=== PATIENT | female | born 1955 | race Caucasian/White ===

== ENCOUNTER 2017-02-01 16:02 | Inpatient (IN) | payer MEDICAID, OTHER ==
[2017-02-01 16:11] VITALS: BMI 26.5
[2017-02-01 16:27] LABS: BASO # 0.1 K/uL (0.0-0.2); BASO % 0.8 % (0.0-2.0); EOS # 0.1 K/uL (0.0-0.7); EOS % 1.3 % (0.0-4.0); HEMATOCRIT 45.7 % (34.0-47.0); LYMPH # 3.9 K/uL (1.0-4.3); LYMPH % 55.1 % (20.0-40.0); MEAN CELL VOLUME 89.2 fL (81.0-99.0); MEAN CORPUSCULAR HEMOGLOBIN 30.2 pg (27.0-31.0); MEAN CORPUSCULAR HGB CONC 33.9 g/dL (33.0-37.0); MEAN PLATELET VOLUME 7.9 fL (7.2-11.7); MONO # 0.4 K/uL (0.0-0.8); MONO % 5.4 % (0.0-10.0); NRBC % 0.1 % (0.0-2.0); RED CELL DISTRIBUTION WIDTH 13.1 % (11.5-14.5)
[2017-02-01] MEDS ORDERED: Labetalol 25mg/5ml Syringe ONE (16:30)
[2017-02-01 16:39] LABS: ALB/GLOB RATIO 1.2 (1.0-2.1); ALKALINE PHOSPHATASE 68 U/L (38-126); ALT/SGPT 28 U/L (9-52); AST/SGOT 28 U/L (14-36); BILIRUBIN,TOTAL 0.6 mg/dL (0.2-1.3); BLOOD UREA NITROGEN 12 mg/dL (7-17); CALCIUM 10.1 mg/dl (8.6-10.4); CARBON DIOXIDE 25 mmol/L (22-30); CHLORIDE 101 mmol/L (98-107); CHOLESTEROL 188 mg/dL (0-199); GFR AFRICAN-AMERICAN > 60; GLUCOSE,RANDOM 122 mg/dL (65-105); POTASSIUM 3.2 mmol/L (3.6-5.2); SODIUM 143 mmol/L (132-148)
[2017-02-01] MEDS ORDERED: levETIRAcetam 1,000 MG in Sodium Chloride 0.9% 100 ML IVPB STA (16:54)
--- NOTE | 2017-02-01 16:54 | CT ---
PROCEDURE: CT HEAD WITHOUT CONTRAST. HISTORY: Right sided weakness. Hypertensive. COMPARISON: None available. TECHNIQUE: Axial computed tomography images were obtained through the head/brain without intravenous contrast. Radiation dose: Total exam DLP = 870 mGy-cm. This CT exam was performed using one or more of the following dose reduction techniques: Automated exposure control, adjustment of the mA and/or kV according to patient size, and/or use of iterative reconstruction technique. FINDINGS: HEMORRHAGE: No intracranial hemorrhage. BRAIN: Subcortical and optic radiation edema is appreciated at the left frontal lobe but may spare the cortex. Mass effect causes a few mm but which midline shift towards the right ended a medial right frontal gyrus, possibly the cingulate gyrus appears somewhat hyperdense. This pattern is suspicious for vasogenic rather than cytotoxic edema and although upstroke is not completely excluded, this may represent neoplasm. No additional similar pattern is seen throughout the supra or infra tentorial brain parenchyma including the brainstem. Follow-up contrast CT the brain is advised for better characterization here. No suspicious extra-axial collection is identified in the midline brain and anatomy is otherwise unremarkable exclusive of the medial left frontal gyri. VENTRICLES: Unremarkable. No hydrocephalus. CALVARIUM: Unremarkable. PARANASAL SINUSES: Unremarkable as visualized. No significant inflammatory changes. MASTOID AIR CELLS: Unremarkable as visualized. No inflammatory changes. OTHER FINDINGS: None. IMPRESSION: Consider left frontal mass versus acute to subacute lobar brain infarction left frontal lobe. No intracranial hemorrhage. Minimal rightward midline shift is caused by edema locally. Follow-up CT with contrast is advised for better characterization. Findings were discussed with Dr. Thompson on 02/01/2017 16:35, with written down, read back confirmation. .
[2017-02-01 17:15] LABS: PHOSPHOROUS 3.1 mg/dL (2.5-4.5)
--- NOTE | 2017-02-01 17:22 | RAD ---
HISTORY: Right sided weakness. Hypertensive COMPARISON: No prior. FINDINGS: LUNGS: No active pulmonary disease. PLEURA: No significant pleural effusion identified, no pneumothorax apparent. CARDIOVASCULAR: Normal. OSSEOUS STRUCTURES: No significant abnormalities. VISUALIZED UPPER ABDOMEN: Normal. OTHER FINDINGS: None. IMPRESSION: No acute cardiopulmonary disease appreciated.
[2017-02-01] MEDS ORDERED: Iodixanol 320 MG/ML 100 ML BOTTLE IV ONE (17:37)
--- NOTE | 2017-02-01 18:34 | C.PDOC ---
Time Seen by Provider: 02/01/17 16:05 Chief Complaint (Nursing): Weakness/Neurological Deficit History Per: Patient, EMS, Family Onset/Duration Of Symptoms: Mins (ABOUT 45 minutes), Sudden Onset Current Symptoms Are (Timing): Still Present Fall Associated With With Symptoms: No Severity: Moderate Additional History Per: Prior Records - Symptoms Of CVA Character Of Deficits: Right: Weakness, Sensory Loss, Arm: Weakness, Sensory Loss, Leg: Weakness, Sensory Loss Recent Head Trauma: No Past Medical History Reviewed: Historical Data, Nursing Documentation, Vital Signs Vital Signs: Last Vital Signs Temp 99 F 02/01/17 16:43 Pulse 84 02/01/17 19:02 Resp 20 02/01/17 19:02 BP 163/76 H 02/01/17 19:02 Pulse Ox 99 02/01/17 19:04 - Medical History PMH: HTN Surgical History: No Surg Hx Family History: States: Unknown Family Hx - Social History Hx Alcohol Use: No Hx Substance Use: No Review Of Systems Except As Marked, All Systems Reviewed And Found Negative. Constitutional: Negative for: Fever, Weakness Cardiovascular: Negative for: Chest Pain Respiratory: Negative for: Shortness of Breath Gastrointestinal: Negative for: Vomiting, Abdominal Pain Musculoskeletal: Negative for: Neck Pain Skin: Negative for: Rash Neurological: Negative for: Headache Physical Exam - Physical Exam Appears: Non-toxic Skin: Normal Color, Warm, Dry, No Rash Head: Atraumatic, Normacephalic Eye(s): bilateral: PERRL, EOMI Neck: Normal ROM, Supple Cardiovascular: Rhythm Regular Respiratory: Normal Breath Sounds, No Accessory Muscle Use Gastrointestinal/Abdominal: Soft, No Tenderness Extremity: No Deformity Neurological/Psych: Oriented x3, Normal Speech, No Cerebellar Signs, No Normal Motor (Weakness on right side compared to left), No Normal Sensation (decreased sensation on right side compared to left), Other (Involuntary movements of right upper extremity. ) ED Course And Treatment - Laboratory Results Result Diagrams: 02/01/17 16:23 02/01/17 16:23 Lab Interpretation: No Acute Changes ECG: Interpreted By Me, Viewed By Me ECG Rhythm: Sinus Tachycardia, Nonspecific Changes ECG Interpretation: No Acute Changes Rate From EC O2 Sat by Pulse Oximetry: 99 Pulse Ox Interpretation: Normal - Radiology CXR: Viewed By Me, Read By Radiologist CXR Interpretation: Yes: No Acute Disease - CT Scan/US CT head Other Rad Studies (CT/US): Read By Radiologist, Radiology Report Reviewed CT/US Interpretation: IMPRESSION: Consider left frontal mass versus acute to subacute lobar brain infarction left frontal lobe. No intracranial hemorrhage. Minimal rightward midline shift is caused by edema locally. Follow-up CT with contrast is advised for better characterization. CTA of head Other Rad Studies (CT/US): Read By Radiologist, Radiology Report Reviewed CT/US Interpretation: Previously noted left frontal hypodensity with mild rightward midline shift and associated mass effect. demonstrates mild enhancement and is poorly characterized on the CT. Findings raise possibility for. neoplasm though other etiologies are not excluded. Recommend MR with contrast for further. evaluation. Progress Note: Pt is now sleeping and seizure activity has stopped after 1g of Keppra and a total of 6mg of Ativan. Reevaluation Time: 19:00 - Physician Consult Information Physician Contacted: Neal Iverson (Neuro) Outcome Of Conversation: He evaluated pt in the ED and recommended to give pt a total of 6mg of Ativan and 1 gram of Keppra IV. Progress - Interventions Interventions:: Observation, Oxygen - Medications Administered Oral: Aspirin Intravenous: Other (Ativan. Keppra) - Data Reviewed Data Reviewed: Lab, Diagnostic imaging, EKG, Old records - Critical Care Citical Care: Excluding Proc Time Critical Care Time: 60 minutes - Continuity of Care Discussed patient case with:: Patient, Family-HIPPA compliant, ED Nurse Discussed pt. case with farm consultant/specialty: Neurology Disposition Counseled Patient/Family Regarding: Studies Performed, Diagnosis - Disposition Disposition Time: 19:00 Condition: SERIOUS - Clinical Impression Clinical Impression: Focal seizures, Acute right-sided weakness Physician Patient Turnover Patient Signed Over To: Haley Chaudhry Handoff Comments: to monitor pt for seizure activity and if seizure activity returns to load pt with Dilantin and admit to appropriate level of care.
--- NOTE | 2017-02-01 19:01 | CP.PCM.CON ---
History of Present Illness - History of Present Illness History of Present Illness: Mrs. Albarran is a 62-year-old woman with a past medical history of hypertension who developed right sided weakness followed by continuous jerking of the right upper extremity that was rhythmic and responded to Ativan. Her symptoms started at around 3:15 PM. Her right sided weakness was 3/5 in the upper extremity, and 2/5 in the right lower extremity with an NIHSS of 4-5. CT scan of the head showed hypodensity in the left frontal lobe that was concerning for possible mass. She was not a candidate for IV tPA due to continued focal status epilepticus and seizures of the right upper extremity. Neuroradiologist recommended CT head with contrast to evaluate and differentiate between a mass lesion or a subacute stroke. Review of Systems - Review of Systems All systems: reviewed and no additional remarkable complaints except Past Patient History - Past Social History Smoking Status: Never Smoked - CARDIAC Hx Hypertension: Yes - PSYCHIATRIC Hx Substance Use: No Meds Allergies/Adverse Reactions: Allergies Allergy/AdvReac Type Severity Reaction Status Date / Time No Known Allergies Allergy Verified 02/01/17 16:11 Physical Exam - Constitutional Appears: Well - Head Exam Head Exam: ATRAUMATIC, NORMAL INSPECTION, NORMOCEPHALIC - Eye Exam Eye Exam: EOMI, Normal appearance, PERRL - ENT Exam ENT Exam: Mucous Membranes Dry - Neck Exam Neck exam: Positive for: Normal Inspection - Respiratory Exam Respiratory Exam: Clear to Auscultation Bilateral, NORMAL BREATHING PATTERN - Cardiovascular Exam Cardiovascular Exam: Bradycardia, +S1, +S2 - GI/Abdominal Exam GI & Abdominal Exam: Normal Bowel Sounds, Soft. absent: Tenderness - Rectal Exam Rectal Exam: Deferred - Extremities Exam Extremities exam: Positive for: normal inspection - Back Exam Back exam: NORMAL INSPECTION - Neurological Exam Neurological exam: Alert, CN II-XII Intact, Oriented x3, Reflexes Normal - Expanded Neurological Exam Expanded Patient oriented to: person, place, time Cranial nerves: EOM's Intact: Normal, Facial Palsey w/o Forehead Movement: Normal Ataxia: No Cerebellar Function: Finger to Nose: Abnormal Right, Heel to Romero: Abnormal Right Upper motor neuron: Babinski Sign: Normal Sensory exam: Lower Extremity Light Touch: Normal, Lower Extremity Pin Prick: Normal, Upper Extremity Light Touch: Normal, Upper Extremity Pin Prick: Normal Neuro motor strength exam: Left Upper Extremity: 5, Right Upper Extremity: 3, Left Lower Extremity: 5, Right Lower Extremity: 2/1 DTR: Achilles Tendon Left: 2+, Achilles Tendon Right: 2+, Bicep Left: 2+, Bicep Right: 2+, Brachioradialis Left: 2+, Brachioradialis Right: 2+, Patellar Left: 2 +, Patellar Right: 2+, Tricep Left: 2+, Tricep Right: 2+ - Psychiatric Exam Psychiatric exam: Normal Affect, Normal Mood - Skin Skin Exam: Dry, Intact, Normal Color, Warm Results - Vital Signs Recent Vital Signs: Last Vital Signs Temp 99 F 02/01/17 16:43 Pulse 91 H 02/01/17 18:45 Resp 22 02/01/17 18:45 BP 142/81 02/01/17 18:45 Pulse Ox 100 02/01/17 18:45 - Labs Result Diagrams: 02/01/17 16:23 02/01/17 16:23 Labs: Laboratory Results - last 24 hr 02/01/17 02/01/17 02/01/17 16:08 16:23 16:23 WBC 7.0 RBC 5.12 Hgb 15.5 Hct 45.7 MCV 89.2 MCH 30.2 MCHC 33.9 RDW 13.1 Plt Count 279 MPV 7.9 Neut % (Auto) 37.4 L Lymph % (Auto) 55.1 H Dade % (Auto) 5.4 Eos % (Auto) 1.3 Baso % (Auto) 0.8 Neut # 2.6 Lymph # 3.9 Dade # 0.4 Eos # 0.1 Baso # 0.1 PT 11.5 INR 1.0 APTT 29 Sodium Potassium Chloride Carbon Dioxide Anion Gap BUN Creatinine Est GFR ( Amer) Est GFR (Non-Af Amer) POC Glucose (mg/dL) 92 Random Glucose Calcium Phosphorus Magnesium Total Bilirubin AST ALT Alkaline Phosphatase Troponin I Total Protein Albumin Globulin Albumin/Globulin Ratio Triglycerides Cholesterol LDL Cholesterol Direct HDL Cholesterol Blood Type Antibody Screen 02/01/17 02/01/17 02/01/17 16:23 16:30 17:03 WBC RBC Hgb Hct MCV MCH MCHC RDW Plt Count MPV Neut % (Auto) Lymph % (Auto) Dade % (Auto) Eos % (Auto) Baso % (Auto) Neut # Lymph # Dade # Eos # Baso # PT INR APTT Sodium 143 Potassium 3.2 L Chloride 101 Carbon Dioxide 25 Anion Gap 20 BUN 12 Creatinine 0.9 Est GFR ( Amer) > 60 Est GFR (Non-Af Amer) > 60 POC Glucose (mg/dL) Random Glucose 122 H Calcium 10.1 Phosphorus 3.1 Magnesium 2.0 Total Bilirubin 0.6 AST 28 ALT 28 Alkaline Phosphatase 68 Troponin I < 0.0120 Total Protein 8.0 Albumin 4.4 Globulin 3.6 Albumin/Globulin Ratio 1.2 Triglycerides 89 Cholesterol 188 LDL Cholesterol Direct 108 HDL Cholesterol 77 H Blood Type B POSITIVE Antibody Screen Negative Assessment & Plan (1) Seizure disorder, focal motor Assessment and Plan: This could be due to a potential underlying mass lesion or a subacute stroke ( already changes on CT head). She was given 1000 mg of Keppra IV and given a total of 2 mg of Ativan so far. This has helped in decreasing the amplitude and frequency of the movements, but they have not subsided completely. I recommend giving another 4 mg of Ativan, and if the movements continue, we can load with Dilantin 10mg/Kg as well. Status: Acute Priority: Medium (2) Right sided weakness Assessment and Plan: It is difficult to determine if this is a stroke or a mass. However, Aspirin 81 mg PO, IV fluids, permissive hypertension, and MRI with and without contrast , MRA of the head/neck and PT/OT eval are recommended. Status: Acute
--- NOTE | 2017-02-01 21:21 | CP.PCM.HP ---
<Maggie InmanKelly - Last Filed: 02/02/17 06:30> History of Present Illness - History of Present Illness History of Present Illness: Patient is a 62 year old female with pmhx of hypertension who presents today with right sided weakness. Patient was at home around 3:15pm when she started to feel dizzy and weakness in her right arm and leg and was unable to walk. She then developed continuous rhythmic jerking of the right upper extremity which responded to ativan in the ED. Patient had been feeling fine until today. 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 Patient was seen after having received 1,000mg keppra and 6mg ativan. She had no movements in upper and lower extremity. Patient was asleep and unable to answer ROS due to the medications. History was provided by the family at bedside. As per family patient was having no chest pain or shortness of breath and had no symptoms like this in the past. PMD: Dr. Elliott Pmhx: HTN Psurg: none Famhx: none known Social: lives with and son, fully functioning/ active, denies tobacco, alcohol, drugs Home Medication: takes something for htn (family did not know what) that was stopped 2 days ago because she ran out Present on Admission - Present on Admission Any Indicators Present on Admission: No History of DVT/PE: No History of Uncontrolled Diabetes: No Urinary Catheter: No Decubitus Ulcer Present: No Review of Systems - Review of Systems Review of Systems: asleep due to medications Past Patient History - Past Social History Smoking Status: Never Smoked - CARDIAC Hx Hypertension: Yes - PSYCHIATRIC Hx Substance Use: No Meds Allergies/Adverse Reactions: Allergies Allergy/AdvReac Type Severity Reaction Status Date / Time No Known Allergies Allergy Verified 02/01/17 16:11 Physical Exam - Constitutional Appears: No Acute Distress - Head Exam Head Exam: ATRAUMATIC, NORMAL INSPECTION, NORMOCEPHALIC - Eye Exam Eye Exam: EOMI, Normal appearance - ENT Exam ENT Exam: Mucous Membranes Moist - Respiratory Exam Respiratory Exam: Clear to Auscultation Bilateral, NORMAL BREATHING PATTERN. absent: Rales, Rhonchi, Wheezes, Respiratory Distress, Stridor - Cardiovascular Exam Cardiovascular Exam: REGULAR RHYTHM, RRR. absent: Gallop, Rubs, Systolic Murmur Results - Vital Signs Recent Vital Signs: Last Vital Signs Temp 97.8 F 02/01/17 19:54 Pulse 81 02/01/17 19:54 Resp 20 02/01/17 19:54 BP 153/81 H 02/01/17 19:54 Pulse Ox 100 02/01/17 19:54 - Labs Result Diagrams: 02/01/17 16:23 02/01/17 16:23 Assessment & Plan - Assessment and Plan (Free Text) Assessment: 1. New Onset Seizure/ Right Sided Weakness mass vs CVA 6mg ativan given in ED 1000mg kepra given in ED if movements continue, give Dilantin 10mg/ Kg as per Dr. Iverson As per Dr. Iverson patient's NIHSS score 4-5 start Aspirin 81mg po daily once swallow eval done Keppra 500mg q12h iv swallow eval, keep NPO then follow recs PT/OT eval f/u TSH, lipid panel f/u MRI with and without contrast f/u CTA head cxray: no acute cardiopulmonary disease Head CT: consider left frontal mass versus acute to subacute lobar brain infarction left frontal lobe. no intracranial hemorrhage. minimal rightward midline shift is caused by edema locally. Follow-up CT with contrast is advised. 2. Prophylactic Measures Lovenox 40mg SC daily Pepcid 80cc/hr D5+1/2NS seizure precautions <Samuel Trevino - Last Filed: 02/02/17 06:53> Results - Vital Signs Recent Vital Signs: Last Vital Signs Temp 97.6 F 02/01/17 23:25 Pulse 73 02/01/17 23:25 Resp 20 02/01/17 23:25 BP 138/88 02/02/17 04:10 Pulse Ox 100 02/01/17 23:25 - Labs Result Diagrams: 02/01/17 16:23 02/01/17 16:23 Assessment & Plan - Date & Time Date: 02/02/17 (I have seen and exmamined the patient. I agree with the findings and plan of care as documented by Dr. Inman. Patient with new onset seizure and brain mass as seen on CT. Check MRI brain. Consult to Neuro appreciated. Keppra started. Ativan given with good response. Seizure precautions. Fall precautions. Monitor for acute changes.) Time: 06:52 Attending/Attestation - Attestation I have personally seen and examined this patient.: Yes I have fully participated in the care of the patient.: Yes I have reviewed all pertinent clinical information: Yes
[2017-02-01] MEDS: Dextrose 5%/0.45% NS 1,000 ML IV SCH (22:27)
[2017-02-02] MEDS: levETIRAcetam 500 MG in Sodium Chloride 0.9% 100 ML IVPB SCH ×2 (04:42→17:02)
[2017-02-02 07:37] LABS: BASO % 0.2 % (0.0-2.0); EOS % 0.5 % (0.0-4.0); HEMATOCRIT 44.4 % (34.0-47.0); LYMPH # 1.7 K/uL (1.0-4.3); MEAN CELL VOLUME 89.7 fL (81.0-99.0); MEAN CORPUSCULAR HEMOGLOBIN 29.6 pg (27.0-31.0); MEAN PLATELET VOLUME 7.5 fL (7.2-11.7); MONO # 0.4 K/uL (0.0-0.8); MONO % 5.6 % (0.0-10.0); RED CELL DISTRIBUTION WIDTH 13.5 % (11.5-14.5); WHITE BLOOD COUNT 7.2 K/uL (4.8-10.8)
[2017-02-02 07:45] LABS: CHLORIDE 107 mmol/L (98-107); POTASSIUM 3.8 mmol/L (3.6-5.2); SODIUM 143 mmol/L (132-148)
[2017-02-02 07:47] LABS: ALB/GLOB RATIO 1.4 (1.0-2.1); ALKALINE PHOSPHATASE 49 U/L (38-126); AST/SGOT 26 U/L (14-36); BILIRUBIN,TOTAL 0.8 mg/dL (0.2-1.3); CARBON DIOXIDE 28 mmol/L (22-30); GFR AFRICAN-AMERICAN > 60; TOTAL PROTEIN 6.9 g/dL (6.3-8.3)
[2017-02-02 07:48] LABS: ALT/SGPT 27 U/L (9-52); BLOOD UREA NITROGEN 9 mg/dL (7-17); CALCIUM 8.8 mg/dl (8.6-10.4); CHOLESTEROL 176 mg/dL (0-199); GLUCOSE,RANDOM 108 mg/dL (65-105); MAGNESIUM 2.1 mg/dL (1.6-2.3); PHOSPHOROUS 3.3 mg/dL (2.5-4.5)
[2017-02-02 08:18] LABS: THYROID STIMULATING HORMONE 1.83 mIU/L (0.46-4.68)
--- NOTE | 2017-02-02 09:40 | CT ---
PROCEDURE: CT Angiography of the Brain. HISTORY: RUE focal seizure. Right side weakness. COMPARISON: None available. TECHNIQUE: CT angiography of the intracranial arteries was performed. Coronal and sagittal maximum intensity projection reformated images were generated. Contrast: Visipaque 320, 100 cc administered intravenously. Total Radiation dose: [address] exam was performed using one or more of the following dose reduction techniques: Automated exposure control, adjustment of the mA and/or kV according to patient size, and/or use of iterative reconstruction technique. FINDINGS: INTERNAL CEREBRAL ARTERIES: Unremarkable. The skull base, petrous, cavernous and supraclinoid segments are bilaterally widely patient. ANTERIOR CEREBRAL ARTERIES: Unremarkable. A1 and A2 segments are widely patent. Smaller distal branches unremarkable, as visualized. MIDDLE CEREBRAL ARTERIES: Unremarkable. M1 and M2 segments are widely patent. Perisylvian branches grossly symmetric. POSTERIOR CIRCULATION: Basilar Artery: Unremarkable. Distal Vertebral Arteries: Unremarkable. Posterior Cerebral Arteries: Unremarkable. Posterior Inferior Cerebellar Arteries: Unremarkable. ANEURYSM/ VASCULAR MALFORMATIONS: None. OTHER FINDINGS: Subtle enhancement seen at the medial left frontal lobe however arteriovenous in venous enhanced and phases are also required a follow-up MRI with and without contrast is advised for better characterization of potential neoplasm or infarct here. IMPRESSION: Unremarkable CT Angiography of the Brain. Follow-up brain MRI is advised for better characterization of the abnormal soft tissue at the medial left frontal lobe currently being evaluated for possible evolving brain infarction or brain tumor.
[2017-02-02] MEDS: Enoxaparin 40 mg Syringe SC SCH ×2 (10:40→10:42)
[2017-02-02] MEDS: Dextrose 5%/0.45% NS 1,000 ML IV SCH (10:41)
[2017-02-02] MEDS: Sodium Chloride 0.9% 1,000 ML IV SCH (13:38)
--- NOTE | 2017-02-02 13:41 | CP.PCM.PN ---
Addendum entered and electronically signed by Caitlin Raymond DO, DO 17:11: Level of Consciousness: 1=Drowsy LOC to Questions: 0=Both comments correct LOC to commands: 0=Obeys both correctly Best Gaze: 0=Normal Visual: 0=No visual loss Facial: 0=Normal Motor Arm - Left: 0=No drift Motor Arm - Right: 1=No drift Motor Leg - Left: 0=No drift Motor Leg - Right: 2=No drift Limb Ataxia: 0=Absent Sensory: 0=Normal Best Language: 0=No aphasia Dysarthia: 0=Normal articulation Extinction & Inattention (Neglect): 0=Normal, no object Score: 4 CN exam intact negative Babinski. Original Note: <Caitlin Raymond DO - Last Filed: 02/02/17 13:56> Subjective - Date & Time of Evaluation Date of Evaluation: 02/02/17 Time of Evaluation: 07:40 - Subjective Subjective: Medicine progress note for Dr. Colbert Patient seen and examined with family at bedside. Permission to speak about patient's medical condition in front of family obtained. Per patient's son, patient is speaking in her normal voice but slower and softer. Patient has never had colonoscopy or mammogram. Patient reports weight loss but is unsure how much, but states clothes have been loser the past 7-8 months. Patient denies chest pain, admits to pain in left shoulder and reports history of rotator cuff injury. Patient reports bowel movements daily and denies blood. Patient reports decreased appetite but not sure how long. Patient also admits to headaches that occur nightly. Patient has history of HTN but states she ran out of medication 3-4 days prior to admission. Patient and family state they make medical decisions together as a family. Patient's sister Noemy Albarran left her phone number [phone] to be contacted for medical updates. Objective - Vital Signs/Intake and Output Vital Signs (last 24 hours): Temp Pulse Resp BP Pulse Ox 98.3 F 93 H 20 162/82 H 95 02/02/17 08:54 02/02/17 10:20 02/02/17 08:54 02/02/17 10:20 02/02/17 08:54 - Medications Medications: Current Medications Acetaminophen (Tylenol 325mg Tab) 650 mg PO Q6 PRN PRN Reason: Pain, moderate (4-7) Enoxaparin Sodium (Lovenox) 40 mg SC DAILY ON [facility] OF [facility] Famotidine (Pepcid) 20 mg IVP DAILY ON [facility] OF [facility] Last Admin: 02/02/17 10:40 Dose: 20 mg Levetiracetam 500 mg/ Sodium (Chloride) 105 mls @ 420 mls/hr IVPB Q12H ON LICENSE OF [facility] Last Admin: 02/02/17 04:42 Dose: 420 mls/hr Sodium Chloride (Sodium Chloride 0.9%) 1,000 mls @ 100 mls/hr IV .Q10H ON LICENSE OF [facility] Lorazepam (Ativan) 1 mg IVP Q4H PRN PRN Reason: Seizure activity Ondansetron HCl (Zofran Inj) 4 mg IVP Q4 PRN PRN Reason: Nausea/Vomiting Last Admin: 02/02/17 11:31 Dose: 4 mg Pneumococcal Polyvalent Vaccine (Pneumovax 23 Vaccine) 0.5 ml IM .ONCE ONE Stop: 02/03/17 10:01 - Labs Labs: 02/02/17 07:30 02/02/17 07:30 PT 11.5 SECONDS (9.7-12.2) 02/01/17 16:23 INR 1.0 02/01/17 16:23 APTT 29 SECONDS (21-34) 02/01/17 16:23 - Constitutional Appears: Non-toxic, No Acute Distress - Head Exam Head Exam: ATRAUMATIC, NORMOCEPHALIC - Eye Exam Eye Exam: EOMI - ENT Exam ENT Exam: Mucous Membranes Moist - Respiratory Exam Respiratory Exam: Clear to Ausculation Bilateral, NORMAL BREATHING PATTERN - Cardiovascular Exam Cardiovascular Exam: +S1, +S2 - GI/Abdominal Exam GI & Abdominal Exam: Soft, Normal Bowel Sounds. absent: Tenderness - Extremities Exam Extremities Exam: Pedal Edema (bilateral mild 1+ pitting, no erythema) - Neurological Exam Neurological Exam: Alert, Awake Neuro motor strength exam: Left Upper Extremity: 5, Right Upper Extremity: 4, Left Lower Extremity: 5, Right Lower Extremity: 4 - Skin Skin Exam: Dry, Warm - Additional Findings Additional findings: right breast 4 o'clock palpable abnormality left breast 8 o'clock palpable abnormality no nipple retraction, no peau d'orange no breast discharge Assessment and Plan - Assessment and Plan (Free Text) Assessment: New Onset Seizure/ Right Sided Weakness Head CT: consider left frontal mass versus acute to subacute lobar brain infarction left frontal lobe. no intracranial hemorrhage. minimal rightward midline shift is caused by edema locally. Follow-up CT with contrast is advised. CTA Head: mild right midline shift, mass effect, possibility neoplasm. MRI with contrast recommended MRI ordered continue keppra IV 500mg Q12h Passed bedside swallow, but patient very lethargic. CLD for now, pureed when more alert Dr. Iverson, neurology, consulted- help appreciated Bilateral palpable breast abnormalities will check diagnostic mammogram and ultrasound Heme-onc, Dr. Min- help appreciated Bilateral lower extremity swelling will check venous dopplers Prophylactic Measures Lovenox 40mg SC daily Pepcid seizure precautions aspiration precautions PT/OT <Rossy Colbert V - Last Filed: 02/02/17 16:21> Objective - Vital Signs/Intake and Output Vital Signs (last 24 hours): Temp Pulse Resp BP Pulse Ox 98.3 F 93 H 20 162/82 H 95 02/02/17 08:54 02/02/17 10:20 02/02/17 08:54 02/02/17 10:20 02/02/17 08:54 - Medications Medications: Current Medications Acetaminophen (Tylenol 325mg Tab) 650 mg PO Q6 PRN PRN Reason: Pain, moderate (4-7) Last Admin: 02/02/17 13:36 Dose: 650 mg Enoxaparin Sodium (Lovenox) 40 mg SC DAILY [facility] Famotidine (Pepcid) 20 mg IVP DAILY ON [facility] OF [facility] Last Admin: 02/02/17 10:40 Dose: 20 mg Levetiracetam 500 mg/ Sodium (Chloride) 105 mls @ 420 mls/hr IVPB Q12H [facility] Last Admin: 02/02/17 04:42 Dose: 420 mls/hr Sodium Chloride (Sodium Chloride 0.9%) 1,000 mls @ 100 mls/hr IV .Q10H [facility] Last Admin: 02/02/17 13:38 Dose: 100 mls/hr Lorazepam (Ativan) 1 mg IVP Q4H PRN PRN Reason: Seizure activity Ondansetron HCl (Zofran Inj) 4 mg IVP Q4 PRN PRN Reason: Nausea/Vomiting Last Admin: 02/02/17 11:31 Dose: 4 mg Pneumococcal Polyvalent Vaccine (Pneumovax 23 Vaccine) 0.5 ml IM .ONCE ONE Stop: 02/03/17 10:01 - Labs Labs: 02/02/17 07:30 02/02/17 07:30 PT 11.5 SECONDS (9.7-12.2) 02/01/17 16:23 INR 1.0 02/01/17 16:23 APTT 29 SECONDS (21-34) 02/01/17 16:23 Attending/Attestation - Attestation I have personally seen and examined this patient.: Yes I have fully participated in the care of the patient.: Yes I have reviewed all pertinent clinical information, including history, physical exam and plan: Yes Notes (Text): Patient seen, examined, and case discussed with day-time resident this morning. At bedside is patient's son Maldonado and sister, Noemy Albarran. Patient permits us speak regarding her medical information in front of her family. Patient's son Maldonado providing translation. Patient is primarily Malay speaking. Per son , patient's seizure witnessed by her , and he came shortly after. This is first time seizure. Patient also reporting lack of appetite, and unintentional weight loss about 15lbs over "long time". Patient has not completed screening exams including mammography, nor does she routinely check her breast, and nor screening colonoscopy. Patient is weak, lethargic, soft spoken, per son, voice is almost normal, +gag reflex, cranial nerves appear intact (cannot assess CN I and C8 without proper equipment which is not present in the hospital), negative babinski, Weak RUE/RLE 3-4 out of 5 and Left UE/LE: 5 /5. No observed spascitiy. Prior to my arrival, nurse had noted twitching over the right lower extremity which was not present during my exam. Breast exam allowed and witnessed with Alessia, patient's primary nurse, and resident, Dr Estuardo Raymond (both female). * Right breast: 4 o'clock palpable abnormality, mobile, nontender, about 3 finger breadths * left breast: 8 o'clock palpable abnormality, appears fixed, irregular on palpation, about 2 finger breadths * no nipple retraction, no peau d'orange noted b/l * no breast discharge elicited b/l Skin exam: no observed moles noted on the skin Swallow eval: passed patient but had following vomitting after her test. PRN Zofran start; recommended pureed diet following no further episodes of nausea/ vomitting Assessment/Plan 1) New Onset Seizure Right Sided Weakness * Neurology (Dr. Iverson) on board-->help appreciated-->will endorse to colleague for the upcoming week * CT head (02/01/17): consider left frontal mass versus acute to subacute lobar brain infarction left frontal lobe. No intracranial hemorrhage. Minimal rightward midline shift is caused by edema local * On admission: patient received total Ativan 6mg IV, Keppra 1000mg IVX1, Aspirin 325mg PO X1 * CT Angiography (02/02/17): unremarkable CT Angiography of the Brain. Follow-up brain MRI is advised for better characterization of abnormal soft tissue at the medial left frontal lobe currently evaluated for possible evolving brain infarction or brain tumor * Brain MRI w and w/o pending. Head and MRA Neck pending. note: this is a holiday weekend, MRI trailer is currently closed * Keppra 500mg IV Q 12hours * Ativan 1mg IVP Q 4 H PRN seizure activity * NS 100cc/hr * Swallow eval: patient passed but she threw up shortly afterwards. Per swallow , recommend for liquids, if no nausea, may proceed with pureed diet * Lipid Panel: T, Chol: 176, LDL: 95, HDl: 70 * TSH:1.83 * [id number]: pending * PT/OT eval * 02/02/17: discussed with Dr. Iverson who will come see the patient later today, D/ c dextrose containing fluids, NS 100cc/hr, DVT ppx, concern for possible malignancy; Breast exam was performed and witnessed; abnormal exam in both breast; Patient has not completed outpatient screening exams for breast nor colon cancer. On my exam, unable to discern for any moles to consider melanoma. Ordered for CT Chest/Abdomen/Pelvis r/o malignancy; Order for stool occult blood; Heme-onc consult. Patient is awaiting Brain/Head/Neck MRI prior to consulting Neurosurgery. 2) Breast Mass * on exam * Resident discussed with radiology, breast US and mammography for Friday 3) History of Hypertension * will need to f/u patient's pharmacy regarding patient's outpatient medications * Per neurology, permit for permissive hypertension 4) Prophylactic Measures * Lovenox 40mg SC daily * Ativan 1mg IVQ 4h PRN seizure activity * NS 100cc/hr * Aspiration precautions * Seizure precautions * Medical decision maker: there is no official healthy proxy; per son Maldonado, they will make decision-making for mother together. Her sister Noemy Albarran left her phone number [phone].
[2017-02-02] MEDS ORDERED: Iodixanol 320 MG/ML 100 ML BOTTLE IV ONE (14:50)
--- NOTE | 2017-02-02 16:46 | CT ---
PROCEDURE: CT Chest, Abdomen and Pelvis with intravenous contrast HISTORY: brain mass, concern for malignancy COMPARISON: None. TECHNIQUE: IV dose administered: Visipaque 320, 100 cc Radiation dose: Total exam DLP = 560 mGy-cm. This CT exam was performed using one or more of the following dose reduction techniques: Automated exposure control, adjustment of the mA and/or kV according to patient size, and/or use of iterative reconstruction technique. FINDINGS: CT CHEST WITH CONTRAST: LUNGS: Clear. No nodule, mass or consolidation. Limited low limited bilateral basilar dependent atelectasis identified. Central airways appear clear. MEDIASTINUM: Unremarkable. Normal caliber aorta and pulmonary arterial trunk. No aortic dissection. Normal size heart. LYMPH NODES: Unremarkable. PLEURA: Unremarkable. No pneumothorax. No pleural fluid. BONES: Unremarkable. OTHER FINDINGS: None. CT ABDOMEN AND PELVIS: LIVER: Diffuse fatty infiltration liver is appreciated without prominent intrahepatic biliary duct dilatation or discrete mass evident. GALLBLADDER AND BILE DUCTS: Gallbladder is distended. The lumen is opacified with vicarious excretion finding the contrast material. PANCREAS: Unremarkable. No gross lesion or ductal dilatation. SPLEEN: Unremarkable. ADRENALS: Unremarkable. No mass. KIDNEYS AND URETERS: 1.9 x 1.8 cm left renal cysts identified with the kidneys bilaterally otherwise unremarkable. VASCULATURE: Unremarkable. No aortic aneurysm. BOWEL: Evaluation of the bowel is compromised by lack of oral contrast ingestion. . No obstruction. No gross mural thickening. APPENDIX: Appendix not identified. PERITONEUM: Unremarkable. No free fluid. No free air. LYMPH NODES: Unremarkable. No enlarged lymph nodes. BLADDER: Unremarkable. REPRODUCTIVE: Unremarkable. BONES: No acute fracture. OTHER FINDINGS: None. IMPRESSION: No definitive pattern of malignancy is appreciated in the chest, abdomen or pelvis. Limited bilateral basilar dependent atelectasis identified at the bilateral lower lobes. No central lymphadenopathy throughout. Evaluation of bowel, particularly the large bowel, is compromised by the lack of oral contrast administration with the stomach also poorly evaluated due to the same. The simple left renal cyst identified in the abdomen.
--- NOTE | 2017-02-02 19:19 | CP.PCM.PN ---
Subjective - Date & Time of Evaluation Date of Evaluation: 02/02/17 Time of Evaluation: 19:15 - Subjective Subjective: Mrs. Albarran was seen and examined today at bedside. She has improved with regard to the right side weakness and is also no longer having any focal seizures of the right side. There were no acute events overnight. Objective - Vital Signs/Intake and Output Vital Signs (last 24 hours): Temp Pulse Resp BP Pulse Ox 98.4 F 85 18 154/91 H 100 02/02/17 16:06 02/02/17 16:38 02/02/17 16:06 02/02/17 16:38 02/02/17 16:06 Intake and Output: 02/02/17 02/03/17 18:59 06:59 Intake Total 850 Balance 850 - Medications Medications: Current Medications Acetaminophen (Tylenol 325mg Tab) 650 mg PO Q6 PRN PRN Reason: Pain, moderate (4-7) Last Admin: 02/02/17 13:36 Dose: 650 mg Enoxaparin Sodium (Lovenox) 40 mg SC DAILY [facility] Famotidine (Pepcid) 20 mg IVP DAILY [facility] Last Admin: 02/02/17 10:40 Dose: 20 mg Levetiracetam 500 mg/ Sodium (Chloride) 105 mls @ 420 mls/hr IVPB Q12H [facility] Last Admin: 02/02/17 17:02 Dose: 420 mls/hr Sodium Chloride (Sodium Chloride 0.9%) 1,000 mls @ 100 mls/hr IV .Q10H [facility] Last Admin: 02/02/17 13:38 Dose: 100 mls/hr Lorazepam (Ativan) 1 mg IVP Q4H PRN PRN Reason: Seizure activity Ondansetron HCl (Zofran Inj) 4 mg IVP Q4 PRN PRN Reason: Nausea/Vomiting Last Admin: 02/02/17 11:31 Dose: 4 mg Pneumococcal Polyvalent Vaccine (Pneumovax 23 Vaccine) 0.5 ml IM .ONCE ONE Stop: 02/03/17 10:01 - Labs Labs: 02/02/17 07:30 02/02/17 07:30 PT 11.5 SECONDS (9.7-12.2) 02/01/17 16:23 INR 1.0 02/01/17 16:23 APTT 29 SECONDS (21-34) 02/01/17 16:23 - Neurological Exam Neurological Exam: Alert, Awake, CN II-XII Intact, Oriented x3 Neuro motor strength exam: Left Upper Extremity: 5, Right Upper Extremity: 4, Left Lower Extremity: 5, Right Lower Extremity: 4 Additional comments: NIHSS= 2 Assessment and Plan (1) Seizure disorder, focal motor Assessment & Plan: Continue Keppra 500 mg BID. Will obtain MRI of the brain with and without contrast to determine if there is an underlying mass. Status: Acute (2) Right sided weakness Status: Resolved
--- NOTE | 2017-02-02 19:23 | CP.PCM.CON ---
History of Present Illness - History of Present Illness History of Present Illness: 62 year old female with a history of HTN, presenting with right sided weakness and jerking of her RUE, found to have a left sided brain mass. The patient reports to sudden weakness occuring earlier today with associated RUE jerking which prompted her family to bring her to the hospital. In the hospital, imaging revealed a possible left sided frontal mass vs CVA. She does admit to diminished appetite and weightloss. She is unable to quantify how much weight but notes her clothes are more loose. Past medical history: HTN Past surgical history: None Family history: Denies hematologic and oncologic problems Social history: Denies tobacco, alcohol, and illicit drug use. Allergies: NKA Review of systems: All remaining review of systems including HEENT, cardiovascular, respiratory, gastrointestinal, genitourinary, musculoskeletal, dermatologic, neurologic, and psychiatric are negative unless mentioned in the HPI. Past Patient History - Past Medical History & Family History Past Medical History?: Yes - Past Social History Smoking Status: Never Smoked - CARDIAC Hx Hypertension: Yes - PULMONARY Hx Respiratory Disorders: No - NEUROLOGICAL Hx Neurological Disorder: No - HEENT Hx HEENT Problems: No - RENAL Hx Chronic Kidney Disease: No - ENDOCRINE/METABOLIC Hx Endocrine Disorders: No - HEMATOLOGICAL/ONCOLOGICAL Hx Blood Disorders: No - INTEGUMENTARY Hx Dermatological Problems: No - MUSCULOSKELETAL/RHEUMATOLOGICAL Hx Musculoskeletal Disorders: No Hx Falls: No - GASTROINTESTINAL Hx Gastrointestinal Disorders: No - GENITOURINARY/GYNECOLOGICAL Hx Genitourinary Disorders: No - PSYCHIATRIC Hx Substance Use: No - SURGICAL HISTORY Hx Surgeries: No - ANESTHESIA Hx Anesthesia: No Meds Allergies/Adverse Reactions: Allergies Allergy/AdvReac Type Severity Reaction Status Date / Time No Known Allergies Allergy Verified 02/01/17 16:11 - Medications Medications: Current Medications Acetaminophen (Tylenol 325mg Tab) 650 mg PO Q6 PRN PRN Reason: Pain, moderate (4-7) Last Admin: 02/02/17 13:36 Dose: 650 mg Enoxaparin Sodium (Lovenox) 40 mg SC DAILY [facility] Famotidine (Pepcid) 20 mg IVP DAILY [facility] Last Admin: 02/02/17 10:40 Dose: 20 mg Levetiracetam 500 mg/ Sodium (Chloride) 105 mls @ 420 mls/hr IVPB Q12H [facility] Last Admin: 02/02/17 17:02 Dose: 420 mls/hr Sodium Chloride (Sodium Chloride 0.9%) 1,000 mls @ 100 mls/hr IV .Q10H [facility] Last Admin: 02/02/17 13:38 Dose: 100 mls/hr Lorazepam (Ativan) 1 mg IVP Q4H PRN PRN Reason: Seizure activity Ondansetron HCl (Zofran Inj) 4 mg IVP Q4 PRN PRN Reason: Nausea/Vomiting Last Admin: 02/02/17 11:31 Dose: 4 mg Pneumococcal Polyvalent Vaccine (Pneumovax 23 Vaccine) 0.5 ml IM .ONCE ONE Stop: 02/03/17 10:01 Physical Exam - Head Exam Head Exam: ATRAUMATIC - Eye Exam Eye Exam: Normal appearance - ENT Exam ENT Exam: Mucous Membranes Dry - Respiratory Exam Respiratory Exam: NORMAL BREATHING PATTERN - Cardiovascular Exam Cardiovascular Exam: +S1, +S2 - GI/Abdominal Exam GI & Abdominal Exam: Normal Bowel Sounds - Extremities Exam Extremities exam: Positive for: normal inspection Results - Vital Signs Recent Vital Signs: Last Vital Signs Temp 98.4 F 02/02/17 16:06 Pulse 85 02/02/17 16:38 Resp 18 02/02/17 16:06 BP 154/91 H 02/02/17 16:38 Pulse Ox 100 02/02/17 16:06 - Labs Result Diagrams: 02/02/17 07:30 02/02/17 07:30 Labs: Laboratory Results - last 24 hr 02/02/17 02/02/17 02/02/17 07:30 07:30 07:30 WBC 7.2 RBC 4.95 Hgb 14.7 Hct 44.4 MCV 89.7 MCH 29.6 MCHC 33.0 RDW 13.5 Plt Count 251 MPV 7.5 Neut % (Auto) 70.7 Lymph % (Auto) 23.0 [place] % (Auto) 5.6 Eos % (Auto) 0.5 Baso % (Auto) 0.2 Neut # 5.1 Lymph # 1.7 [place] # 0.4 Eos # 0.0 Baso # 0.0 Sodium 143 Potassium 3.8 Chloride 107 Carbon Dioxide 28 Anion Gap 12 BUN 9 Creatinine 0.7 Est GFR ( Amer) > 60 Est GFR (Non-Af Amer) > 60 Random Glucose 108 H Calcium 8.8 Phosphorus 3.3 Magnesium 2.1 Total Bilirubin 0.8 AST 26 ALT 27 Alkaline Phosphatase 49 Total Protein 6.9 Albumin 4.0 Globulin 2.9 Albumin/Globulin Ratio 1.4 Triglycerides 43 D Cholesterol 176 LDL Cholesterol Direct 95 HDL Cholesterol 70 TSH 3rd Generation 1.83 Assessment & Plan (1) Brain mass Assessment and Plan: for MRI brain for further evaluation ?CVA vs malignancy will f/u CT C/A/P with IV contrast to evaluate for possible malignancy further treatment recommendations based on the above. Status: Acute
[2017-02-03] MEDS: levETIRAcetam 500 MG in Sodium Chloride 0.9% 100 ML IVPB SCH ×2 (04:11→16:59)
[2017-02-03] MEDS: Sodium Chloride 0.9% 1,000 ML IV SCH ×4 (04:12→23:42)
[2017-02-03 06:45] LABS: ALB/GLOB RATIO 1.3 (1.0-2.1); ALKALINE PHOSPHATASE 39 U/L (38-126); ALT/SGPT 25 U/L (9-52); AST/SGOT 28 U/L (14-36); BILIRUBIN,TOTAL 0.7 mg/dL (0.2-1.3); BLOOD UREA NITROGEN 7 mg/dL (7-17); CALCIUM 8.8 mg/dl (8.6-10.4); CARBON DIOXIDE 25 mmol/L (22-30); CHLORIDE 105 mmol/L (98-107); GFR AFRICAN-AMERICAN > 60; GLUCOSE,RANDOM 87 mg/dL (65-105); MAGNESIUM 2.1 mg/dL (1.6-2.3); PHOSPHOROUS 3.2 mg/dL (2.5-4.5); POTASSIUM 3.7 mmol/L (3.6-5.2); SODIUM 139 mmol/L (132-148); TOTAL PROTEIN 6.1 g/dL (6.3-8.3)
[2017-02-03 06:47] LABS: BASO % 0.5 % (0.0-2.0); EOS # 0.1 K/uL (0.0-0.7); EOS % 2.5 % (0.0-4.0); HEMATOCRIT 41.9 % (34.0-47.0); LYMPH # 1.9 K/uL (1.0-4.3); LYMPH % 34.5 % (20.0-40.0); MEAN CELL VOLUME 89.3 fL (81.0-99.0); MEAN CORPUSCULAR HEMOGLOBIN 30.3 pg (27.0-31.0); MEAN CORPUSCULAR HGB CONC 33.9 g/dL (33.0-37.0); MEAN PLATELET VOLUME 7.7 fL (7.2-11.7); MONO # 0.3 K/uL (0.0-0.8); MONO % 5.9 % (0.0-10.0); NRBC % 0.1 % (0.0-2.0); RED CELL DISTRIBUTION WIDTH 13.4 % (11.5-14.5); WHITE BLOOD COUNT 5.4 K/uL (4.8-10.8)
--- NOTE | 2017-02-03 08:57 | CP.PCM.PN ---
Subjective - Date & Time of Evaluation Date of Evaluation: 02/03/17 Time of Evaluation: 08:50 - Subjective Subjective: Patient was seen and examined This is my first time meeting the patient and so I had to review previous notes and discuss with family present in the room who also helped with translation. Patient was admitted on 02/01 with severe right upper and lower extremity weakness and tremors. A CT scan in the showed hypodensity in the left frontal lobe that was concerning for possible mass vs a CVA. She does have history of HTN. When she intially came to the ER she had muscle strength that was 3/5. When I saw her today she was able to raise her right arm above her head without assistance as well as flex and extend the elbows and wrist against resistance as well as grasp my hand 4/5 strength. She did not appear to have a face drooping when I saw her. EOMI intact. On the lower extremity she was able to raise her right leg 45 degrees for more than 5 seconds. Also was able to fle and extend her knee. She could also plantar and dorsiflex right foot. When asked to try to walk they explain she is still having too much weakness to try. Currently on a liquid diet and per family she did ok with this. Denied chest pain, denied shortness of breath, denied palpitations, denied abdominal pain, denied actue changes in vision, denied headaches. Pending MRI at this time to give further information if this is a mass affect from a tumor or CVA. I ordered an echo as well as carotid doppler. Added a statin too. Objective - Vital Signs/Intake and Output Vital Signs (last 24 hours): Temp Pulse Resp BP Pulse Ox 98.3 F 87 18 155/84 H 100 02/03/17 07:45 02/03/17 07:45 02/03/17 07:45 02/03/17 07:45 02/03/17 07:45 Intake and Output: 02/03/17 02/03/17 06:59 18:59 Intake Total 1040 Balance 1040 - Medications Medications: Current Medications Acetaminophen (Tylenol 325mg Tab) 650 mg PO Q6 PRN PRN Reason: Pain, moderate (4-7) Last Admin: 02/03/17 08:32 Dose: 650 mg Enoxaparin Sodium (Lovenox) 40 mg SC DAILY [facility] Famotidine (Pepcid) 20 mg IVP DAILY [facility] Last Admin: 02/02/17 10:40 Dose: 20 mg Levetiracetam 500 mg/ Sodium (Chloride) 105 mls @ 420 mls/hr IVPB Q12H [facility] Last Admin: 02/03/17 04:11 Dose: 420 mls/hr Sodium Chloride (Sodium Chloride 0.9%) 1,000 mls @ 100 mls/hr IV .Q10H [facility] Last Admin: 02/03/17 04:12 Dose: 100 mls/hr Lorazepam (Ativan) 1 mg IVP Q4H PRN PRN Reason: Seizure activity Ondansetron HCl (Zofran Inj) 4 mg IVP Q4 PRN PRN Reason: Nausea/Vomiting Last Admin: 02/02/17 11:31 Dose: 4 mg Pneumococcal Polyvalent Vaccine (Pneumovax 23 Vaccine) 0.5 ml IM .ONCE ONE Stop: 02/03/17 10:01 - Labs Labs: 02/03/17 06:16 02/03/17 06:16 PT 11.5 SECONDS (9.7-12.2) 02/01/17 16:23 INR 1.0 02/01/17 16:23 APTT 29 SECONDS (21-34) 02/01/17 16:23 - Constitutional Appears: No Acute Distress, Unkempt, Chronically Ill - Head Exam Head Exam: ATRAUMATIC, NORMAL INSPECTION, NORMOCEPHALIC - Eye Exam Eye Exam: EOMI - ENT Exam ENT Exam: Mucous Membranes Moist - Respiratory Exam Respiratory Exam: Clear to Ausculation Bilateral, NORMAL BREATHING PATTERN - Cardiovascular Exam Cardiovascular Exam: REGULAR RHYTHM. absent: Irregular Rhythm, Murmur - GI/Abdominal Exam GI & Abdominal Exam: Soft, Normal Bowel Sounds. absent: Guarding, Rigid, Tenderness - Neurological Exam Neurological Exam: Abnormal Gait, Alert, Awake, Oriented x3 Neuro motor strength exam: Left Upper Extremity: 5, Right Upper Extremity: 4, Left Lower Extremity: 5, Right Lower Extremity: 4 - Psychiatric Exam Psychiatric exam: Depressed, Flat Affect - Skin Skin Exam: Normal Color, Warm Assessment and Plan - Assessment and Plan (Free Text) Assessment: Assessment/Plan 1) New Onset Seizure Right Sided Weakness * 02/03: Still pending MRI studies at the moment. Ordered also echo as well as carotid, and statin in case this turns out to be a CVA. Continue on Keppra in case the potential mass seen on CT could be causing seizures. On exam she seems to have more strength now on the right upper and right lower extremity. * Neurology (Dr. Iverson) on board-->help appreciated-->will endorse to colleague for the upcoming week * CT head (02/01/17): consider left frontal mass versus acute to subacute lobar brain infarction left frontal lobe. No intracranial hemorrhage. Minimal rightward midline shift is caused by edema local * On admission: patient received total Ativan 6mg IV, Keppra 1000mg IVX1, Aspirin 325mg PO X1 * CT Angiography (02/02/17): unremarkable CT Angiography of the Brain. Follow-up brain MRI is advised for better characterization of abnormal soft tissue at the medial left frontal lobe currently evaluated for possible evolving brain infarction or brain tumor * Brain MRI w and w/o pending. Head and MRA Neck pending. note: this is a holiday weekend, MRI trailer is currently closed * Keppra 500mg IV Q 12hours * Ativan 1mg IVP Q 4 H PRN seizure activity * Lipid Panel: T, Chol: 176, LDL: 95, HDl: 70 * TSH:1.83 * [id number]: pending * 02/02/17: discussed with Dr. Iverson who will come see the patient later today, D/ c dextrose containing fluids, NS 100cc/hr, DVT ppx, concern for possible malignancy; Breast exam was performed and witnessed; abnormal exam in both breast; Patient has not completed outpatient screening exams for breast nor colon cancer. On my exam, unable to discern for any moles to consider melanoma. Ordered for CT Chest/Abdomen/Pelvis r/o malignancy; Order for stool occult blood; Heme-onc consult. Patient is awaiting Brain/Head/Neck MRI prior to consulting Neurosurgery. 2) Breast Mass * on exam * Resident discussed with radiology, breast US and mammography for Friday 3) History of Hypertension 02/03: Systolic BPs in the 150s, patient now taking liquids. Will decrease IVF rate to 75 * will need to f/u patient's pharmacy regarding patient's outpatient medications * Per neurology, permit for permissive hypertension 4) Prophylactic Measures * Lovenox 40mg SC daily * Ativan 1mg IVQ 4h PRN seizure activity * Aspiration precautions * Seizure precautions * Medical decision maker: there is no official healthy proxy; per son Maldonado, they will make decision-making for mother together. Her sister Noemy Albarran left her phone number [phone].
[2017-02-03] MEDS ORDERED: Pneumococcal 23-Valent Vaccine IM ONE (10:00)
[2017-02-03] MEDS: Enoxaparin 40 mg Syringe SC SCH (10:14)
[2017-02-04] MEDS: levETIRAcetam 500 MG in Sodium Chloride 0.9% 100 ML IVPB SCH ×2 (04:26→16:47)
[2017-02-04] MEDS: Sodium Chloride 0.9% 1,000 ML IV SCH (06:26)
[2017-02-04 07:42] LABS: BASO % 0.6 % (0.0-2.0); EOS # 0.2 K/uL (0.0-0.7); EOS % 3.7 % (0.0-4.0); HEMATOCRIT 44.9 % (34.0-47.0); LYMPH # 1.8 K/uL (1.0-4.3); LYMPH % 33.8 % (20.0-40.0); MEAN CELL VOLUME 89.7 fL (81.0-99.0); MEAN CORPUSCULAR HEMOGLOBIN 30.2 pg (27.0-31.0); MEAN CORPUSCULAR HGB CONC 33.7 g/dL (33.0-37.0); MEAN PLATELET VOLUME 7.5 fL (7.2-11.7); MONO # 0.4 K/uL (0.0-0.8); MONO % 7.1 % (0.0-10.0); NRBC % 0.1 % (0.0-2.0); RED CELL DISTRIBUTION WIDTH 13.5 % (11.5-14.5); WHITE BLOOD COUNT 5.4 K/uL (4.8-10.8)
[2017-02-04 07:57] LABS: CHLORIDE 107 mmol/L (98-107); POTASSIUM 3.5 mmol/L (3.6-5.2); SODIUM 147 mmol/L (132-148)
[2017-02-04 07:59] LABS: GFR AFRICAN-AMERICAN > 60
[2017-02-04 08:00] LABS: ALB/GLOB RATIO 1.3 (1.0-2.1); ALKALINE PHOSPHATASE 51 U/L (38-126); ALT/SGPT 23 U/L (9-52); AST/SGOT 33 U/L (14-36); BILIRUBIN,TOTAL 0.9 mg/dL (0.2-1.3); BLOOD UREA NITROGEN 5 mg/dL (7-17); CARBON DIOXIDE 26 mmol/L (22-30); GLUCOSE,RANDOM 89 mg/dL (65-105); PHOSPHOROUS 2.5 mg/dL (2.5-4.5); TOTAL PROTEIN 7.2 g/dL (6.3-8.3)
[2017-02-04 08:01] LABS: CALCIUM 8.9 mg/dl (8.6-10.4)
--- NOTE | 2017-02-04 09:30 | CP.PCM.PN ---
<Maldonado Arguello - Last Filed: 02/04/17 12:43> Subjective - Date & Time of Evaluation Date of Evaluation: 02/04/17 Time of Evaluation: 09:26 - Subjective Subjective: PGY1 Note for Dr. Schilling HPI: Patient seen and examined at bedside. Medical student Hillary Steele translated. Patient complaining of head pain but no other complaints. She looks comfortable. Explained that we are waitng for the MRI to be done to further classify her lesion as well as echo and carotid doppler. Objective - Vital Signs/Intake and Output Vital Signs (last 24 hours): Temp Pulse Resp BP Pulse Ox 98.1 F 84 20 167/98 H 98 02/04/17 08:00 02/04/17 08:00 02/04/17 08:00 02/04/17 08:00 02/04/17 08:00 Intake and Output: 02/04/17 02/04/17 06:59 18:59 Intake Total 600 Balance 600 - Medications Medications: Current Medications Acetaminophen (Tylenol 325mg Tab) 650 mg PO Q6 PRN PRN Reason: Pain, moderate (4-7) Last Admin: 02/03/17 19:28 Dose: 650 mg Enoxaparin Sodium (Lovenox) 40 mg SC DAILY [facility] Last Admin: 02/03/17 10:14 Dose: 40 mg Famotidine (Pepcid) 20 mg IVP DAILY [facility] Last Admin: 02/03/17 10:14 Dose: 20 mg Levetiracetam 500 mg/ Sodium (Chloride) 105 mls @ 420 mls/hr IVPB Q12H [facility] Last Admin: 02/04/17 04:26 Dose: 420 mls/hr Sodium Chloride (Sodium Chloride 0.9%) 1,000 mls @ 75 mls/hr IV .[id number] [facility] Last Admin: 02/04/17 06:26 Dose: 75 mls/hr Lorazepam (Ativan) 1 mg IVP Q4H PRN PRN Reason: Seizure activity Ondansetron HCl (Zofran Inj) 4 mg IVP Q4 PRN PRN Reason: Nausea/Vomiting Last Admin: 02/02/17 11:31 Dose: 4 mg Rosuvastatin Calcium (Crestor) 5 mg PO HS [facility] Last Admin: 02/03/17 21:59 Dose: 5 mg - Labs Labs: 02/04/17 07:24 02/04/17 07:24 PT 11.5 SECONDS (9.7-12.2) 02/01/17 16:23 INR 1.0 02/01/17 16:23 APTT 29 SECONDS (21-34) 02/01/17 16:23 - Constitutional Appears: Well, Non-toxic, No Acute Distress - Head Exam Head Exam: ATRAUMATIC, NORMAL INSPECTION, NORMOCEPHALIC - ENT Exam ENT Exam: Mucous Membranes Moist - Respiratory Exam Respiratory Exam: Clear to Ausculation Bilateral, NORMAL BREATHING PATTERN. absent: Rales, Rhonchi, Wheezes, Stridor - Cardiovascular Exam Cardiovascular Exam: REGULAR RHYTHM, RRR. absent: Bradycardia, Tachycardia, JVD , Murmur - GI/Abdominal Exam GI & Abdominal Exam: Distended, Soft, Tenderness, Normal Bowel Sounds - Extremities Exam Extremities Exam: Joint Swelling. absent: Tenderness - Neurological Exam Neurological Exam: Alert, Awake, Oriented x3 - Psychiatric Exam Psychiatric exam: Normal Affect, Normal Mood - Skin Skin Exam: Dry, Intact, Normal Color, Warm Assessment and Plan - Assessment and Plan (Free Text) Assessment: New Onset Seizure, Right Sided Weakness * F/U MRI * F/U Carotid * F/U Echo * F/U Neck MRI * Neurology (Dr. Iverson) * CT head (02/01/17): consider left frontal mass versus acute to subacute lobar brain infarction left frontal lobe. No intracranial hemorrhage. Minimal rightward midline shift is caused by edema local * CT Angiography (02/02/17): unremarkable CT Angiography of the Brain. Follow-up brain MRI is advised for better characterization of abnormal soft tissue at the medial left frontal lobe currently evaluated for possible evolving brain infarction or brain tumor * CT C/A/P: No mailg * Keppra 500mg IV Q 12hours * Ativan 1mg IVP Q 4 H PRN seizure activity Breast Mass * F/U Breast US/Mammo History of Hypertension * Permissive hypertension (>[id number]) Prophylactic Measures * Lovenox 40mg SC daily * Ativan 1mg IVQ 4h PRN seizure activity * Aspiration precautions * Seizure precautions * Medical decision maker: there is no official healthy proxy; per son Maldonado, they will make decision-making for mother together. Her sister Noemy Albarran left her phone number [phone]. * Spoke with case management regarding wether the patient can get TCU placement. They are trying but may be difficult because of her lack of insurance. <Abel Schilling H - Last Filed: 02/04/17 14:46> Objective - Vital Signs/Intake and Output Vital Signs (last 24 hours): Temp Pulse Resp BP Pulse Ox 98.1 F 84 20 167/98 H 98 02/04/17 08:00 02/04/17 08:00 02/04/17 08:00 02/04/17 08:00 02/04/17 08:00 Intake and Output: 02/04/17 02/04/17 06:59 18:59 Intake Total 600 Balance 600 - Medications Medications: Current Medications Acetaminophen (Tylenol 325mg Tab) 650 mg PO Q6 PRN PRN Reason: Pain, moderate (4-7) Last Admin: 02/03/17 19:28 Dose: 650 mg Enoxaparin Sodium (Lovenox) 40 mg SC DAILY [facility] Last Admin: 02/04/17 12:15 Dose: 40 mg Famotidine (Pepcid) 20 mg IVP DAILY [facility] Last Admin: 02/04/17 12:15 Dose: 20 mg Levetiracetam 500 mg/ Sodium (Chloride) 105 mls @ 420 mls/hr IVPB Q12H [facility] Last Admin: 02/04/17 04:26 Dose: 420 mls/hr Sodium Chloride (Sodium Chloride 0.9%) 1,000 mls @ 75 mls/hr IV .[id number] [facility] Last Admin: 02/04/17 06:26 Dose: 75 mls/hr Lorazepam (Ativan) 1 mg IVP Q4H PRN PRN Reason: Seizure activity Ondansetron HCl (Zofran Inj) 4 mg IVP Q4 PRN PRN Reason: Nausea/Vomiting Last Admin: 02/02/17 11:31 Dose: 4 mg Rosuvastatin Calcium (Crestor) 5 mg PO HS [facility] Last Admin: 02/03/17 21:59 Dose: 5 mg - Labs Labs: 02/04/17 07:24 02/04/17 07:24 PT 11.5 SECONDS (9.7-12.2) 02/01/17 16:23 INR 1.0 02/01/17 16:23 APTT 29 SECONDS (21-34) 02/01/17 16:23 Attending/Attestation - Attestation I have personally seen and examined this patient.: Yes I have fully participated in the care of the patient.: Yes I have reviewed all pertinent clinical information, including history, physical exam and plan: Yes Notes (Text): Medical attending: Patient was seen and examined by me. Agree with the above note by the resident. Today we observed her walking with PT - she still needed a lot of assistance as well as a rolling walker. When seen in the AM she had not yet had MRI done for further inspection of the area that could be a potential mass or CVA. Per discussion with the patient's son the patient's voice is not as slow as before. There is still weakness in the right extremity. 4/5 strength thank you Abel Schilling
[2017-02-04] MEDS: Enoxaparin 40 mg Syringe SC SCH (12:15)
--- NOTE | 2017-02-04 14:52 | MRI ---
PROCEDURE: MR Angiography of the neck without contrast dated 02/04/2017 HISTORY: Right-sided weakness COMPARISON: Correlation made with concurrent MRA brain and carotid Doppler both obtained same day. Comparison also made with CTA of the brain 02/01/2017. TECHNIQUE: 3D [id number] angiography of the neck was performed. Rotating maximum intensity projection images of the cervical carotid and vertebral arteries were generated. The origins of the common carotid arteries were not visualized, which is a limitation inherent to the non-contrast time of flight technique. . . Note dictated study is somewhat suboptimal due the stacking artifact on the 2D [id number] MIP images. FINDINGS: Common carotid arteries, carotid bifurcations and visualized portions of the internal carotid arteries appear widely patent without evidence of occlusion or significant stenosis. . The vertebral arteries are also widely patent so far as can be seen, right-sided which is larger in caliber/more dominant than the left. Impression: The slightly limited study as described above. No evidence of occlusion nor significant stenosis of the visualized portions of the common carotid arteries, carotid bifurcations or internal carotid arteries. There is asymmetry of the vertebral arteries right-sided which is more larger in caliber/more dominant than the left felt to represent anatomic variant.
--- NOTE | 2017-02-04 15:53 | MRI ---
Procedure Magnetic Resonance Angiography Brain History Right-sided weakness Comparison Comparison made with CTA of the brain dated 02/01/17. Technique 3D time of flight MR angiography of the intracranial arteries was performed. Rotating maximum intensity projection images were generated. . Findings Internal Cerebral Arteries Unremarkable. The skull base, petrous, cavernous and supraclinoid segments are bilaterally widely patient. Anterior Cerebral Arteries There is marked asymmetry of the A1 segments, left-side of which is much smaller in caliber compared to the right side felt to represent an anatomic variation. The A2 segments are patent however mild localized deviation (of the distal A2 segments) to the right due to a left medial frontal lobe mass less well seen as compared to CTA. Middle Cerebral Arteries Slight asymmetry of the M1 segments,, left-side of which is slightly smaller in caliber than the right felt to represent an anatomic variation . M1 and M2 segments are widely patent. Perisylvian branches grossly symmetric. Posterior Circulation Basilar Artery: Unremarkable. Distal Vertebral Arteries: There is asymmetry of the distal margins of the vertebral arteries right-sided which is larger in caliber more dominant than the left also felt to represent an anatomic variation. Posterior Cerebral Arteries: Unremarkable. Posterior Inferior Cerebellar Arteries: Unremarkable. Aneurysm/ Vascular Malformations None. Other Findings None. Impression Aside from what felt to represent anatomic variations (smaller left A1, M1 segments and distal left vertebral artery) cranial circulation is otherwise appears unremarkable.
--- NOTE | 2017-02-04 23:28 | MRI ---
PROCEDURE: MRI brain dated 02/04/2017. HISTORY: Brain mass versus CVA. COMPARISON: Comparison made with noncontrast CT scan of the brain and CTA brain both dated 02/01/2017. TECHNIQUE: Multiplanar, multisequence MR images of the brain were obtained with and without intravenous contrast enhancement. Approximately 12 cc Omniscan contrast injected for this procedure. FINDINGS: Findings: Re- demonstrated to better advantage is a heterogeneously enhancing elliptical shaped mass lesion, the epicenter of which appears to be located in the medial aspect of the left frontal lobe which the appears cortically based lower lobe abuts the interhemispheric fissure. . . This lesion measures approximately 4.3 ap x 3.4cc x 2.3t cm. Lesion appears to involve the cingulate gyrus with compression of the cingulate sulcus bilaterally and inferior compression/ displacement of the lateral ventricles which are splayed. There is also significant compression of the mid body of the corpus callosum. . There appears to be slight midline shift as well. . The lesion is surrounded by a rim of vasogenic edema which extends superiorly into the centrum semiovale and laterally into the left frontal subcortical white matter. This lesion is of uncertain etiology though differential diagnosis would include a primary tumor such is a ganglioglioma, oligodendroglioma, dembryoplastic neuroepithelial tumor (DNET), glioma lymphoma . Possibility of a malignant meningioma given its proximity to the dura along the interhemispheric fissure not excluded. Note also made of a nonenhancing prolonged T2 signal changes in the white matter left posteromedial temporal lobe extending into the temporoparietal watershed zone along the optic radiations. No evidence of abnormal enhancement in this location. IMPRESSION: There is a relatively large elliptical shaped heterogeneously enhancing mass lesion which appears to arise from the medial aspect left frontal lobe abutting the interhemispheric fissure and extending inferiorly. . Findings consistent with tumor; differential diagnostic considerations include a primary tumor such is a ganglioglioma, oligodendroglioma, dembryoplastic neuroepithelial tumor (DNET), glioma lymphoma . Possibility of a malignant meningioma given its proximity to the dura along the interhemispheric fissure not excluded. . There is surrounding edema within the adjacent white matter extending laterally into the subcortical white matter. The lesion exerts mass effect with inferior compression and splaying of the superior margins of the lateral ventricles as well as compression of the corpus callosum. See above discussion for additional details. Findings discussed with the resident induction heating equipment setter Dr. Barlow.
[2017-02-05] MEDS: Sodium Chloride 0.9% 1,000 ML IV SCH ×2 (01:37→04:02)
[2017-02-05] MEDS: levETIRAcetam 500 MG in Sodium Chloride 0.9% 100 ML IVPB SCH ×2 (04:04→17:34)
[2017-02-05] MEDS: Enoxaparin 40 mg Syringe SC SCH (09:27)
--- NOTE | 2017-02-05 10:38 | VASCLAB ---
PROCEDURE: HISTORY: CVA work up COMPARISON: None available. TECHNIQUE: Grayscale and duplex Doppler evaluation of the cervical carotid and vertebral arteries were performed. The common carotid, carotid bifurcations and cervical Internal Carotid Artery (ICA) and proximal External Carotid Artery (ECA) were evaluated. The vertebral arteries were evaluated for gross patency and flow direction. Report prepared by Phoenix Wong, BS, RVT FINDINGS: RIGHT CAROTID ARTERIES: 1. Common Carotid Artery: No significant focal plaque formation of the right common carotid artery. Maximum Peak Systolic velocity: 67 cm/sec: End-diastolic velocity 19 cm/sec. 2. Carotid Bifurcation: plaque formation. Maximum Peak Systolic velocity: 76 cm/sec: End-diastolic velocity 16 cm/sec. 3. Internal Carotid Artery: Plaque description: 3.1. Proximal Segment: Peak systolic velocity 79 cm/sec: End-diastolic velocity 27 cm/sec - % stenosis 0-15% 3.2. Middle Segment: Peak systolic velocity 86 cm/sec: End-diastolic velocity 32 cm/sec - % stenosis 0-15% 3.3. Distal Segment: Peak systolic velocity 102 cm/sec: End-diastolic velocity 32 cm/sec - % stenosis 0-15% 4. External Carotid Artery: No significant focal plaque formation. Peak systolic velocity 108 cm/sec 5. ICA/CCA Ratio: 1.5 LEFT CAROTID ARTERIES: 1. Common Carotid Artery: No significant focal plaque formation of the left common carotid artery. Maximum Peak Systolic velocity: 76 cm/sec: End-diastolic velocity 15 cm/sec. 2. Carotid Bifurcation: plaque formation. Maximum Peak Systolic velocity: 70 cm/sec: End-diastolic velocity 11 cm/sec. 3. Internal Carotid Artery: Plaque description: 3.1. Proximal Segment: Peak systolic velocity 79 cm/sec: End-diastolic velocity 22 cm/sec - % stenosis 0-15% 3.2. Middle Segment: Peak systolic velocity 99 cm/sec: End-diastolic velocity 27 cm/sec - % stenosis 0-15% 3.3. Distal Segment: Peak systolic velocity 86 cm/sec: End-diastolic velocity 18 cm/sec - % stenosis 0-15% 4. External Carotid Artery: No significant focal plaque formation. Peak systolic velocity 90 cm/sec 5. ICA/CCA Ratio: 1.3 VERTEBRAL ARTERIES: 1. Right Vertebral Artery: The right vertebral artery flow direction is antegrade. 2. Left Vertebral Artery: The left vertebral artery flow direction is antegrade. OTHER FINDINGS: 1. Right Brachial Blood pressure: 144 mmHg. 2. Left Brachial Blood pressure: 140 mmHg. IMPRESSION: RIGHT: Duplex scan does not suggest hemodynamically significant stenosis of the right extracranial carotid arteries. LEFT: Duplex scan does not suggest hemodynamically significant stenosis of the left extracranial carotid arteries.
--- NOTE | 2017-02-05 10:39 | VASCLAB ---
PROCEDURE: Lower Extremity Venous Duplex Exam. HISTORY: b/l swelling PRIORS: None. TECHNIQUE: Bilateral common femoral, femoral, popliteal and posterior tibial, peroneal and great saphenous veins were evaluated. Flow was assessed with color Doppler, compressibility, assessment of phasic flow and augmentation response. Report prepared by Phoenix Wong, ALEC, RVT FINDINGS: RIGHT: 1. Common Femoral Vein: 1.1. Compressibility - Fully compressible: Thrombus - None : Flow - Phasic: Augmentation -Normal: Reflux - None. 2. Femoral Vein: 2.1. Compressibility - Fully compressible: Thrombus - None : Flow - Phasic: Augmentation -Normal: Reflux - None. 3. Popliteal Vein: 3.1. Compressibility - Fully compressible: Thrombus - None : Flow - Phasic: Augmentation -Normal: Reflux - None. 4. Posterior Tibial Vein: 4.1. Compressibility - Fully compressible: Thrombus - None: Flow - Phasic: Augmentation -Normal: Reflux - None. 5. Peroneal Vein: 5.1. Compressibility - Fully compressible: Thrombus - None: Flow - Phasic: Augmentation -Normal: Reflux - None. 6. Great Saphenous Vein: 6.1. Compressibility - Fully compressible: Thrombus - None: Flow - Phasic: Augmentation - Normal: Reflux - None. LEFT: 1. Common Femoral Vein: 1.1. Compressibility - Fully compressible: Thrombus - None: Flow - Phasic: Augmentation -Normal: Reflux - None. 2. Femoral Vein: 2.1. Compressibility - Fully compressible: Thrombus - None: Flow - Phasic: Augmentation -Normal: Reflux - None. 3. Popliteal Vein: 3.1. Compressibility - Fully compressible: Thrombus - None : Flow - Phasic: Augmentation -Normal: Reflux - None. 4. Posterior Tibial Vein: 4.1. Compressibility - Fully compressible: Thrombus - None: Flow - Phasic: Augmentation -Normal: Reflux - None. 5. Peroneal Vein: 5.1. Compressibility - Fully compressible: Thrombus - None: Flow - Phasic: Augmentation -Normal: Reflux - None. 6. Great Saphenous Vein: 6.1. Compressibility - Fully compressible: Thrombus - None: Flow - Phasic: Augmentation - Normal: Reflux - None. OTHER FINDINGS: Right: None significant. Left: None significant. IMPRESSION: Right: No evidence of deep or superficial vein thrombosis of the right lower extremity. Normal valve function noted of the right side. Left: No evidence of deep or superficial vein thrombosis of the left lower extremity. Normal valve function noted of the left side.
--- NOTE | 2017-02-05 11:48 | CP.PCM.PN ---
<Maldonado Arguello - Last Filed: 02/05/17 13:27> Subjective - Date & Time of Evaluation Date of Evaluation: 02/05/17 Time of Evaluation: 11:45 - Subjective Subjective: PGY1 Note for Dr. Schilling HPI: Patient seen and examined at bedside. Working with PT. Still unsteady on her feet. Still has weakness on the R side. No changes in her vision her confusion. No other complaints at this time. Son and patient were informed of the tumor found on MRI. Told them we would consult neurosurgery and see what they had to say. Objective - Vital Signs/Intake and Output Vital Signs (last 24 hours): Temp Pulse Resp BP Pulse Ox 98.6 F 67 20 159/81 H 99 02/05/17 07:00 02/05/17 07:00 02/05/17 07:00 02/05/17 07:00 02/05/17 07:00 - Medications Medications: Current Medications Acetaminophen (Tylenol 325mg Tab) 650 mg PO Q6 PRN PRN Reason: Pain, moderate (4-7) Last Admin: 02/05/17 07:43 Dose: 650 mg Enoxaparin Sodium (Lovenox) 40 mg SC DAILY [facility] Last Admin: 02/05/17 09:27 Dose: 40 mg Famotidine (Pepcid) 20 mg IVP DAILY [facility] Last Admin: 02/05/17 09:27 Dose: 20 mg Levetiracetam 500 mg/ Sodium (Chloride) 105 mls @ 420 mls/hr IVPB Q12H [facility] Last Admin: 02/05/17 04:04 Dose: 420 mls/hr Sodium Chloride (Sodium Chloride 0.9%) 1,000 mls @ 75 mls/hr IV .[id number] [facility] Last Admin: 02/05/17 04:02 Dose: 75 mls/hr Lorazepam (Ativan) 1 mg IVP Q4H PRN PRN Reason: Seizure activity Ondansetron HCl (Zofran Inj) 4 mg IVP Q4 PRN PRN Reason: Nausea/Vomiting Last Admin: 02/02/17 11:31 Dose: 4 mg Rosuvastatin Calcium (Crestor) 5 mg PO HS [facility] Last Admin: 02/04/17 21:36 Dose: 5 mg - Labs Labs: 02/04/17 07:24 02/04/17 07:24 PT 11.5 SECONDS (9.7-12.2) 02/01/17 16:23 INR 1.0 02/01/17 16:23 APTT 29 SECONDS (21-34) 02/01/17 16:23 - Constitutional Appears: Well, Non-toxic, No Acute Distress - Head Exam Head Exam: ATRAUMATIC, NORMAL INSPECTION, NORMOCEPHALIC - Eye Exam Eye Exam: EOMI Pupil Exam: NORMAL ACCOMODATION - ENT Exam ENT Exam: Mucous Membranes Moist - Respiratory Exam Respiratory Exam: Clear to Ausculation Bilateral - Cardiovascular Exam Cardiovascular Exam: REGULAR RHYTHM - GI/Abdominal Exam GI & Abdominal Exam: Soft, Normal Bowel Sounds. 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 Iverson) * CT C/A/P: No mailg * Keppra 500mg IV Q 12hours * Ativan 1mg IVP Q 4 H PRN seizure activity * F/U Breast US/Mammo Prophylactic Measures * Lovenox 40mg SC daily * Ativan 1mg IVQ 4h PRN seizure activity * Aspiration precautions * Seizure precautions * Medical decision maker: there is no official healthy proxy; per son Maldonado, they will make decision-making for mother together. Her sister Noemy Albarran left her phone number [phone]. * Spoke with case management regarding wether the patient can get TCU placement. They are trying but may be difficult because of her lack of insurance. <Abel Schilling H - Last Filed: 02/05/17 16:41> Objective - Vital Signs/Intake and Output Vital Signs (last 24 hours): Temp Pulse Resp BP Pulse Ox 98.6 F 76 20 166/90 H 97 02/05/17 15:54 02/05/17 15:54 02/05/17 15:54 02/05/17 15:54 02/05/17 15:54 Intake and Output: 02/05/17 02/05/17 06:59 18:59 Intake Total 730 Balance 730 - Medications Medications: Current Medications Acetaminophen (Tylenol 325mg Tab) 650 mg PO Q6 PRN PRN Reason: Pain, moderate (4-7) Last Admin: 02/05/17 07:43 Dose: 650 mg Enoxaparin Sodium (Lovenox) 40 mg SC DAILY [facility] Last Admin: 02/05/17 09:27 Dose: 40 mg Famotidine (Pepcid) 20 mg IVP DAILY [facility] Last Admin: 02/05/17 09:27 Dose: 20 mg Levetiracetam 500 mg/ Sodium (Chloride) 105 mls @ 420 mls/hr IVPB Q12H [facility] Last Admin: 02/05/17 04:04 Dose: 420 mls/hr Sodium Chloride (Sodium Chloride 0.9%) 1,000 mls @ 75 mls/hr IV .[id number] [facility] Last Admin: 02/05/17 04:02 Dose: 75 mls/hr Lorazepam (Ativan) 1 mg IVP Q4H PRN PRN Reason: Seizure activity Ondansetron HCl (Zofran Inj) 4 mg IVP Q4 PRN PRN Reason: Nausea/Vomiting Last Admin: 02/02/17 11:31 Dose: 4 mg Rosuvastatin Calcium (Crestor) 5 mg PO HS [facility] Last Admin: 02/04/17 21:36 Dose: 5 mg - Labs Labs: 02/04/17 07:24 02/04/17 07:24 PT 11.5 SECONDS (9.7-12.2) 02/01/17 16:23 INR 1.0 02/01/17 16:23 APTT 29 SECONDS (21-34) 02/01/17 16:23 Attending/Attestation - Attestation I have personally seen and examined this patient.: Yes I have fully participated in the care of the patient.: Yes I have reviewed all pertinent clinical information, including history, physical exam and plan: Yes Notes (Text): Medical Attending: Patient was seen and examined by me. Agree with the above note by the resident. 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 I spoke with the patient's son at bedside and explained this to him Also per my discussion with PT, today she was not able to stand up and walk like previous yesterday. Because of the location of this mass will need to reach out to hemematology oncology as well as neurosurgery to see what option are thank you Abel Schilling
--- NOTE | 2017-02-05 13:18 | CP.PCM.PN ---
Subjective - Date & Time of Evaluation Date of Evaluation: 02/05/17 Time of Evaluation: 13:00 - Subjective Subjective: No complaints Objective - Vital Signs/Intake and Output Vital Signs (last 24 hours): Temp Pulse Resp BP Pulse Ox 98.6 F 67 20 159/81 H 99 02/05/17 07:00 02/05/17 07:00 02/05/17 07:00 02/05/17 07:00 02/05/17 07:00 - Medications Medications: Current Medications Acetaminophen (Tylenol 325mg Tab) 650 mg PO Q6 PRN PRN Reason: Pain, moderate (4-7) Last Admin: 02/05/17 07:43 Dose: 650 mg Enoxaparin Sodium (Lovenox) 40 mg SC DAILY [facility] Last Admin: 02/05/17 09:27 Dose: 40 mg Famotidine (Pepcid) 20 mg IVP DAILY [facility] Last Admin: 02/05/17 09:27 Dose: 20 mg Levetiracetam 500 mg/ Sodium (Chloride) 105 mls @ 420 mls/hr IVPB Q12H [facility] Last Admin: 02/05/17 04:04 Dose: 420 mls/hr Sodium Chloride (Sodium Chloride 0.9%) 1,000 mls @ 75 mls/hr IV .[id number] [facility] Last Admin: 02/05/17 04:02 Dose: 75 mls/hr Lorazepam (Ativan) 1 mg IVP Q4H PRN PRN Reason: Seizure activity Ondansetron HCl (Zofran Inj) 4 mg IVP Q4 PRN PRN Reason: Nausea/Vomiting Last Admin: 02/02/17 11:31 Dose: 4 mg Rosuvastatin Calcium (Crestor) 5 mg PO HS [facility] Last Admin: 02/04/17 21:36 Dose: 5 mg - Labs Labs: 02/04/17 07:24 02/04/17 07:24 PT 11.5 SECONDS (9.7-12.2) 02/01/17 16:23 INR 1.0 02/01/17 16:23 APTT 29 SECONDS (21-34) 02/01/17 16:23 - Head Exam Head Exam: ATRAUMATIC - Eye Exam Eye Exam: Normal appearance - ENT Exam ENT Exam: Mucous Membranes Dry - Respiratory Exam Respiratory Exam: NORMAL BREATHING PATTERN - Cardiovascular Exam Cardiovascular Exam: +S1, +S2 - GI/Abdominal Exam GI & Abdominal Exam: Normal Bowel Sounds - Extremities Exam Extremities Exam: Normal Inspection Assessment and Plan (1) Brain mass Assessment & Plan: MRI findings concerning for tumor CT C/A/P does not suggest overt evidence of malignancy recommend neurosurgical evaluation for resectability determination Status: Acute
[2017-02-06] MEDS: levETIRAcetam 500 MG in Sodium Chloride 0.9% 100 ML IVPB SCH ×2 (04:51→16:41)
--- NOTE | 2017-02-06 06:25 | CP.PCM.PN ---
<Maldonado Arguello - Last Filed: 02/06/17 13:30> Subjective - Date & Time of Evaluation Date of Evaluation: 02/06/17 Time of Evaluation: 06:20 - Subjective Subjective: PGY1 Note for Dr. Schilling HPI: Patient seen and examined at bedside. Doing well with no complaints at this time. Son translating at bedside for us. Patient is hungry. Neurosurgery talked to the son and said would need to have a family meeting to discuss possible intervention. Denies vision changes, HAHN, SOB, N/V/D/F. Objective - Vital Signs/Intake and Output Vital Signs (last 24 hours): Temp Pulse Resp BP Pulse Ox 98.7 F 76 20 144/83 96 02/06/17 04:05 02/06/17 04:05 02/06/17 04:05 02/06/17 04:05 02/06/17 04:05 Intake and Output: 02/05/17 02/06/17 18:59 06:59 Intake Total 730 540 Balance 730 540 - Medications Medications: Current Medications Acetaminophen (Tylenol 325mg Tab) 650 mg PO Q6 PRN PRN Reason: Pain, moderate (4-7) Last Admin: 02/05/17 07:43 Dose: 650 mg Enoxaparin Sodium (Lovenox) 40 mg SC DAILY [facility] Last Admin: 02/05/17 09:27 Dose: 40 mg Famotidine (Pepcid) 20 mg IVP DAILY [facility] Last Admin: 02/05/17 09:27 Dose: 20 mg Levetiracetam 500 mg/ Sodium (Chloride) 105 mls @ 420 mls/hr IVPB Q12H [facility] Last Admin: 02/06/17 04:51 Dose: 420 mls/hr Lorazepam (Ativan) 1 mg IVP Q4H PRN PRN Reason: Seizure activity Ondansetron HCl (Zofran Inj) 4 mg IVP Q4 PRN PRN Reason: Nausea/Vomiting Last Admin: 02/02/17 11:31 Dose: 4 mg Rosuvastatin Calcium (Crestor) 5 mg PO HS [facility] Last Admin: 02/05/17 22:23 Dose: 5 mg - Labs Labs: 02/04/17 07:24 02/04/17 07:24 PT 11.5 SECONDS (9.7-12.2) 02/01/17 16:23 INR 1.0 02/01/17 16:23 APTT 29 SECONDS (21-34) 02/01/17 16:23 - Constitutional Appears: Well, Non-toxic, No Acute Distress - Head Exam Head Exam: ATRAUMATIC, NORMAL INSPECTION, NORMOCEPHALIC - Eye Exam Eye Exam: EOMI - ENT Exam ENT Exam: Mucous Membranes Moist - Respiratory Exam Respiratory Exam: Clear to Ausculation Bilateral, NORMAL BREATHING PATTERN - Cardiovascular Exam Cardiovascular Exam: REGULAR RHYTHM, RRR. absent: Bradycardia, Tachycardia - GI/Abdominal Exam GI & Abdominal Exam: Soft, Normal Bowel Sounds. 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 Iverson) * CT C/A/P: No mailg * Keppra 500mg IV Q 12hours * Ativan 1mg IVP Q 4 H PRN seizure activity * F/U Breast US/Mammo Prophylactic Measures * Lovenox 40mg SC daily * Ativan 1mg IVQ 4h PRN seizure activity * Aspiration precautions * Seizure precautions * Medical decision maker: there is no official healthy proxy; per son Maldonado, they will make decision-making for mother together. Her sister Noemy Albarran left her phone number [phone]. * Spoke with case management regarding wether the patient can get TCU placement. They are trying but may be difficult because of her lack of insurance. <Abel Schilling - Last Filed: 02/06/17 17:36> Objective - Vital Signs/Intake and Output Vital Signs (last 24 hours): Temp Pulse Resp BP Pulse Ox 98.5 F 77 20 164/85 H 97 02/06/17 16:25 02/06/17 16:25 02/06/17 16:25 02/06/17 16:25 02/06/17 16:25 Intake and Output: 02/06/17 02/06/17 06:59 18:59 Intake Total 540 700 Balance 540 700 - Medications Medications: Current Medications Acetaminophen (Tylenol 325mg Tab) 650 mg PO Q6 PRN PRN Reason: Pain, moderate (4-7) Last Admin: 02/06/17 16:39 Dose: 650 mg Enoxaparin Sodium (Lovenox) 40 mg SC DAILY [facility] Last Admin: 02/06/17 09:18 Dose: 40 mg Famotidine (Pepcid) 20 mg IVP DAILY [facility] Last Admin: 02/06/17 09:18 Dose: 20 mg Levetiracetam 500 mg/ Sodium (Chloride) 105 mls @ 420 mls/hr IVPB Q12H [facility] Last Admin: 02/06/17 16:41 Dose: 420 mls/hr Lorazepam (Ativan) 1 mg IVP Q4H PRN PRN Reason: Seizure activity Ondansetron HCl (Zofran Inj) 4 mg IVP Q4 PRN PRN Reason: Nausea/Vomiting Last Admin: 02/02/17 11:31 Dose: 4 mg Rosuvastatin Calcium (Crestor) 5 mg PO HS [facility] Last Admin: 02/05/17 22:23 Dose: 5 mg - Labs Labs: 02/04/17 07:24 02/04/17 07:24 PT 11.5 SECONDS (9.7-12.2) 02/01/17 16:23 INR 1.0 02/01/17 16:23 APTT 29 SECONDS (21-34) 02/01/17 16:23 Attending/Attestation - Attestation I have personally seen and examined this patient.: Yes I have fully participated in the care of the patient.: Yes I have reviewed all pertinent clinical information, including history, physical exam and plan: Yes Notes (Text): Medical attending: Patient was seen and examined by me, agrees the above note by durable medical equipment repairer. The patient's family member was present as well to help with translation. As mentioned before we did talk to him about the results of the MRI. The patient's son explained that earlier in the day neurosurgery did calm and talked with them that she may potentially have surgery next week however it would be rather high risk surgery and that the neurosurgeon asked for them to think about this before proceeding with the surgery. On physical exam she still has weakness particularly on the right-hand side. She is able to elevate her arms as well as squeeze my hand on exam however the muscle strength is 4-5 also she remains difficulty walking as well. She needs a lot of assistance as well as that of a rolling walker. Thank you very much, Abel Schilling
[2017-02-06] MEDS: Enoxaparin 40 mg Syringe SC SCH (09:18)
--- NOTE | 2017-02-06 14:41 | CP.PCM.PN ---
Subjective - Date & Time of Evaluation Date of Evaluation: 02/06/17 Time of Evaluation: 14:38 - Subjective Subjective: spoke to son and huband via son acting as steno typist They are agreeable to surgery They understand high risk involved, particularly of hemiplegia aphasia, coma Will schedule for 7:30 Friday morning All family's questions answered appropriatly and acceptably to them Objective - Vital Signs/Intake and Output Vital Signs (last 24 hours): Temp Pulse Resp BP Pulse Ox 98.7 F 76 20 144/83 96 02/06/17 04:05 02/06/17 04:05 02/06/17 04:05 02/06/17 04:05 02/06/17 04:05 Intake and Output: 02/06/17 02/06/17 06:59 18:59 Intake Total 540 Balance 540 - Medications Medications: Current Medications Acetaminophen (Tylenol 325mg Tab) 650 mg PO Q6 PRN PRN Reason: Pain, moderate (4-7) Last Admin: 02/05/17 07:43 Dose: 650 mg Enoxaparin Sodium (Lovenox) 40 mg SC DAILY [facility] Last Admin: 02/06/17 09:18 Dose: 40 mg Famotidine (Pepcid) 20 mg IVP DAILY [facility] Last Admin: 02/06/17 09:18 Dose: 20 mg Levetiracetam 500 mg/ Sodium (Chloride) 105 mls @ 420 mls/hr IVPB Q12H [facility] Last Admin: 02/06/17 04:51 Dose: 420 mls/hr Lorazepam (Ativan) 1 mg IVP Q4H PRN PRN Reason: Seizure activity Ondansetron HCl (Zofran Inj) 4 mg IVP Q4 PRN PRN Reason: Nausea/Vomiting Last Admin: 02/02/17 11:31 Dose: 4 mg Rosuvastatin Calcium (Crestor) 5 mg PO HS [facility] Last Admin: 02/05/17 22:23 Dose: 5 mg - Labs Labs: 02/04/17 07:24 02/04/17 07:24 PT 11.5 SECONDS (9.7-12.2) 02/01/17 16:23 INR 1.0 02/01/17 16:23 APTT 29 SECONDS (21-34) 02/01/17 16:23
--- NOTE | 2017-02-06 19:40 | CON ---
HISTORY OF PRESENT ILLNESS: A 62-year-old woman admitted on 02/02/2017 with history of hypertension, who presented with right-sided weakness, appeared to have a seizure, focal right arm and leg, was able to recover some strength. The arm has essentially returned to normal. Leg is still mildly weak. She cannot walk. 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 I cannot determine from the MRI whether this is a meningioma or an intrinsic gliotic tumor. She does not speak [place] and I obtained a history from her son and I discussed her case with her son who is going to discuss this with her and her and get back to me. PHYSICAL EXAMINATION: GENERAL: She currently is awake, alert. HEENT: Her pupils are equal. Her EOM's are full. Face is symmetric. EXTREMITIES: She has good strength in the lower extremities except the right leg, which approximately is of 1- to 3+/5, distally is 4+/5. Reflexes are 2/4, no decreased sensation. I explained to the son that depending on the type of tumor, this is either grossly excisable or we will only be able to do a biopsy. There is a fairly high risk of either a temporary, long-term or permanent paralysis of the right arm or leg as a result of the surgery. I explained to him also that there is a possibility that she may not survive or she may develop a hemorrhage or stroke among other things. I explained that this is a fairly risky operation and no further treatment can be offered unless we obtain tissue. He is going to discuss this with both parents and he is going to call me back later to decide with their decision. It should be noted that at this point it would be impossible to consider doing surgery this week and any intervention would be necessary to wait till next week. Further followup in the medical record will be done after I speak to the son again. Isra Weiss MD
[2017-02-07] MEDS: levETIRAcetam 500 MG in Sodium Chloride 0.9% 100 ML IVPB SCH ×2 (05:17→17:03)
--- NOTE | 2017-02-07 09:51 | CP.PCM.PN ---
Addendum entered and electronically signed by Sandy Baig 02/07/17 14:52 : Rash was seen on bilateral flanks and abdomen - per son this started yesterday after being cleaned with wipes - 40 IVP Nicole-Medrol once Original Note: <Sandy Baig - Last Filed: 02/07/17 13:01> Subjective - Date & Time of Evaluation Date of Evaluation: 02/07/17 Time of Evaluation: 07:40 - Subjective Subjective: Medicine Progress Note: Patient was seen and examined at bedside in the AM. Patient denies shortness of breath, chest pain, palpitations, nausea or vomiting. Patient is tolerating diet. Patient is ambulating. Objective - Vital Signs/Intake and Output Vital Signs (last 24 hours): Temp Pulse Resp BP Pulse Ox 97.9 F 83 20 127/80 98 02/07/17 09:03 02/07/17 09:03 02/07/17 09:03 02/07/17 09:03 02/07/17 09:03 Intake and Output: 02/07/17 02/07/17 06:59 18:59 Intake Total 340 Balance 340 - Medications Medications: Current Medications Acetaminophen (Tylenol 325mg Tab) 650 mg PO Q6 PRN PRN Reason: Pain, moderate (4-7) Last Admin: 02/06/17 16:39 Dose: 650 mg Enoxaparin Sodium (Lovenox) 40 mg SC DAILY [facility] Last Admin: 02/06/17 09:18 Dose: 40 mg Famotidine (Pepcid) 20 mg IVP DAILY [facility] Last Admin: 02/06/17 09:18 Dose: 20 mg Levetiracetam 500 mg/ Sodium (Chloride) 105 mls @ 420 mls/hr IVPB Q12H [facility] Last Admin: 02/07/17 05:17 Dose: 420 mls/hr Lorazepam (Ativan) 1 mg IVP Q4H PRN PRN Reason: Seizure activity Ondansetron HCl (Zofran Inj) 4 mg IVP Q4 PRN PRN Reason: Nausea/Vomiting Last Admin: 02/02/17 11:31 Dose: 4 mg Rosuvastatin Calcium (Crestor) 5 mg PO HS [facility] Last Admin: 02/06/17 21:22 Dose: 5 mg - Labs Labs: 02/04/17 07:24 02/04/17 07:24 PT 11.5 SECONDS (9.7-12.2) 02/01/17 16:23 INR 1.0 02/01/17 16:23 APTT 29 SECONDS (21-34) 02/01/17 16:23 - Constitutional Appears: No Acute Distress - Head Exam Head Exam: ATRAUMATIC, NORMAL INSPECTION, NORMOCEPHALIC - Eye Exam Eye Exam: EOMI, Normal appearance, PERRL Pupil Exam: NORMAL ACCOMODATION - ENT Exam ENT Exam: Mucous Membranes Moist - Respiratory Exam Respiratory Exam: Clear to Ausculation Bilateral, NORMAL BREATHING PATTERN - Cardiovascular Exam Cardiovascular Exam: REGULAR RHYTHM, RRR, +S1, +S2 - GI/Abdominal Exam GI & Abdominal Exam: Soft, Normal Bowel Sounds. absent: Tenderness - Extremities Exam Extremities Exam: Full ROM. 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 Iverson) * CT C/A/P: No mailg * Keppra 500mg IV Q 12hours * Ativan 1mg IVP Q 4 H PRN seizure activity * F/U Breast US/Mammo Prophylactic Measures * Lovenox 40mg SC daily * Ativan 1mg IVQ 4h PRN seizure activity * Aspiration precautions * Seizure precautions * Medical decision maker: there is no official healthy proxy; per son Maldonado, they will make decision-making for mother together. Her sister Noemy Albarran left her phone number [phone]. Disposition: Spoke with case management regarding wether the patient can get TCU placement. They are trying but may be difficult because of her lack of insurance. Case Discussed with Dr. Tonie Baig PGY-1 <Abel Schilling - Last Filed: 02/07/17 16:36> Objective - Vital Signs/Intake and Output Vital Signs (last 24 hours): Temp Pulse Resp BP Pulse Ox 99 F 78 20 141/78 95 02/07/17 16:29 02/07/17 16:29 02/07/17 16:29 02/07/17 16:29 02/07/17 16:29 Intake and Output: 02/07/17 02/07/17 06:59 18:59 Intake Total 340 160 Balance 340 160 - Medications Medications: Current Medications Acetaminophen (Tylenol 325mg Tab) 650 mg PO Q6 PRN PRN Reason: Pain, moderate (4-7) Last Admin: 02/07/17 16:14 Dose: 650 mg Enoxaparin Sodium (Lovenox) 40 mg SC DAILY [facility] Last Admin: 02/07/17 10:09 Dose: 40 mg Famotidine (Pepcid) 20 mg IVP DAILY [facility] Last Admin: 02/07/17 10:09 Dose: 20 mg Levetiracetam 500 mg/ Sodium (Chloride) 105 mls @ 420 mls/hr IVPB Q12H [facility] Last Admin: 02/07/17 05:17 Dose: 420 mls/hr Lorazepam (Ativan) 1 mg IVP Q4H PRN PRN Reason: Seizure activity Ondansetron HCl (Zofran Inj) 4 mg IVP Q4 PRN PRN Reason: Nausea/Vomiting Last Admin: 02/02/17 11:31 Dose: 4 mg Rosuvastatin Calcium (Crestor) 5 mg PO HS [facility] Last Admin: 02/06/17 21:22 Dose: 5 mg - Labs Labs: 02/04/17 07:24 02/04/17 07:24 PT 11.5 SECONDS (9.7-12.2) 02/01/17 16:23 INR 1.0 02/01/17 16:23 APTT 29 SECONDS (21-34) 02/01/17 16:23 Attending/Attestation - Attestation I have personally seen and examined this patient.: Yes I have fully participated in the care of the patient.: Yes I have reviewed all pertinent clinical information, including history, physical exam and plan: Yes Notes (Text): Medical attending: Patient was seen and examined by me, agree with the above note by certified ophthalmic medical technician. Patient's family members were present as well, we'll discuss together as before. The patient is currently pending surgery this Friday at 7:30. Today the patient reported that she did have some slight headache, on physical exam she is able to move both her arms as hands. Nevertheless she still has this persistent right hand weakness when I saw her she had not yet had physical therapy during the day they report that she's eating okay Thank you very much, Abel Schilling
[2017-02-07] MEDS: Enoxaparin 40 mg Syringe SC SCH (10:09)
[2017-02-07] MEDS ORDERED: MethylPREDNISolone 40 mg Vial IVP ONE ×2 (15:00→16:08)
[2017-02-08] MEDS: levETIRAcetam 500 MG in Sodium Chloride 0.9% 100 ML IVPB SCH ×2 (04:54→17:13)
[2017-02-08 06:35] LABS: BASO % 0.4 % (0.0-2.0); LYMPH # 1.5 K/uL (1.0-4.3); LYMPH % 32.1 % (20.0-40.0); MEAN CELL VOLUME 88.7 fL (81.0-99.0); MEAN CORPUSCULAR HEMOGLOBIN 30.6 pg (27.0-31.0); MEAN CORPUSCULAR HGB CONC 34.5 g/dL (33.0-37.0); MEAN PLATELET VOLUME 7.9 fL (7.2-11.7); MONO # 0.3 K/uL (0.0-0.8); MONO % 6.3 % (0.0-10.0); RED CELL DISTRIBUTION WIDTH 13.4 % (11.5-14.5); WHITE BLOOD COUNT 4.5 K/uL (4.8-10.8)
[2017-02-08 07:26] LABS: ALB/GLOB RATIO 1.1 (1.0-2.1); ALKALINE PHOSPHATASE 47 U/L (38-126); ALT/SGPT 48 U/L (9-52); AST/SGOT 38 U/L (14-36); BILIRUBIN,TOTAL 0.5 mg/dL (0.2-1.3); BLOOD UREA NITROGEN 12 mg/dL (7-17); CALCIUM 9.9 mg/dl (8.6-10.4); CARBON DIOXIDE 26 mmol/L (22-30); CHLORIDE 102 mmol/L (98-107); GFR AFRICAN-AMERICAN > 60; GLUCOSE,RANDOM 111 mg/dL (65-105); PHOSPHOROUS 5.8 mg/dL (2.5-4.5); POTASSIUM 4.4 mmol/L (3.6-5.2); SODIUM 143 mmol/L (132-148); TOTAL PROTEIN 7.3 g/dL (6.3-8.3)
--- NOTE | 2017-02-08 08:21 | CP.PCM.PN ---
<Caitlin Mcgill - Last Filed: 02/08/17 08:17> Subjective - Date & Time of Evaluation Date of Evaluation: 02/08/17 Time of Evaluation: 08:17 - Subjective Subjective: Patient was seen and examined at bedside. Patient doing well with no new complaints at this time. Patient denies shortness of breath, chest pain, palpitations, nausea or vomiting. Patient is tolerating diet. Patient is ambulating. Objective - Vital Signs/Intake and Output Vital Signs (last 24 hours): Temp Pulse Resp BP Pulse Ox 97.9 F 60 20 128/77 97 02/08/17 04:05 02/08/17 04:05 02/08/17 04:05 02/08/17 04:05 02/08/17 04:05 Intake and Output: 02/08/17 02/08/17 06:59 18:59 Intake Total 340 Balance 340 - Medications Medications: Current Medications Acetaminophen (Tylenol 325mg Tab) 650 mg PO Q6 PRN PRN Reason: Pain, moderate (4-7) Last Admin: 02/07/17 16:14 Dose: 650 mg Enoxaparin Sodium (Lovenox) 40 mg SC DAILY [facility] Stop: 02/09/17 10:00 Last Admin: 02/07/17 10:09 Dose: 40 mg Famotidine (Pepcid) 20 mg IVP DAILY [facility] Last Admin: 02/07/17 10:09 Dose: 20 mg Levetiracetam 500 mg/ Sodium (Chloride) 105 mls @ 420 mls/hr IVPB Q12H [facility] Last Admin: 02/08/17 04:54 Dose: 420 mls/hr Lorazepam (Ativan) 1 mg IVP Q4H PRN PRN Reason: Seizure activity Ondansetron HCl (Zofran Inj) 4 mg IVP Q4 PRN PRN Reason: Nausea/Vomiting Last Admin: 02/02/17 11:31 Dose: 4 mg Rosuvastatin Calcium (Crestor) 5 mg PO HS [facility] Last Admin: 02/07/17 21:56 Dose: 5 mg - Labs Labs: 02/08/17 06:18 02/08/17 06:18 PT 11.5 SECONDS (9.7-12.2) 02/01/17 16:23 INR 1.0 02/01/17 16:23 APTT 29 SECONDS (21-34) 02/01/17 16:23 - Constitutional Appears: Non-toxic, No Acute Distress - Head Exam Head Exam: NORMAL INSPECTION - Eye Exam Eye Exam: EOMI - ENT Exam ENT Exam: Mucous Membranes Moist - Respiratory Exam Respiratory Exam: Clear to Ausculation Bilateral, NORMAL BREATHING PATTERN - Cardiovascular Exam Cardiovascular Exam: RRR, +S1, +S2 - GI/Abdominal Exam GI & Abdominal Exam: Soft, Normal Bowel Sounds. absent: Distended, Tenderness - Extremities Exam Extremities Exam: Normal Inspection. 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 Iverson) * CT C/A/P: No mailg * Keppra 500mg IV Q 12hours * Ativan 1mg IVP Q 4 H PRN seizure activity * F/U Breast US/Mammo Prophylactic Measures * Lovenox 40mg SC daily * Ativan 1mg IVQ 4h PRN seizure activity * Aspiration precautions * Seizure precautions * Medical decision maker: there is no official healthy proxy; per son Maldonado, they will make decision-making for mother together. Her sister Noemy Albarran left her phone number [phone]. Disposition: May be difficult to get TCU placement per case management because of her lack of insurance. <Abel Schilling H - Last Filed: 02/08/17 08:30> Objective - Vital Signs/Intake and Output Vital Signs (last 24 hours): Temp Pulse Resp BP Pulse Ox 98 F 68 20 145/86 98 02/08/17 07:00 02/08/17 07:00 02/08/17 07:00 02/08/17 07:00 02/08/17 07:00 Intake and Output: 02/08/17 02/08/17 06:59 18:59 Intake Total 340 Balance 340 - Medications Medications: Current Medications Acetaminophen (Tylenol 325mg Tab) 650 mg PO Q6 PRN PRN Reason: Pain, moderate (4-7) Last Admin: 02/07/17 16:14 Dose: 650 mg Enoxaparin Sodium (Lovenox) 40 mg SC DAILY [facility] Stop: 02/09/17 10:00 Last Admin: 02/07/17 10:09 Dose: 40 mg Famotidine (Pepcid) 20 mg IVP DAILY [facility] Last Admin: 02/07/17 10:09 Dose: 20 mg Levetiracetam 500 mg/ Sodium (Chloride) 105 mls @ 420 mls/hr IVPB Q12H [facility] Last Admin: 02/08/17 04:54 Dose: 420 mls/hr Lorazepam (Ativan) 1 mg IVP Q4H PRN PRN Reason: Seizure activity Ondansetron HCl (Zofran Inj) 4 mg IVP Q4 PRN PRN Reason: Nausea/Vomiting Last Admin: 02/02/17 11:31 Dose: 4 mg Rosuvastatin Calcium (Crestor) 5 mg PO HS [facility] Last Admin: 02/07/17 21:56 Dose: 5 mg - Labs Labs: 02/08/17 06:18 02/08/17 06:18 PT 11.5 SECONDS (9.7-12.2) 02/01/17 16:23 INR 1.0 02/01/17 16:23 APTT 29 SECONDS (21-34) 02/01/17 16:23 Attending/Attestation - Attestation I have personally seen and examined this patient.: Yes I have fully participated in the care of the patient.: Yes I have reviewed all pertinent clinical information, including history, physical exam and plan: Yes Notes (Text): Medical Attending: Patient was seen and examined by me at 8:20 AM. Agree with the above note by the biomedical engineering internship. The patient was eating breakfast on her own when I came and saw and examined. As documented previously she continues to have right hand and arm weakness. Also weakness with her left lower extremity on inspection. She was not in any acute distress Pending surgery this Friday. thank you Abel Schilling
[2017-02-08] MEDS: Enoxaparin 40 mg Syringe SC SCH (10:25)
[2017-02-08] MEDS ORDERED: Hydrocortisone 0.5% Cream(30 gm) TOP PRN (21:00)
--- NOTE | 2017-02-09 05:21 | CP.PCM.PN ---
<Caitlin Mcgill - Last Filed: 02/09/17 05:19> Subjective - Date & Time of Evaluation Date of Evaluation: 02/09/17 Time of Evaluation: 05:19 - Subjective Subjective: Patient was seen and examined at bedside. Patient doing well with no new complaints at this time. Patient still having pruritic rash of left arm. Patient denies shortness of breath, chest pain, palpitations, nausea or vomiting. Patient is tolerating diet. Patient is ambulating. Objective - Vital Signs/Intake and Output Vital Signs (last 24 hours): Temp Pulse Resp BP Pulse Ox 98.3 F 70 20 132/78 99 02/08/17 23:30 02/08/17 23:30 02/08/17 23:30 02/08/17 23:30 02/08/17 23:30 Intake and Output: 02/08/17 02/09/17 18:59 06:59 Intake Total 210 340 Balance 210 340 - Medications Medications: Current Medications Acetaminophen (Tylenol 325mg Tab) 650 mg PO Q6 PRN PRN Reason: Pain, moderate (4-7) Last Admin: 02/07/17 16:14 Dose: 650 mg Famotidine (Pepcid) 20 mg IVP DAILY [facility] Last Admin: 02/08/17 10:25 Dose: 20 mg Hydrocortisone (Cortizone 0.5%) 0 ea TOP BID PRN PRN Reason: Rash Last Admin: 02/08/17 21:26 Dose: 1 applic Levetiracetam 500 mg/ Sodium (Chloride) 105 mls @ 420 mls/hr IVPB Q12H [facility] Last Admin: 02/08/17 17:13 Dose: 420 mls/hr Lorazepam (Ativan) 1 mg IVP Q4H PRN PRN Reason: Seizure activity Ondansetron HCl (Zofran Inj) 4 mg IVP Q4 PRN PRN Reason: Nausea/Vomiting Last Admin: 02/02/17 11:31 Dose: 4 mg Rosuvastatin Calcium (Crestor) 5 mg PO HS [facility] Last Admin: 02/08/17 21:26 Dose: 5 mg - Labs Labs: 02/08/17 06:18 02/08/17 06:18 PT 11.5 SECONDS (9.7-12.2) 02/01/17 16:23 INR 1.0 02/01/17 16:23 APTT 29 SECONDS (21-34) 02/01/17 16:23 - Constitutional Appears: Non-toxic, No Acute Distress - Head Exam Head Exam: ATRAUMATIC, NORMAL INSPECTION, NORMOCEPHALIC - Eye Exam Eye Exam: EOMI - ENT Exam ENT Exam: Mucous Membranes Moist - Respiratory Exam Respiratory Exam: Clear to Ausculation Bilateral, NORMAL BREATHING PATTERN - Cardiovascular Exam Cardiovascular Exam: REGULAR RHYTHM, +S1, +S2 - GI/Abdominal Exam GI & Abdominal Exam: Soft, Normal Bowel Sounds. 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 Iverson) * CT C/A/P: No mailg * Keppra 500mg IV Q 12hours * Ativan 1mg IVP Q 4 H PRN seizure activity * F/U Breast US/Mammo Rash of left arm * Hydrocortisone cream 0.5% PRN * Gave one time dose of Benadryl 25 mg 02/09 Prophylactic Measures * Lovenox 40mg SC daily * Ativan 1mg IVQ 4h PRN seizure activity * Aspiration precautions * Seizure precautions * Medical decision maker: there is no official healthy proxy; per son Maldonado, they will make decision-making for mother together. Her sister Noemy Albarran left her phone number [phone]. <Abel Schilling H - Last Filed: 02/09/17 08:34> Objective - Vital Signs/Intake and Output Vital Signs (last 24 hours): Temp Pulse Resp BP Pulse Ox 98.3 F 70 20 132/78 99 02/08/17 23:30 02/08/17 23:30 02/08/17 23:30 02/08/17 23:30 02/08/17 23:30 Intake and Output: 02/09/17 02/09/17 06:59 18:59 Intake Total 340 Balance 340 - Medications Medications: Current Medications Acetaminophen (Tylenol 325mg Tab) 650 mg PO Q6 PRN PRN Reason: Pain, moderate (4-7) Last Admin: 02/07/17 16:14 Dose: 650 mg Famotidine (Pepcid) 20 mg IVP DAILY [facility] Last Admin: 02/08/17 10:25 Dose: 20 mg Hydrocortisone (Cortizone 0.5%) 0 ea TOP BID PRN PRN Reason: Rash Last Admin: 02/08/17 21:26 Dose: 1 applic Levetiracetam 500 mg/ Sodium (Chloride) 105 mls @ 420 mls/hr IVPB Q12H [facility] Last Admin: 02/09/17 05:35 Dose: 420 mls/hr Lorazepam (Ativan) 1 mg IVP Q4H PRN PRN Reason: Seizure activity Ondansetron HCl (Zofran Inj) 4 mg IVP Q4 PRN PRN Reason: Nausea/Vomiting Last Admin: 02/02/17 11:31 Dose: 4 mg Rosuvastatin Calcium (Crestor) 5 mg PO HS [facility] Last Admin: 02/08/17 21:26 Dose: 5 mg - Labs Labs: 02/09/17 07:16 02/09/17 07:16 PT 11.5 SECONDS (9.7-12.2) 02/01/17 16:23 INR 1.0 02/01/17 16:23 APTT 29 SECONDS (21-34) 02/01/17 16:23 Attending/Attestation - Attestation I have personally seen and examined this patient.: Yes I have fully participated in the care of the patient.: Yes I have reviewed all pertinent clinical information, including history, physical exam and plan: Yes Notes (Text): 02/09/17 08:28 Medical Attending: Patient was seen and examined by me. Agree with the above note by the resident. The patient when I saw her still had the rash on the fore arm surface as well as on the top of her chest. She indicated it was very itchy to her. Overnight was given benadryl. Will do a one time order of solumedrol 40 IVP. Also in preparation of surgery tomorrow will make NPO after midnight and also chek EKG, Portable films, type and screen thank you Abel Schilling
[2017-02-09] MEDS: levETIRAcetam 500 MG in Sodium Chloride 0.9% 100 ML IVPB SCH ×2 (05:35→18:00)
[2017-02-09 07:23] LABS: BASO % 0.6 % (0.0-2.0); EOS # 0.2 K/uL (0.0-0.7); EOS % 4.1 % (0.0-4.0); HEMATOCRIT 43.1 % (34.0-47.0); LYMPH # 2.4 K/uL (1.0-4.3); LYMPH % 40.2 % (20.0-40.0); MEAN CELL VOLUME 89.7 fL (81.0-99.0); MEAN CORPUSCULAR HEMOGLOBIN 30.4 pg (27.0-31.0); MEAN CORPUSCULAR HGB CONC 33.9 g/dL (33.0-37.0); MEAN PLATELET VOLUME 8.1 fL (7.2-11.7); MONO # 0.8 K/uL (0.0-0.8); MONO % 14.1 % (0.0-10.0); NRBC % 0.1 % (0.0-2.0); RED CELL DISTRIBUTION WIDTH 13.1 % (11.5-14.5); WHITE BLOOD COUNT 5.9 K/uL (4.8-10.8)
[2017-02-09 08:00] LABS: ALB/GLOB RATIO 1.2 (1.0-2.1); ALKALINE PHOSPHATASE 40 U/L (38-126); ALT/SGPT 59 U/L (9-52); AST/SGOT 58 U/L (14-36); BILIRUBIN,TOTAL 0.6 mg/dL (0.2-1.3); BLOOD UREA NITROGEN 17 mg/dL (7-17); CALCIUM 9.4 mg/dl (8.6-10.4); CARBON DIOXIDE 27 mmol/L (22-30); CHLORIDE 103 mmol/L (98-107); GFR AFRICAN-AMERICAN > 60; GLUCOSE,RANDOM 84 mg/dL (65-105); PHOSPHOROUS 4.1 mg/dL (2.5-4.5); SODIUM 143 mmol/L (132-148); TOTAL PROTEIN 6.7 g/dL (6.3-8.3)
[2017-02-09] MEDS ORDERED: MethylPREDNISolone 40 mg Vial IVP STA (08:34)
--- NOTE | 2017-02-09 11:13 | CARD ---
APPROVED REPORT EXAM: Two-dimensional and M-mode echocardiogram with Doppler and color Doppler. Other Information Quality : GoodRhythm : NSR INDICATION CVA/TIA Dizziness and Vertigo RISK FACTORS Hypertension 2D DIMENSIONS IVSd0.9 (0.7-1.1cm)LVDd3.3 (3.9-5.9cm) PWd0.6 (0.7-1.1cm)LVDs2.1 (2.5-4.0cm) FS (%) 36.6 %LVEF (%)67.6 (>50%) M-Mode DIMENSIONS Left Atrium (MM)2.65 (2.5-4.0cm)IVSd0.96 (0.7-1.1cm) Aortic Root2.68 (2.2-3.7cm)LVDd3.81 (4.0-5.6cm) Aortic Cusp Exc.1.89 (1.5-2.0cm)PWd0.85 (0.7-1.1cm) FS (%) 44 %LVDs2.12 (2.0-3.8cm) LVEF (%)76 (>50%) Mitral Valve MV E Rihzqbpt93.8cm/sMV A Ravbszlf98.9cm/sE/A ratio1.1 TDI E/Lateral E'0.0E/Medial E'0.0 Tricuspid Valve TR Peak [id number]/sTR Peak [id number] <Conclusion> Left ventricle: thickness: normal; size: normal; overall ejection fraction: 65%: diastolic filling pressures: normal Mitral valve: annulus: normal: leaflets: normal: excursion: normal; no significant trans-mitral gradient: no significant incompetence: left atrium: normal Aortic valve: leaflets: normal: excursion: normal; no significant trans-aortic gradient: No significant incompetence: aortic root: normal Right sided Structures: Pulmonary valve: normal; no significant incompetence; Tricuspid valve: normal; no significant incompetence: Intra-cardiac hemodynamics: pulmonary systolic pressures: normal; central venous pressures: normal No pericardial effusion
--- NOTE | 2017-02-09 11:58 | RAD ---
HISTORY: Surgery tommorow, pre opt COMPARISON: 02/01/2017 FINDINGS: LUNGS: No active pulmonary disease. PLEURA: No significant pleural effusion identified, no pneumothorax apparent. CARDIOVASCULAR: Normal. OSSEOUS STRUCTURES: No significant abnormalities. VISUALIZED UPPER ABDOMEN: Normal. OTHER FINDINGS: None. IMPRESSION: No active disease.
[2017-02-09] MEDS ORDERED: DiphenhydrAMINE 50 mg/ml Inj IVP PRN (16:57)
[2017-02-10] MEDS: levETIRAcetam 500 MG in Sodium Chloride 0.9% 100 ML IVPB SCH ×2 (05:10→16:00)
[2017-02-10 05:39] LABS: BASO # 0.1 K/uL (0.0-0.2); BASO % 0.6 % (0.0-2.0); EOS % 0.5 % (0.0-4.0); HEMATOCRIT 43.4 % (34.0-47.0); LYMPH % 31.2 % (20.0-40.0); MEAN CELL VOLUME 89.8 fL (81.0-99.0); MEAN CORPUSCULAR HEMOGLOBIN 30.3 pg (27.0-31.0); MEAN CORPUSCULAR HGB CONC 33.7 g/dL (33.0-37.0); MEAN PLATELET VOLUME 8.2 fL (7.2-11.7); RED CELL DISTRIBUTION WIDTH 13.3 % (11.5-14.5); WHITE BLOOD COUNT 9.6 K/uL (4.8-10.8)
[2017-02-10 05:53] LABS: ALB/GLOB RATIO 1.3 (1.0-2.1); ALKALINE PHOSPHATASE 40 U/L (38-126); ALT/SGPT 62 U/L (9-52); AST/SGOT 38 U/L (14-36); BILIRUBIN,TOTAL 0.5 mg/dL (0.2-1.3); BLOOD UREA NITROGEN 16 mg/dL (7-17); CALCIUM 9.7 mg/dl (8.6-10.4); CARBON DIOXIDE 27 mmol/L (22-30); CHLORIDE 101 mmol/L (98-107); GFR AFRICAN-AMERICAN > 60; GLUCOSE,RANDOM 87 mg/dL (65-105); MAGNESIUM 2.1 mg/dL (1.6-2.3); PHOSPHOROUS 4.2 mg/dL (2.5-4.5); POTASSIUM 3.9 mmol/L (3.6-5.2); SODIUM 145 mmol/L (132-148); TOTAL PROTEIN 7.1 g/dL (6.3-8.3)
[2017-02-10] MEDS ORDERED: Propofol 10 mg/ml 1,000 MG/100 ML VIAL ONE (07:26)
[2017-02-10] MEDS ORDERED: Rocuronium 10 mg/ml (5 ml) ONE ×2 (07:27→07:39)
[2017-02-10] MEDS ORDERED: Bacitracin 50,000 UNIT in Sodium Chloride 0.9% Irrig 1,000 ML IR SCH (07:27)
[2017-02-10] MEDS ORDERED: Propofol 10 mg/ml Inj (20 ML) ONE ×2 (07:28→08:43)
[2017-02-10] MEDS ORDERED: Midazolam 2 MG/2 ML VIAL ONE (07:28)
[2017-02-10] MEDS ORDERED: ceFAZolin IV 1 gm in Dextrose 1 GM/50 ML BAG IVPB ONE (07:41)
[2017-02-10] MEDS ORDERED: Thrombin Topical 5,000 IU Spray Kit ONE (07:41)
[2017-02-10] MEDS ORDERED: Absorbable Gelatin Sponge Size 12-7 ONE (07:41)
[2017-02-10] MEDS ORDERED: Absorbable Gelatin Sponge Size 100 ONE (07:42)
[2017-02-10] MEDS ORDERED: Sodium Chloride 0.9% 1,000 ML IV ONE (08:00)
[2017-02-10] MEDS ORDERED: Sodium Chloride 0.9% 500 ML IV ONE ×2 (08:00→09:00)
[2017-02-10] MEDS ORDERED: Bacitracin Ointment 30 GM TUBE ONE (08:41)
[2017-02-10] MEDS ORDERED: MANNITOL IV ONE ×2 (08:43→09:15)
[2017-02-10] MEDS ORDERED: Lidocaine 2% w Epi 1:100,000 Inj IJ ONE (09:01)
[2017-02-10] MEDS ORDERED: Lidocaine 2% Inj (20ml) ONE (09:01)
[2017-02-10] MEDS ORDERED: Bupivacaine HCl 0.5% PF (10 ml) Inj ONE (09:01)
--- NOTE | 2017-02-10 09:37 | CP.PCM.PN ---
<Sandy Baig - Last Filed: 02/10/17 18:12> Subjective - Date & Time of Evaluation Date of Evaluation: 02/10/17 Time of Evaluation: 07:00 - Subjective Subjective: Medicine Progress Note: Patient was seen and examined at bedside in the AM. Patient denies chest pain, shortness of breath or difficulty breathing. Patient states she has not had any food since midnight the night before as she is going for her surgery today. Patient states she does feel a bit nervous but it feeling well for her surgery. Objective - Vital Signs/Intake and Output Vital Signs (last 24 hours): Temp Pulse Resp BP Pulse Ox 97.7 F 61 20 129/74 98 02/10/17 05:46 02/10/17 05:46 02/10/17 05:46 02/10/17 05:46 02/10/17 05:46 Intake and Output: 02/10/17 02/10/17 06:59 18:59 Intake Total 340 Balance 340 - Medications Medications: Current Medications Acetaminophen (Tylenol 325mg Tab) 650 mg PO Q6 PRN PRN Reason: Pain, moderate (4-7) Last Admin: 02/07/17 16:14 Dose: 650 mg Diphenhydramine HCl (Benadryl) 12.5 mg IVP Q12 PRN PRN Reason: Allergy symptoms Last Admin: 02/09/17 17:42 Dose: 12.5 mg Famotidine (Pepcid) 20 mg IVP DAILY [facility] Last Admin: 02/09/17 09:05 Dose: 20 mg Levetiracetam 500 mg/ Sodium (Chloride) 105 mls @ 420 mls/hr IVPB Q12H [facility] Last Admin: 02/10/17 05:10 Dose: 420 mls/hr Ondansetron HCl (Zofran Inj) 4 mg IVP Q4 PRN PRN Reason: Nausea/Vomiting Last Admin: 02/02/17 11:31 Dose: 4 mg Rosuvastatin Calcium (Crestor) 5 mg PO HS [facility] Last Admin: 02/09/17 21:58 Dose: 5 mg - Labs Labs: 02/10/17 05:37 02/10/17 05:37 PT 11.5 SECONDS (9.7-12.2) 02/01/17 16:23 INR 1.0 02/01/17 16:23 APTT 28 SECONDS (21-34) 02/09/17 11:29 - Constitutional Appears: No Acute Distress - Head Exam Head Exam: ATRAUMATIC, NORMAL INSPECTION, NORMOCEPHALIC - Eye Exam Eye Exam: EOMI, Normal appearance, PERRL Pupil Exam: NORMAL ACCOMODATION - ENT Exam ENT Exam: Mucous Membranes Moist - Respiratory Exam Respiratory Exam: Clear to Ausculation Bilateral, NORMAL BREATHING PATTERN - Cardiovascular Exam Cardiovascular Exam: REGULAR RHYTHM, RRR, +S1, +S2 - GI/Abdominal Exam GI & Abdominal Exam: Soft, Normal Bowel Sounds. 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 Iverson) * CT C/A/P: No mailg * Keppra 500mg IV Q 12hours * Ativan 1mg IVP Q 4 H PRN seizure activity 2.) Palpable breast mass F/U Breast US/Mammo 3.) Rash of left arm Hydrocortisone cream 0.5% PRN Gave one time dose of Benadryl 25 mg 02/09 4.) Prophylactic Measures Lovenox 40mg SC daily - on hold per neuro surgery Ativan 1mg IVQ 4h PRN seizure activity Aspiration precautions Seizure precautions * Medical decision maker: there is no official healthy proxy; per son Maldonado, they will make decision-making for mother together. Her sister Noemy Albarran left her phone number [phone]. <Bladimir Ring - Last Filed: 02/11/17 08:39> Objective - Vital Signs/Intake and Output Vital Signs (last 24 hours): Temp Pulse Resp BP Pulse Ox 98.5 F 93 H 18 157/93 H 96 02/11/17 04:00 02/11/17 06:10 02/11/17 06:10 02/11/17 06:01 02/11/17 06:10 Intake and Output: 02/11/17 02/11/17 06:59 18:59 Intake Total 1040 Output Total 1160 Balance -120 - Medications Medications: Current Medications Acetaminophen (Tylenol 325mg Tab) 650 mg PO Q6 PRN PRN Reason: Pain, moderate (4-7) Last Admin: 02/07/17 16:14 Dose: 650 mg Dexamethasone (Decadron Inj) 6 mg IVP Q6H [facility] Last Admin: 02/11/17 05:08 Dose: 6 mg Diphenhydramine HCl (Benadryl) 12.5 mg IVP Q12 PRN PRN Reason: Allergy symptoms Last Admin: 02/09/17 17:42 Dose: 12.5 mg Famotidine (Pepcid) 20 mg IVP DAILY [facility] Last Admin: 02/09/17 09:05 Dose: 20 mg Levetiracetam 500 mg/ Sodium (Chloride) 105 mls @ 420 mls/hr IVPB Q12H [facility] Last Admin: 02/11/17 05:08 Dose: 420 mls/hr Nicardipine HCl 25 mg/ Sodium (Chloride) 250 mls @ 50 mls/hr IV .Q5H [facility]; 5 MG/ HR PRN Reason: Protocol Last Admin: 02/11/17 05:45 Dose: Not Given Potassium Chloride/Dextrose/Sod Cl (Potassium Chl 20 Meq In D5-1/2ns) 1,000 mls @ 80 mls/hr IV .[id number] [facility] Last Admin: 02/11/17 02:38 Dose: 80 mls/hr Ondansetron HCl (Zofran Inj) 4 mg IVP Q4 PRN PRN Reason: Nausea/Vomiting Last Admin: 02/02/17 11:31 Dose: 4 mg - Labs Labs: 02/11/17 06:14 02/11/17 06:14 PT 11.5 SECONDS (9.7-12.2) 02/01/17 16:23 INR 1.0 02/01/17 16:23 APTT 28 SECONDS (21-34) 02/09/17 11:29 Attending/Attestation - Attestation I have personally seen and examined this patient.: Yes I have fully participated in the care of the patient.: Yes I have reviewed all pertinent clinical information, including history, physical exam and plan: Yes Notes (Text): 02/11/17 08:38 Patient was seen and examined at bedside currently in ICU. Patient is status postoperative resection of the brain mass Continue management as per ICU team. Postop management as per ICU and neurosurgery. I discussed the plan of care with the resident and agree with the assessment and plan documented.
[2017-02-10] MEDS ORDERED: Neostigmine Methylsulfate 3mg/3ml Syringe IV ONE (10:02)
[2017-02-10] MEDS ORDERED: Lactated Ringer's 1,000 ML IV ONE (10:15)
[2017-02-10] MEDS ORDERED: Dexamethasone 6 MG in Sodium Chloride 0.9% 50 ML IV SCH (10:45)
[2017-02-10] MEDS ORDERED: Dexamethasone 4 mg/1 ml IVP ONE (10:45)
[2017-02-10] MEDS ORDERED: Sodium Chloride 0.9% 1,000 ML IV SCH (11:00)
[2017-02-10] MEDS ORDERED: levETIRAcetam 500 MG in Sodium Chloride 0.9% 100 ML IVPB STA (11:01)
[2017-02-10] MEDS: Potassium Ch 20mEq in D5-1/2NS 1,000 ML IV SCH (13:30)
[2017-02-10] MEDS: niCARdipine IV 25 MG in Sodium Chloride 0.9% 240 ML IV SCH ×3 (16:03→22:17)
[2017-02-10] MEDS: Dexamethasone 4 mg/1 ml IVP SCH ×2 (16:08→22:54)
--- NOTE | 2017-02-10 18:57 | CP.CCUPN ---
<Wilman Ybarra - Last Filed: 02/10/17 18:52> CCU Subjective - Physician Review Subjective (Free Text): Patient seen and examined at bedside with son present. Per son, patient awake, responds to commands but non-verbal since her neurosurgery this AM. ROS unobtainable at this time. 02/10/17 18:52 CCU Objective - Vital Signs / Intake & Output Vital Signs (Last 4 hours): Vital Signs Temp Pulse Resp BP Pulse Ox 02/10/17 18:20 92 H 18 99 02/10/17 18:10 77 16 99 02/10/17 18:01 75 15 153/81 H 99 02/10/17 17:01 75 15 156/86 H 100 02/10/17 16:01 91 H 15 150/84 100 02/10/17 16:00 98.2 F 100 02/10/17 15:01 84 17 147/85 100 02/10/17 14:54 85 18 153/87 H Intake and Output (Last 8hrs): Intake & Output 02/10/17 02/10/17 02/10/17 06:59 14:59 22:59 Intake Total 285 420 Output Total 2950 600 Balance -2665 -180 Intake: IV 105 Intake, IV Amount 180 420 Right Forearm 100 Right Hand 180 320 Output: Urine 2950 600 Urethral (Nugent) 300 600 - Physical Exam Head: Positive for: Other (s/p neurosurgery in occiptal lobe, dressing c/d/i) Pupils: Positive for: PERRL Extroacular Muscles: Positive for: EOMI Respiratory/Chest: Positive for: Clear to Auscultation Cardiovascular: Positive for: Regular Rate and Rhythm, Normal S1, S2 Abdomen: Positive for: Normal Bowel Sounds. Negative for: Distention Upper Extremity: Negative for: Edema Lower Extremity: Positive for: Other (Left Upper Extremity: 5, Right Upper Extremity: 3, Left Lower Extremity: 5, Right Lower Extremity: 3). Negative for : Edema - Medications Active Medications: Active Medications Generic Name Dose Route Start Last Admin Trade Name Freq PRN Reason Stop Dose Admin Acetaminophen 650 mg 02/02/17 13:24 02/07/17 16:14 Tylenol 325mg Tab PO 650 mg Q6 PRN Administration Pain, moderate (4-7) Dexamethasone 6 mg 02/10/17 10:45 02/10/17 16:08 Decadron Inj IVP 6 mg Q6H VIKASH Administration Diphenhydramine HCl 12.5 mg 02/09/17 16:57 02/09/17 17:42 Benadryl IVP 12.5 mg Q12 PRN Administration Allergy symptoms Famotidine 20 mg 02/02/17 10:00 02/09/17 09:05 Pepcid IVP 20 mg DAILY VIKASH Administration Levetiracetam 500 mg/ Sodium 105 mls @ 420 mls/hr 02/02/17 05:00 02/10/17 16: 00 Chloride IVPB 420 mls/hr Q12H VIKASH Administration Nicardipine HCl 25 mg/ Sodium 250 mls @ 50 mls/hr 02/10/17 09:45 02/10/17 16: 04 Chloride IV Not Given .Q5H VIKASH Protocol 5 MG/HR Potassium Chloride/Dextrose/Sod Cl 1,000 mls @ 80 mls/hr 02/10/17 10:45 02/10 13:30 Potassium Chl 20 Meq In D5-1/2ns IV 80 mls/hr .[id number] VIKASH Administration Ondansetron HCl 4 mg 02/02/17 11:18 02/02/17 11:31 Zofran Inj IVP 4 mg Q4 PRN Administration Nausea/Vomiting - Patient Studies Lab Studies: Lab Studies 02/10/17 02/10/17 02/10/17 Range/Units 17:49 06:36 05:37 WBC (4.8-10.8) K/uL RBC (3.80-5.20) Mil/uL Hgb (11.0-16.0) g/dL Hct (34.0-47.0) % MCV (81.0-99.0) fL MCH (27.0-31.0) pg MCHC (33.0-37.0) g/dL RDW (11.5-14.5) % Plt Count (130-400) K/uL MPV (7.2-11.7) fL Neut % (Auto) (50.0-75.0) % Lymph % (Auto) (20.0-40.0) % Young % (Auto) (0.0-10.0) % Eos % (Auto) (0.0-4.0) % Baso % (Auto) (0.0-2.0) % Neut # (1.8-7.0) K/uL Lymph # (1.0-4.3) K/uL Young # (0.0-0.8) K/uL Eos # (0.0-0.7) K/uL Baso # (0.0-0.2) K/uL Sodium 145 (132-148) mmol/L Potassium 3.9 (3.6-5.2) mmol/L Chloride 101 (98-107) mmol/L Carbon Dioxide 27 (22-30) mmol/L Anion Gap 20 (10-20) BUN 16 (7-17) mg/dL Creatinine 0.8 (0.7-1.2) MG/DL Est GFR ( Amer) > 60 Est GFR (Non-Af Amer) > 60 POC Glucose (mg/dL) 178 H 79 (65-110) mg/dL Random Glucose 87 (65-105) mg/dL Calcium 9.7 (8.6-10.4) mg/dl Phosphorus 4.2 (2.5-4.5) mg/dL Magnesium 2.1 (1.6-2.3) mg/dL Total Bilirubin 0.5 (0.2-1.3) mg/dL AST 38 H D (14-36) U/L ALT 62 H (9-52) U/L Alkaline Phosphatase 40 (38-126) U/L Total Protein 7.1 (6.3-8.3) g/dL Albumin 4.0 (3.5-5.0) g/dL Globulin 3.1 (2.2-3.9) gm/dL Albumin/Globulin Ratio 1.3 (1.0-2.1) Blood Type Antibody Screen 02/10/17 02/09/17 02/09/17 Range/Units 05:37 22:05 11:27 WBC 9.6 D (4.8-10.8) K/uL RBC 4.83 (3.80-5.20) Mil/uL Hgb 14.6 (11.0-16.0) g/dL Hct 43.4 (34.0-47.0) % MCV 89.8 (81.0-99.0) fL MCH 30.3 (27.0-31.0) pg MCHC 33.7 (33.0-37.0) g/dL RDW 13.3 (11.5-14.5) % Plt Count 265 (130-400) K/uL MPV 8.2 (7.2-11.7) fL Neut % (Auto) 57.7 (50.0-75.0) % Lymph % (Auto) 31.2 (20.0-40.0) % Young % (Auto) 10.0 (0.0-10.0) % Eos % (Auto) 0.5 (0.0-4.0) % Baso % (Auto) 0.6 (0.0-2.0) % Neut # 5.5 (1.8-7.0) K/uL Lymph # 3.0 (1.0-4.3) K/uL Young # 1.0 H (0.0-0.8) K/uL Eos # 0.0 (0.0-0.7) K/uL Baso # 0.1 (0.0-0.2) K/uL Sodium (132-148) mmol/L Potassium (3.6-5.2) mmol/L Chloride (98-107) mmol/L Carbon Dioxide (22-30) mmol/L Anion Gap (10-20) BUN (7-17) mg/dL Creatinine (0.7-1.2) MG/DL Est GFR ( Amer) Est GFR (Non-Af Amer) POC Glucose (mg/dL) 110 (65-110) mg/dL Random Glucose (65-105) mg/dL Calcium (8.6-10.4) mg/dl Phosphorus (2.5-4.5) mg/dL Magnesium (1.6-2.3) mg/dL Total Bilirubin (0.2-1.3) mg/dL AST (14-36) U/L ALT (9-52) U/L Alkaline Phosphatase (38-126) U/L Total Protein (6.3-8.3) g/dL Albumin (3.5-5.0) g/dL Globulin (2.2-3.9) gm/dL Albumin/Globulin Ratio (1.0-2.1) Blood Type B POSITIVE Antibody Screen Negative Laboratory Results - last 24 hr 02/09/17 02/09/17 02/10/17 11:27 22:05 05:37 WBC 9.6 D RBC 4.83 Hgb 14.6 Hct 43.4 MCV 89.8 MCH 30.3 MCHC 33.7 RDW 13.3 Plt Count 265 MPV 8.2 Neut % (Auto) 57.7 Lymph % (Auto) 31.2 Young % (Auto) 10.0 Eos % (Auto) 0.5 Baso % (Auto) 0.6 Neut # 5.5 Lymph # 3.0 Young # 1.0 H Eos # 0.0 Baso # 0.1 Sodium Potassium Chloride Carbon Dioxide Anion Gap BUN Creatinine Est GFR ( Amer) Est GFR (Non-Af Amer) POC Glucose (mg/dL) 110 Random Glucose Calcium Phosphorus Magnesium Total Bilirubin AST ALT Alkaline Phosphatase Total Protein Albumin Globulin Albumin/Globulin Ratio Blood Type B POSITIVE Antibody Screen Negative 02/10/17 02/10/17 02/10/17 05:37 06:36 17:49 WBC RBC Hgb Hct MCV MCH MCHC RDW Plt Count MPV Neut % (Auto) Lymph % (Auto) Young % (Auto) Eos % (Auto) Baso % (Auto) Neut # Lymph # Young # Eos # Baso # Sodium 145 Potassium 3.9 Chloride 101 Carbon Dioxide 27 Anion Gap 20 BUN 16 Creatinine 0.8 Est GFR ( Amer) > 60 Est GFR (Non-Af Amer) > 60 POC Glucose (mg/dL) 79 178 H Random Glucose 87 Calcium 9.7 Phosphorus 4.2 Magnesium 2.1 Total Bilirubin 0.5 AST 38 H D ALT 62 H Alkaline Phosphatase 40 Total Protein 7.1 Albumin 4.0 Globulin 3.1 Albumin/Globulin Ratio 1.3 Blood Type Antibody Screen Fingerstick Blood Sugar Results: 110 Review of Systems - Review of Systems Systems not reviewed;Unavailable: Altered Mental Status Critical Care Progress Note - Nutrition Nutrition: Nutrition Category Date Time Status NPO Diet [DIET] Diets 02/10/17 Breakfast Active Assessment/Plan - Assessment and Plan (Free Text) Assessment: Patient is a 62 yo F s/p neurosurgical intervention to remove a glioblastoma in medial aspect of frontal lobe Neuro: Brain mass - s/p neurosurgical intervention to remove glioblastoma from medial aspect of frontal lobe - Neurology, Dr Iverson, on board - Neurosurgery, Dr Weiss, on board - CT C/A/P: No mailg - Keppra 500mg IV Q 12hours - Ativan 1mg IVP Q 4 H PRN seizure activity MSK: palpable breast mass; rash of left arm - F/U Breast US/Mammo - Hydrocortisone cream 0.5% PRN Prophylaxis: Lovenox 40mg SC daily - on hold per neuro surgery Ativan 1mg IVQ 4h PRN seizure activity Aspiration precautions Seizure precautions Medical decision maker: there is no official healthy proxy; per son Maldonado, they will make decision-making for mother together. Her sister Noemy Albarran left her phone number [phone]. <Lu Baptiste - Last Filed: 02/10/17 19:15> CCU Subjective - Physician Review Events Since Last Encounter (Free Text): 02/10/17 19:14 61-year-old female admitted following the brain biopsy. Patient suspected having glioblastoma multiforme he. Intraoperative and postoperatively patient developed a weakness in the right side. Currently admitted to the intensive care unit. Neurological monitor. Continue the IV fluid. Spoke to the family. Very poor prognosis CCU Objective - Vital Signs / Intake & Output Vital Signs (Last 4 hours): Vital Signs Temp Pulse Resp BP Pulse Ox 02/10/17 18:20 92 H 18 99 02/10/17 18:10 77 16 99 02/10/17 18:01 75 15 153/81 H 99 02/10/17 17:01 75 15 156/86 H 100 02/10/17 16:01 91 H 15 150/84 100 02/10/17 16:00 98.2 F 100 Intake and Output (Last 8hrs): Intake & Output 02/10/17 02/10/17 02/10/17 06:59 14:59 22:59 Intake Total 285 420 Output Total 2950 600 Balance -2665 -180 Intake: IV 105 Intake, IV Amount 180 420 Right Forearm 100 Right Hand 180 320 Output: Urine 2950 600 Urethral (Nugent) 300 600 - Medications Active Medications: Active Medications Generic Name Dose Route Start Last Admin Trade Name Freq PRN Reason Stop Dose Admin Acetaminophen 650 mg 02/02/17 13:24 02/07/17 16:14 Tylenol 325mg Tab PO 650 mg Q6 PRN Administration Pain, moderate (4-7) Dexamethasone 6 mg 02/10/17 10:45 02/10/17 16:08 Decadron Inj IVP 6 mg Q6H VIKASH Administration Diphenhydramine HCl 12.5 mg 02/09/17 16:57 02/09/17 17:42 Benadryl IVP 12.5 mg Q12 PRN Administration Allergy symptoms Famotidine 20 mg 02/02/17 10:00 02/09/17 09:05 Pepcid IVP 20 mg DAILY VIKASH Administration Levetiracetam 500 mg/ Sodium 105 mls @ 420 mls/hr 02/02/17 05:00 02/10/17 16: 00 Chloride IVPB 420 mls/hr Q12H VIKASH Administration Nicardipine HCl 25 mg/ Sodium 250 mls @ 50 mls/hr 02/10/17 09:45 02/10/17 16: 04 Chloride IV Not Given .Q5H VIKASH Protocol 5 MG/HR Potassium Chloride/Dextrose/Sod Cl 1,000 mls @ 80 mls/hr 02/10/17 10:45 02/10 13:30 Potassium Chl 20 Meq In D5-1/2ns IV 80 mls/hr .[id number] VIKASH Administration Ondansetron HCl 4 mg 02/02/17 11:18 02/02/17 11:31 Zofran Inj IVP 4 mg Q4 PRN Administration Nausea/Vomiting - Patient Studies Lab Studies: Lab Studies 02/10/17 02/10/17 02/10/17 Range/Units 17:49 06:36 05:37 WBC (4.8-10.8) K/uL RBC (3.80-5.20) Mil/uL Hgb (11.0-16.0) g/dL Hct (34.0-47.0) % MCV (81.0-99.0) fL MCH (27.0-31.0) pg MCHC (33.0-37.0) g/dL RDW (11.5-14.5) % Plt Count (130-400) K/uL MPV (7.2-11.7) fL Neut % (Auto) (50.0-75.0) % Lymph % (Auto) (20.0-40.0) % Young % (Auto) (0.0-10.0) % Eos % (Auto) (0.0-4.0) % Baso % (Auto) (0.0-2.0) % Neut # (1.8-7.0) K/uL Lymph # (1.0-4.3) K/uL Young # (0.0-0.8) K/uL Eos # (0.0-0.7) K/uL Baso # (0.0-0.2) K/uL Sodium 145 (132-148) mmol/L Potassium 3.9 (3.6-5.2) mmol/L Chloride 101 (98-107) mmol/L Carbon Dioxide 27 (22-30) mmol/L Anion Gap 20 (10-20) BUN 16 (7-17) mg/dL Creatinine 0.8 (0.7-1.2) MG/DL Est GFR ( Amer) > 60 Est GFR (Non-Af Amer) > 60 POC Glucose (mg/dL) 178 H 79 (65-110) mg/dL Random Glucose 87 (65-105) mg/dL Calcium 9.7 (8.6-10.4) mg/dl Phosphorus 4.2 (2.5-4.5) mg/dL Magnesium 2.1 (1.6-2.3) mg/dL Total Bilirubin 0.5 (0.2-1.3) mg/dL AST 38 H D (14-36) U/L ALT 62 H (9-52) U/L Alkaline Phosphatase 40 (38-126) U/L Total Protein 7.1 (6.3-8.3) g/dL Albumin 4.0 (3.5-5.0) g/dL Globulin 3.1 (2.2-3.9) gm/dL Albumin/Globulin Ratio 1.3 (1.0-2.1) Blood Type Antibody Screen 02/10/17 02/09/17 02/09/17 Range/Units 05:37 22:05 11:27 WBC 9.6 D (4.8-10.8) K/uL RBC 4.83 (3.80-5.20) Mil/uL Hgb 14.6 (11.0-16.0) g/dL Hct 43.4 (34.0-47.0) % MCV 89.8 (81.0-99.0) fL MCH 30.3 (27.0-31.0) pg MCHC 33.7 (33.0-37.0) g/dL RDW 13.3 (11.5-14.5) % Plt Count 265 (130-400) K/uL MPV 8.2 (7.2-11.7) fL Neut % (Auto) 57.7 (50.0-75.0) % Lymph % (Auto) 31.2 (20.0-40.0) % Young % (Auto) 10.0 (0.0-10.0) % Eos % (Auto) 0.5 (0.0-4.0) % Baso % (Auto) 0.6 (0.0-2.0) % Neut # 5.5 (1.8-7.0) K/uL Lymph # 3.0 (1.0-4.3) K/uL Young # 1.0 H (0.0-0.8) K/uL Eos # 0.0 (0.0-0.7) K/uL Baso # 0.1 (0.0-0.2) K/uL Sodium (132-148) mmol/L Potassium (3.6-5.2) mmol/L Chloride (98-107) mmol/L Carbon Dioxide (22-30) mmol/L Anion Gap (10-20) BUN (7-17) mg/dL Creatinine (0.7-1.2) MG/DL Est GFR ( Amer) Est GFR (Non-Af Amer) POC Glucose (mg/dL) 110 (65-110) mg/dL Random Glucose (65-105) mg/dL Calcium (8.6-10.4) mg/dl Phosphorus (2.5-4.5) mg/dL Magnesium (1.6-2.3) mg/dL Total Bilirubin (0.2-1.3) mg/dL AST (14-36) U/L ALT (9-52) U/L Alkaline Phosphatase (38-126) U/L Total Protein (6.3-8.3) g/dL Albumin (3.5-5.0) g/dL Globulin (2.2-3.9) gm/dL Albumin/Globulin Ratio (1.0-2.1) Blood Type B POSITIVE Antibody Screen Negative Laboratory Results - last 24 hr 02/09/17 02/09/17 02/10/17 11:27 22:05 05:37 WBC 9.6 D RBC 4.83 Hgb 14.6 Hct 43.4 MCV 89.8 MCH 30.3 MCHC 33.7 RDW 13.3 Plt Count 265 MPV 8.2 Neut % (Auto) 57.7 Lymph % (Auto) 31.2 Young % (Auto) 10.0 Eos % (Auto) 0.5 Baso % (Auto) 0.6 Neut # 5.5 Lymph # 3.0 Young # 1.0 H Eos # 0.0 Baso # 0.1 Sodium Potassium Chloride Carbon Dioxide Anion Gap BUN Creatinine Est GFR ( Amer) Est GFR (Non-Af Amer) POC Glucose (mg/dL) 110 Random Glucose Calcium Phosphorus Magnesium Total Bilirubin AST ALT Alkaline Phosphatase Total Protein Albumin Globulin Albumin/Globulin Ratio Blood Type B POSITIVE Antibody Screen Negative 02/10/17 02/10/17 02/10/17 05:37 06:36 17:49 WBC RBC Hgb Hct MCV MCH MCHC RDW Plt Count MPV Neut % (Auto) Lymph % (Auto) Young % (Auto) Eos % (Auto) Baso % (Auto) Neut # Lymph # Young # Eos # Baso # Sodium 145 Potassium 3.9 Chloride 101 Carbon Dioxide 27 Anion Gap 20 BUN 16 Creatinine 0.8 Est GFR ( Amer) > 60 Est GFR (Non-Af Amer) > 60 POC Glucose (mg/dL) 79 178 H Random Glucose 87 Calcium 9.7 Phosphorus 4.2 Magnesium 2.1 Total Bilirubin 0.5 AST 38 H D ALT 62 H Alkaline Phosphatase 40 Total Protein 7.1 Albumin 4.0 Globulin 3.1 Albumin/Globulin Ratio 1.3 Blood Type Antibody Screen Critical Care Progress Note - Nutrition Nutrition: Nutrition Category Date Time Status NPO Diet [DIET] Diets 02/10/17 Breakfast Active
[2017-02-11] MEDS: Potassium Ch 20mEq in D5-1/2NS 1,000 ML IV SCH ×3 (00:08→16:20)
[2017-02-11] MEDS: niCARdipine IV 25 MG in Sodium Chloride 0.9% 240 ML IV SCH ×2 (00:45→05:45)
--- NOTE | 2017-02-11 02:22 | OP ---
PROCEDURE DATE: 02/10/2017 SURGEON: Isra Weiss MD CUSTOMER EXPERIENCE PROFESSIONAL: PREOPERATIVE DIAGNOSIS: Left frontoparietal parenchyma. POSTOPERATIVE DIAGNOSIS: Left frontoparietal parenchyma. OPERATIVE PROCEDURE: Craniotomy, excisional biopsy of brain tumor. DESCRIPTION OF PROCEDURE: The patient was brought to the operating room, intubated appropriately, placed in [facility] head end desizing machine operator in a parallel position. Her hair was clipped and her head was prepped and draped in the usual manner. The patient was given Mannitol, Lasix and antibiotics. A lazy S type incision type incision was marked out from just around the cranial suture down approximately 4 inches of caudad and instilled with lidocaine with epinephrine. This was done over the midline. After prepping and draping, the incision was made sharply, Gelpi retractors were used to retract the scalp and then 5 dayana holes were made, 2 on the left side, approximately a centimeter and half from midline and 3 on the right side just across the midline. The dura was then stripped off the overlying skull with Linden elevator and a craniotome was used to connect the dayana holes. The flap was removed, and the dura was then opened in a C-shaped manner based at the midline. The arachnoid adhesions were stripped off the brain connecting it to the dura and the brain was decently retracted laterally. The brain was protected with a combination of cotton balls and cottonoid patties and microscope was then brought in. The rest of the procedure was done under the operating microscope. We examined along the falx both cephalad and caudad to see if there was any mass within the falx itself, and we identified that the falx itself appeared normal. We then explored the medial bank of the left hemisphere and identified an area near the cephalad area of the incision, which appeared discolored. Several specimens were taken and hemostasis was obtained. This was sent for pathology and a frozen section demonstrated that this was a glioma. We then obtained hemostasis thinking that any further removal of tumor would cause permanent neurologic deficit. After hemostasis was obtained and was meticulous, the wound was thoroughly irrigated, the dura was then reapproximated with 4-0 Nurolon. Gelfoam was placed over the exposed dura and skull was reapproximated with 3 large rapid fix clamps and 1 small one. The scalp was then reapproximated with 3-0 Vicryl skin robin. Sterile dressing was applied. At this point, the patient is still awakening from anesthesia, cannot assess neurologically. All counts were correct. SPECIMEN: Mass frozen section glioma. BLOOD LOSS: Approximately 150 mL. No transfusion was given. The patient was hemodynamically stable throughout. Isra Weiss MD
[2017-02-11] MEDS: levETIRAcetam 500 MG in Sodium Chloride 0.9% 100 ML IVPB SCH ×2 (05:08→17:33)
[2017-02-11] MEDS: Dexamethasone 4 mg/1 ml IVP SCH ×4 (05:08→21:46)
[2017-02-11 06:33] LABS: CHLORIDE 105 mmol/L (98-107)
[2017-02-11 06:34] LABS: POTASSIUM 3.8 mmol/L (3.6-5.2); SODIUM 141 mmol/L (132-148)
[2017-02-11 06:35] LABS: BASO % 0.2 % (0.0-2.0); HEMATOCRIT 40.7 % (34.0-47.0); LYMPH # 1.4 K/uL (1.0-4.3); LYMPH % 9.3 % (20.0-40.0); MEAN CELL VOLUME 89.7 fL (81.0-99.0); MEAN CORPUSCULAR HEMOGLOBIN 30.5 pg (27.0-31.0); MEAN CORPUSCULAR HGB CONC 33.9 g/dL (33.0-37.0); MEAN PLATELET VOLUME 8.5 fL (7.2-11.7); MONO # 0.8 K/uL (0.0-0.8); MONO % 5.5 % (0.0-10.0); PLATELET COUNT 300 K/uL (130-400); RED CELL DISTRIBUTION WIDTH 13.7 % (11.5-14.5); WHITE BLOOD COUNT 15.4 K/uL (4.8-10.8)
[2017-02-11 06:36] LABS: ALB/GLOB RATIO 1.2 (1.0-2.1); ALKALINE PHOSPHATASE 41 U/L (38-126); AST/SGOT 34 U/L (14-36); BILIRUBIN,TOTAL 0.5 mg/dL (0.2-1.3); CARBON DIOXIDE 24 mmol/L (22-30); GFR AFRICAN-AMERICAN > 60; TOTAL PROTEIN 7.1 g/dL (6.3-8.3)
[2017-02-11 06:37] LABS: ALT/SGPT 58 U/L (9-52); BLOOD UREA NITROGEN 12 mg/dL (7-17); CALCIUM 9.1 mg/dl (8.6-10.4); GLUCOSE,RANDOM 198 mg/dL (65-105); PHOSPHOROUS 2.8 mg/dL (2.5-4.5)
--- NOTE | 2017-02-11 08:01 | CP.CCUPN ---
<Wilman Ybarra - Last Filed: 02/11/17 13:08> CCU Subjective - Physician Review Subjective (Free Text): Patient seen and examined at bedside with son present. Per son, patient awake, responds intermittently to commands but non-verbal since her brain biopsy yesterday AM and unable to move right arm/right leg since procedure. Some mild spotting noted from guaze at surgical site - Dr Weiss to come evaluate. ROS unobtainable as patient is non-verbal. 02/11/17 13:06 CCU Objective - Vital Signs / Intake & Output Vital Signs (Last 4 hours): Vital Signs Temp Pulse Resp BP Pulse Ox 02/11/17 06:10 93 H 18 96 02/11/17 06:01 106 H 21 157/93 H 96 02/11/17 06:00 104 H 15 97 02/11/17 05:50 110 H 16 97 02/11/17 05:40 110 H 21 96 02/11/17 05:30 105 H 20 97 02/11/17 05:20 101 H 18 97 02/11/17 05:10 93 H 19 96 02/11/17 05:01 91 H 19 133/74 96 02/11/17 05:00 92 H 18 96 02/11/17 04:50 90 17 95 02/11/17 04:40 107 H 18 97 02/11/17 04:30 112 H 16 96 02/11/17 04:20 119 H 15 96 02/11/17 04:10 118 H 20 96 02/11/17 04:01 126 H 16 152/94 H 94 L 02/11/17 04:00 98.5 F 122 H 19 96 Intake and Output (Last 8hrs): Intake & Output 02/10/17 02/11/17 02/11/17 22:59 06:59 14:59 Intake Total 740 720 Output Total 1200 560 Balance -460 160 Intake: Intake, IV Amount 740 720 Right Forearm 100 Right Hand 640 720 Output: Urine 1200 560 Urethral (Nugent) 1200 560 - Physical Exam Head: Positive for: Other (s/p neurosurgery in occiptal lobe, dressing c/d/i) Pupils: Positive for: PERRL Extroacular Muscles: Positive for: EOMI Respiratory/Chest: Positive for: Clear to Auscultation Cardiovascular: Positive for: Regular Rate and Rhythm, Normal S1, S2 Abdomen: Positive for: Normal Bowel Sounds. Negative for: Distention Upper Extremity: Negative for: Edema Lower Extremity: Positive for: Other (Left Upper Extremity: 5, Right Upper Extremity: 3, Left Lower Extremity: 5, Right Lower Extremity: 3). Negative for : Edema Neurological: Positive for: Other (0/5 motor strength in right arm and right leg ). Negative for: Speech Normal Skin: Positive for: Warm, Dry, Normal Color - Medications Active Medications: Active Medications Generic Name Dose Route Start Last Admin Trade Name Freq PRN Reason Stop Dose Admin Acetaminophen 650 mg 02/02/17 13:24 02/07/17 16:14 Tylenol 325mg Tab PO 650 mg Q6 PRN Administration Pain, moderate (4-7) Dexamethasone 6 mg 02/10/17 10:45 02/11/17 05:08 Decadron Inj IVP 6 mg Q6H [facility]KASH Administration Diphenhydramine HCl 12.5 mg 02/09/17 16:57 02/09/17 17:42 Benadryl IVP 12.5 mg Q12 PRN Administration Allergy symptoms Famotidine 20 mg 02/02/17 10:00 02/09/17 09:05 Pepcid IVP 20 mg DAILY VIKASH Administration Levetiracetam 500 mg/ Sodium 105 mls @ 420 mls/hr 02/02/17 05:00 02/11/17 05: 08 Chloride IVPB 420 mls/hr Q12H [facility]KASH Administration Nicardipine HCl 25 mg/ Sodium 250 mls @ 50 mls/hr 02/10/17 09:45 02/11/17 05: 45 Chloride IV Not Given .Q5H VIKASH Protocol 5 MG/HR Potassium Chloride/Dextrose/Sod Cl 1,000 mls @ 80 mls/hr 02/10/17 10:45 02/11 02:38 Potassium Chl 20 Meq In D5-1/2ns IV 80 mls/hr .[id number] [facility] Administration Ondansetron HCl 4 mg 02/02/17 11:18 02/02/17 11:31 Zofran Inj IVP 4 mg Q4 PRN Administration Nausea/Vomiting - Patient Studies Lab Studies: Lab Studies 02/11/17 02/11/17 02/11/17 Range/Units 07:12 06:14 06:14 WBC 15.4 H D (4.8-10.8) K/uL RBC 4.53 (3.80-5.20) Mil/uL Hgb 13.8 (11.0-16.0) g/dL Hct 40.7 (34.0-47.0) % MCV 89.7 (81.0-99.0) fL MCH 30.5 (27.0-31.0) pg MCHC 33.9 (33.0-37.0) g/dL RDW 13.7 (11.5-14.5) % Plt Count 300 (130-400) K/uL MPV 8.5 (7.2-11.7) fL Neut % (Auto) 85.0 H (50.0-75.0) % Lymph % (Auto) 9.3 L (20.0-40.0) % Traverse % (Auto) 5.5 (0.0-10.0) % Eos % (Auto) 0.0 (0.0-4.0) % Baso % (Auto) 0.2 (0.0-2.0) % Neut # 13.1 H (1.8-7.0) K/uL Lymph # 1.4 (1.0-4.3) K/uL Traverse # 0.8 (0.0-0.8) K/uL Eos # 0.0 (0.0-0.7) K/uL Baso # 0.0 (0.0-0.2) K/uL Sodium 141 (132-148) mmol/L Potassium 3.8 (3.6-5.2) mmol/L Chloride 105 (98-107) mmol/L Carbon Dioxide 24 (22-30) mmol/L Anion Gap 15 (10-20) BUN 12 (7-17) mg/dL Creatinine 0.7 (0.7-1.2) MG/DL Est GFR ( Amer) > 60 Est GFR (Non-Af Amer) > 60 POC Glucose (mg/dL) 202 H (65-110) mg/dL Random Glucose 198 H (65-105) mg/dL Calcium 9.1 (8.6-10.4) mg/dl Phosphorus 2.8 (2.5-4.5) mg/dL Magnesium 2.0 (1.6-2.3) mg/dL Total Bilirubin 0.5 (0.2-1.3) mg/dL AST 34 (14-36) U/L ALT 58 H (9-52) U/L Alkaline Phosphatase 41 (38-126) U/L Total Protein 7.1 (6.3-8.3) g/dL Albumin 3.9 (3.5-5.0) g/dL Globulin 3.1 (2.2-3.9) gm/dL Albumin/Globulin Ratio 1.2 (1.0-2.1) Blood Type Antibody Screen 02/10/17 02/10/17 02/09/17 Range/Units 21:20 17:49 11:27 WBC (4.8-10.8) K/uL RBC (3.80-5.20) Mil/uL Hgb (11.0-16.0) g/dL Hct (34.0-47.0) % MCV (81.0-99.0) fL MCH (27.0-31.0) pg MCHC (33.0-37.0) g/dL RDW (11.5-14.5) % Plt Count (130-400) K/uL MPV (7.2-11.7) fL Neut % (Auto) (50.0-75.0) % Lymph % (Auto) (20.0-40.0) % Traverse % (Auto) (0.0-10.0) % Eos % (Auto) (0.0-4.0) % Baso % (Auto) (0.0-2.0) % Neut # (1.8-7.0) K/uL Lymph # (1.0-4.3) K/uL Traverse # (0.0-0.8) K/uL Eos # (0.0-0.7) K/uL Baso # (0.0-0.2) K/uL Sodium (132-148) mmol/L Potassium (3.6-5.2) mmol/L Chloride (98-107) mmol/L Carbon Dioxide (22-30) mmol/L Anion Gap (10-20) BUN (7-17) mg/dL Creatinine (0.7-1.2) MG/DL Est GFR ( Amer) Est GFR (Non-Af Amer) POC Glucose (mg/dL) 209 H 178 H (65-110) mg/dL Random Glucose (65-105) mg/dL Calcium (8.6-10.4) mg/dl Phosphorus (2.5-4.5) mg/dL Magnesium (1.6-2.3) mg/dL Total Bilirubin (0.2-1.3) mg/dL AST (14-36) U/L ALT (9-52) U/L Alkaline Phosphatase (38-126) U/L Total Protein (6.3-8.3) g/dL Albumin (3.5-5.0) g/dL Globulin (2.2-3.9) gm/dL Albumin/Globulin Ratio (1.0-2.1) Blood Type B POSITIVE Antibody Screen Negative Laboratory Results - last 24 hr 02/09/17 02/10/17 02/10/17 11:27 17:49 21:20 WBC RBC Hgb Hct MCV MCH MCHC RDW Plt Count MPV Neut % (Auto) Lymph % (Auto) Traverse % (Auto) Eos % (Auto) Baso % (Auto) Neut # Lymph # Traverse # Eos # Baso # Sodium Potassium Chloride Carbon Dioxide Anion Gap BUN Creatinine Est GFR ( Amer) Est GFR (Non-Af Amer) POC Glucose (mg/dL) 178 H 209 H Random Glucose Calcium Phosphorus Magnesium Total Bilirubin AST ALT Alkaline Phosphatase Total Protein Albumin Globulin Albumin/Globulin Ratio Blood Type B POSITIVE Antibody Screen Negative 02/11/17 02/11/17 02/11/17 06:14 06:14 07:12 WBC 15.4 H D RBC 4.53 Hgb 13.8 Hct 40.7 MCV 89.7 MCH 30.5 MCHC 33.9 RDW 13.7 Plt Count 300 MPV 8.5 Neut % (Auto) 85.0 H Lymph % (Auto) 9.3 L Traverse % (Auto) 5.5 Eos % (Auto) 0.0 Baso % (Auto) 0.2 Neut # 13.1 H Lymph # 1.4 Traverse # 0.8 Eos # 0.0 Baso # 0.0 Sodium 141 Potassium 3.8 Chloride 105 Carbon Dioxide 24 Anion Gap 15 BUN 12 Creatinine 0.7 Est GFR ( Amer) > 60 Est GFR (Non-Af Amer) > 60 POC Glucose (mg/dL) 202 H Random Glucose 198 H Calcium 9.1 Phosphorus 2.8 Magnesium 2.0 Total Bilirubin 0.5 AST 34 ALT 58 H Alkaline Phosphatase 41 Total Protein 7.1 Albumin 3.9 Globulin 3.1 Albumin/Globulin Ratio 1.2 Blood Type Antibody Screen Fingerstick Blood Sugar Results: 209 Review of Systems - Review of Systems Systems not reviewed;Unavailable: Other (aphasia) Critical Care Progress Note - Nutrition Nutrition: Nutrition Category Date Time Status NPO Diet [DIET] Diets 02/10/17 Breakfast Active Assessment/Plan - Assessment and Plan (Free Text) Assessment: Patient is a 62 yo F s/p brain biopsy and suspected glioblastoma multiforme in medial aspect of frontal lobe Neuro: Brain mass - s/p brain biopsy and suspected glioblastoma multiforme in medial aspect of frontal lobe - Intra-operative and post-operatively patient developed a weakness in the right side - Neurology, Dr Iverson, on board - Neurosurgery, Dr Weiss, on board - MRI brain: enhancing mass lesion from medial aspect left frontal lobe - CT C/A/P: no pattern of malignancy appreciated - - Keppra 500mg IV Q 12hours - Ativan 1mg IVP Q 4 H PRN seizure activity MSK: palpable breast mass; rash of left arm - F/U Breast US/Mammo - Hydrocortisone cream 0.5% PRN Prophylaxis: Lovenox 40mg SC daily - on hold per neuro surgery Ativan 1mg IVQ 4h PRN seizure activity Aspiration precautions Seizure precautions Medical decision maker: there is no official healthy proxy; per son Maldonado, they will make decision-making for mother together. Her sister Noemy Albarran left her phone number [phone]. <Cain Stevens - Last Filed: 02/11/17 18:32> CCU Objective - Vital Signs / Intake & Output Vital Signs (Last 4 hours): Vital Signs Pulse Resp BP Pulse Ox 02/11/17 15:00 95 H 21 97 02/11/17 14:46 99 H 19 159/82 H 96 Intake and Output (Last 8hrs): Intake & Output 02/11/17 02/11/17 02/11/17 06:59 14:59 22:59 Intake Total 720 640 80 Output Total 560 365 30 Balance 160 275 50 Intake: Intake, IV Amount 720 640 80 Right Hand 720 640 80 Output: Urine 560 365 30 Urethral (Nugent) 560 365 30 Emesis 0 Other: # Bowel Movements 0 0 - Medications Active Medications: Active Medications Generic Name Dose Route Start Last Admin Trade Name Freq PRN Reason Stop Dose Admin Acetaminophen 650 mg 02/02/17 13:24 02/07/17 16:14 Tylenol 325mg Tab PO 650 mg Q6 PRN Administration Pain, moderate (4-7) Dexamethasone 6 mg 02/10/17 10:45 02/11/17 17:31 Decadron Inj IVP 6 mg Q6H [facility]KASH Administration Diphenhydramine HCl 12.5 mg 02/09/17 16:57 02/09/17 17:42 Benadryl IVP 12.5 mg Q12 PRN Administration Allergy symptoms Famotidine 20 mg 02/02/17 10:00 02/11/17 17:28 Pepcid IVP 20 mg DAILY [facility]KASH Administration Levetiracetam 500 mg/ Sodium 105 mls @ 420 mls/hr 02/02/17 05:00 02/11/17 17: 33 Chloride IVPB 420 mls/hr Q12H [facility]KASH Administration Potassium Chloride/Dextrose/Sod Cl 1,000 mls @ 80 mls/hr 02/10/17 10:45 02/11 16:20 Potassium Chl 20 Meq In D5-1/2ns IV 80 mls/hr .[id number] [facility]KASH Administration Ondansetron HCl 4 mg 02/02/17 11:18 02/02/17 11:31 Zofran Inj IVP 4 mg Q4 PRN Administration Nausea/Vomiting - Patient Studies Lab Studies: Lab Studies 02/11/17 02/11/17 02/11/17 Range/Units 16:08 10:54 07:12 WBC (4.8-10.8) K/uL RBC (3.80-5.20) Mil/uL Hgb (11.0-16.0) g/dL Hct (34.0-47.0) % MCV (81.0-99.0) fL MCH (27.0-31.0) pg MCHC (33.0-37.0) g/dL RDW (11.5-14.5) % Plt Count (130-400) K/uL MPV (7.2-11.7) fL Neut % (Auto) (50.0-75.0) % Lymph % (Auto) (20.0-40.0) % Traverse % (Auto) (0.0-10.0) % Eos % (Auto) (0.0-4.0) % Baso % (Auto) (0.0-2.0) % Neut # (1.8-7.0) K/uL Lymph # (1.0-4.3) K/uL Traverse # (0.0-0.8) K/uL Eos # (0.0-0.7) K/uL Baso # (0.0-0.2) K/uL Neutrophils % (Manual) (50-75) % Lymphocytes % (Manual) (20-40) % Monocytes % (Manual) (0-10) % Platelet Estimate (NORMAL) RBC Morphology Sodium (132-148) mmol/L Potassium (3.6-5.2) mmol/L Chloride (98-107) mmol/L Carbon Dioxide (22-30) mmol/L Anion Gap (10-20) BUN (7-17) mg/dL Creatinine (0.7-1.2) MG/DL Est GFR ( Amer) Est GFR (Non-Af Amer) POC Glucose (mg/dL) 197 H 202 H 202 H (65-110) mg/dL Random Glucose (65-105) mg/dL Calcium (8.6-10.4) mg/dl Phosphorus (2.5-4.5) mg/dL Magnesium (1.6-2.3) mg/dL Total Bilirubin (0.2-1.3) mg/dL AST (14-36) U/L ALT (9-52) U/L Alkaline Phosphatase (38-126) U/L Total Protein (6.3-8.3) g/dL Albumin (3.5-5.0) g/dL Globulin (2.2-3.9) gm/dL Albumin/Globulin Ratio (1.0-2.1) 02/11/17 02/11/17 02/10/17 Range/Units 06:14 06:14 21:20 WBC 15.4 H D (4.8-10.8) K/uL RBC 4.53 (3.80-5.20) Mil/uL Hgb 13.8 (11.0-16.0) g/dL Hct 40.7 (34.0-47.0) % MCV 89.7 (81.0-99.0) fL MCH 30.5 (27.0-31.0) pg MCHC 33.9 (33.0-37.0) g/dL RDW 13.7 (11.5-14.5) % Plt Count 300 (130-400) K/uL MPV 8.5 (7.2-11.7) fL Neut % (Auto) 85.0 H (50.0-75.0) % Lymph % (Auto) 9.3 L (20.0-40.0) % Traverse % (Auto) 5.5 (0.0-10.0) % Eos % (Auto) 0.0 (0.0-4.0) % Baso % (Auto) 0.2 (0.0-2.0) % Neut # 13.1 H (1.8-7.0) K/uL Lymph # 1.4 (1.0-4.3) K/uL Traverse # 0.8 (0.0-0.8) K/uL Eos # 0.0 (0.0-0.7) K/uL Baso # 0.0 (0.0-0.2) K/uL Neutrophils % (Manual) 88 H (50-75) % Lymphocytes % (Manual) 2 L (20-40) % Monocytes % (Manual) 4 (0-10) % Platelet Estimate Normal (NORMAL) RBC Morphology Normal Sodium 141 (132-148) mmol/L Potassium 3.8 (3.6-5.2) mmol/L Chloride 105 (98-107) mmol/L Carbon Dioxide 24 (22-30) mmol/L Anion Gap 15 (10-20) BUN 12 (7-17) mg/dL Creatinine 0.7 (0.7-1.2) MG/DL Est GFR ( Amer) > 60 Est GFR (Non-Af Amer) > 60 POC Glucose (mg/dL) 209 H (65-110) mg/dL Random Glucose 198 H (65-105) mg/dL Calcium 9.1 (8.6-10.4) mg/dl Phosphorus 2.8 (2.5-4.5) mg/dL Magnesium 2.0 (1.6-2.3) mg/dL Total Bilirubin 0.5 (0.2-1.3) mg/dL AST 34 (14-36) U/L ALT 58 H (9-52) U/L Alkaline Phosphatase 41 (38-126) U/L Total Protein 7.1 (6.3-8.3) g/dL Albumin 3.9 (3.5-5.0) g/dL Globulin 3.1 (2.2-3.9) gm/dL Albumin/Globulin Ratio 1.2 (1.0-2.1) Laboratory Results - last 24 hr 02/10/17 02/11/17 02/11/17 21:20 06:14 06:14 WBC 15.4 H D RBC 4.53 Hgb 13.8 Hct 40.7 MCV 89.7 MCH 30.5 MCHC 33.9 RDW 13.7 Plt Count 300 MPV 8.5 Neut % (Auto) 85.0 H Lymph % (Auto) 9.3 L Traverse % (Auto) 5.5 Eos % (Auto) 0.0 Baso % (Auto) 0.2 Neut # 13.1 H Lymph # 1.4 Traverse # 0.8 Eos # 0.0 Baso # 0.0 Neutrophils % (Manual) 88 H Lymphocytes % (Manual) 2 L Monocytes % (Manual) 4 Platelet Estimate Normal RBC Morphology Normal Sodium 141 Potassium 3.8 Chloride 105 Carbon Dioxide 24 Anion Gap 15 BUN 12 Creatinine 0.7 Est GFR ( Amer) > 60 Est GFR (Non-Af Amer) > 60 POC Glucose (mg/dL) 209 H Random Glucose 198 H Calcium 9.1 Phosphorus 2.8 Magnesium 2.0 Total Bilirubin 0.5 AST 34 ALT 58 H Alkaline Phosphatase 41 Total Protein 7.1 Albumin 3.9 Globulin 3.1 Albumin/Globulin Ratio 1.2 02/11/17 02/11/17 02/11/17 07:12 10:54 16:08 WBC RBC Hgb Hct MCV MCH MCHC RDW Plt Count MPV Neut % (Auto) Lymph % (Auto) Traverse % (Auto) Eos % (Auto) Baso % (Auto) Neut # Lymph # Traverse # Eos # Baso # Neutrophils % (Manual) Lymphocytes % (Manual) Monocytes % (Manual) Platelet Estimate RBC Morphology Sodium Potassium Chloride Carbon Dioxide Anion Gap BUN Creatinine Est GFR ( Amer) Est GFR (Non-Af Amer) POC Glucose (mg/dL) 202 H 202 H 197 H Random Glucose Calcium Phosphorus Magnesium Total Bilirubin AST ALT Alkaline Phosphatase Total Protein Albumin Globulin Albumin/Globulin Ratio Critical Care Progress Note - Nutrition Nutrition: Nutrition Category Date Time Status NPO Diet [DIET] Diets 02/10/17 Breakfast Active Attending/Attestation - Attestation I have personally seen and examined this patient.: Yes I have fully participated in the care of the patient.: Yes I have reviewed all pertinent clinical information: Yes Notes (Text): 02/11/17 18:32 Patient seen and examined in the intensive care unit. Case discussed with house staff in the morning rounds. Patient seen by neurosurgery Continue ICU monitoring
[2017-02-11 08:20] LABS: TOTAL CELLS COUNTED 100
[2017-02-11 08:21] LABS: NEUTROPHIL 88 % (50-75)
--- NOTE | 2017-02-11 13:05 | CT ---
PROCEDURE: CT HEAD WITHOUT CONTRAST. HISTORY: right sided weakness s/p brain biopsy COMPARISON: Brain MRI 02/04/2017. TECHNIQUE: Axial computed tomography images were obtained through the head/brain without intravenous contrast. Radiation dose: Total exam DLP = 982 mGy-cm. This CT exam was performed using one or more of the following dose reduction techniques: Automated exposure control, adjustment of the mA and/or kV according to patient size, and/or use of iterative reconstruction technique. FINDINGS: HEMORRHAGE: No intracranial hemorrhageTrace hemorrhage is difficult to identify as specifically sub arachnoid versus intraparenchymal in the superior margins of the prior operative site in this patient. Limited hemorrhage is seen at the prior biopsy/ partial resection site at the left frontal lobe superomedially/corpus callosum anteriorly. Pneumocephalus appreciated postoperatively as well likely trace left prior fall seen subdural hematoma posteriorly. This minimal hemorrhage is on the order 1.5-2 mm thickness. A 9 mm rightward postoperative midline shift is appreciated on the basis of local edema anteriorly with no shift appreciated posteriorly. Prior bifrontal craniotomy is appreciated left greater than right. BRAIN: Inclusive of the postoperative changes described above, limited diffuse cerebral atrophy is again appreciate posterior fossa contents appear unremarkable the brainstem. VENTRICLES: Unremarkable. No hydrocephalus. CALVARIUM: Unremarkable. PARANASAL SINUSES: Unremarkable as visualized. No significant inflammatory changes. MASTOID AIR CELLS: Unremarkable as visualized. No inflammatory changes. OTHER FINDINGS: None. IMPRESSION: Trace likely postop hemorrhage is appreciate the operative site at the left frontal lobe superomedially with an approximate 1 cm rightward midline shift on the basis of postoperative edema in this patient status post biopsy of a mass by a bifrontal craniotomy. Mild pneumocephaly is appreciated postoperatively with remainder of the brain reflecting diffuse cerebral atrophy mildly. A minimal left parafalcine subdural hematoma is appreciated as well. Clinical and potential CT follow-up are advised.
--- NOTE | 2017-02-11 13:37 | CP.PCM.PN ---
Subjective - Date & Time of Evaluation Date of Evaluation: 02/11/17 Time of Evaluation: 13:35 - Subjective Subjective: pod 1 awake alert appears to have partial receptive and expressive aphasia hypertonic paralysis r and and leg This was expected CT shows good post op result air and blood expected cont observation await final path Objective - Vital Signs/Intake and Output Vital Signs (last 24 hours): Temp Pulse Resp BP Pulse Ox 98.5 F 93 H 18 157/93 H 96 02/11/17 04:00 02/11/17 06:10 02/11/17 06:10 02/11/17 06:01 02/11/17 06:10 Intake and Output: 02/11/17 02/11/17 06:59 18:59 Intake Total 1040 Output Total 1160 Balance -120 - Medications Medications: Current Medications Acetaminophen (Tylenol 325mg Tab) 650 mg PO Q6 PRN PRN Reason: Pain, moderate (4-7) Last Admin: 02/07/17 16:14 Dose: 650 mg Dexamethasone (Decadron Inj) 6 mg IVP Q6H [facility] Last Admin: 02/11/17 09:56 Dose: 6 mg Diphenhydramine HCl (Benadryl) 12.5 mg IVP Q12 PRN PRN Reason: Allergy symptoms Last Admin: 02/09/17 17:42 Dose: 12.5 mg Famotidine (Pepcid) 20 mg IVP DAILY [facility] Last Admin: 02/09/17 09:05 Dose: 20 mg Levetiracetam 500 mg/ Sodium (Chloride) 105 mls @ 420 mls/hr IVPB Q12H [facility] Last Admin: 02/11/17 05:08 Dose: 420 mls/hr Potassium Chloride/Dextrose/Sod Cl (Potassium Chl 20 Meq In D5-1/2ns) 1,000 mls @ 80 mls/hr IV .[id number] [facility] Last Admin: 02/11/17 02:38 Dose: 80 mls/hr Ondansetron HCl (Zofran Inj) 4 mg IVP Q4 PRN PRN Reason: Nausea/Vomiting Last Admin: 02/02/17 11:31 Dose: 4 mg - Labs Labs: 02/11/17 06:14 02/11/17 06:14 PT 11.5 SECONDS (9.7-12.2) 02/01/17 16:23 INR 1.0 02/01/17 16:23 APTT 28 SECONDS (21-34) 02/09/17 11:29
--- NOTE | 2017-02-11 15:45 | CP.PCM.PN ---
Subjective - Date & Time of Evaluation Date of Evaluation: 02/11/17 Time of Evaluation: 15:00 - Subjective Subjective: Patient was seen and examined in ICU. Objective - Vital Signs/Intake and Output Vital Signs (last 24 hours): Temp Pulse Resp BP Pulse Ox 98.5 F 95 H 21 159/82 H 97 02/11/17 08:00 02/11/17 15:00 02/11/17 15:00 02/11/17 14:46 02/11/17 15:00 Intake and Output: 02/11/17 02/11/17 06:59 18:59 Intake Total 1040 720 Output Total 1160 395 Balance -120 325 - Medications Medications: Current Medications Acetaminophen (Tylenol 325mg Tab) 650 mg PO Q6 PRN PRN Reason: Pain, moderate (4-7) Last Admin: 02/07/17 16:14 Dose: 650 mg Dexamethasone (Decadron Inj) 6 mg IVP Q6H [facility] Last Admin: 02/11/17 09:56 Dose: 6 mg Diphenhydramine HCl (Benadryl) 12.5 mg IVP Q12 PRN PRN Reason: Allergy symptoms Last Admin: 02/09/17 17:42 Dose: 12.5 mg Famotidine (Pepcid) 20 mg IVP DAILY [facility] Last Admin: 02/09/17 09:05 Dose: 20 mg Levetiracetam 500 mg/ Sodium (Chloride) 105 mls @ 420 mls/hr IVPB Q12H [facility] Last Admin: 02/11/17 05:08 Dose: 420 mls/hr Potassium Chloride/Dextrose/Sod Cl (Potassium Chl 20 Meq In D5-1/2ns) 1,000 mls @ 80 mls/hr IV .[id number] [facility] Last Admin: 02/11/17 02:38 Dose: 80 mls/hr Ondansetron HCl (Zofran Inj) 4 mg IVP Q4 PRN PRN Reason: Nausea/Vomiting Last Admin: 02/02/17 11:31 Dose: 4 mg - Labs Labs: 02/11/17 06:14 02/11/17 06:14 PT 11.5 SECONDS (9.7-12.2) 02/01/17 16:23 INR 1.0 02/01/17 16:23 APTT 28 SECONDS (21-34) 02/09/17 11:29 - Head Exam Additional comments: Surgical dressing present at the site of surgery. - Eye Exam Eye Exam: PERRL - Neck Exam Neck Exam: Normal Inspection - Respiratory Exam Respiratory Exam: Clear to Ausculation Bilateral - Cardiovascular Exam Cardiovascular Exam: REGULAR RHYTHM, +S1, +S2 - GI/Abdominal Exam GI & Abdominal Exam: Soft. absent: Tenderness - Neurological Exam Neuro motor strength exam: Left Upper Extremity: 5, Right Upper Extremity: 0, Left Lower Extremity: 5, Right Lower Extremity: 0 Assessment and Plan (1) Acute right-sided weakness Status: Acute (2) Brain mass Status: Acute (3) Focal seizures Status: Acute - Assessment and Plan (Free Text) Plan: Patient has expressive aphagia and right hemiplegia. Discuss with neurosurgery. Expected outcome after the surgery Continue current medical management as per ICU team Discussed with the ICU resident and ICU attending. Discussed with neurosurgery Discussed with the nursing staff
--- NOTE | 2017-02-11 16:47 | CP.PCM.PN ---
Subjective - Date & Time of Evaluation Date of Evaluation: 02/11/17 Time of Evaluation: 16:43 - Subjective Subjective: Mrs. Albarran was seen and examined today at bedside in the ICU. Her was present. She is POD 1 after resection of intracranial mass located in the left midline region. She has expressive and receptive aphasia with right side hemiplegia. No reported seizures. Objective - Vital Signs/Intake and Output Vital Signs (last 24 hours): Temp Pulse Resp BP Pulse Ox 98.5 F 95 H 21 159/82 H 97 02/11/17 08:00 02/11/17 15:00 02/11/17 15:00 02/11/17 14:46 02/11/17 15:00 Intake and Output: 02/11/17 02/11/17 06:59 18:59 Intake Total 1040 720 Output Total 1160 395 Balance -120 325 - Medications Medications: Current Medications Acetaminophen (Tylenol 325mg Tab) 650 mg PO Q6 PRN PRN Reason: Pain, moderate (4-7) Last Admin: 02/07/17 16:14 Dose: 650 mg Dexamethasone (Decadron Inj) 6 mg IVP Q6H [facility] Last Admin: 02/11/17 09:56 Dose: 6 mg Diphenhydramine HCl (Benadryl) 12.5 mg IVP Q12 PRN PRN Reason: Allergy symptoms Last Admin: 02/09/17 17:42 Dose: 12.5 mg Famotidine (Pepcid) 20 mg IVP DAILY [facility] Last Admin: 02/09/17 09:05 Dose: 20 mg Levetiracetam 500 mg/ Sodium (Chloride) 105 mls @ 420 mls/hr IVPB Q12H [facility] Last Admin: 02/11/17 05:08 Dose: 420 mls/hr Potassium Chloride/Dextrose/Sod Cl (Potassium Chl 20 Meq In D5-1/2ns) 1,000 mls @ 80 mls/hr IV .[id number] [facility] Last Admin: 02/11/17 02:38 Dose: 80 mls/hr Ondansetron HCl (Zofran Inj) 4 mg IVP Q4 PRN PRN Reason: Nausea/Vomiting Last Admin: 02/02/17 11:31 Dose: 4 mg - Labs Labs: 02/11/17 06:14 02/11/17 06:14 PT 11.5 SECONDS (9.7-12.2) 02/01/17 16:23 INR 1.0 02/01/17 16:23 APTT 28 SECONDS (21-34) 02/09/17 11:29 - Neurological Exam Neurological Exam: Alert, Altered Neuro motor strength exam: Left Upper Extremity: 4, Right Upper Extremity: 0, Left Lower Extremity: 4, Right Lower Extremity: 2/1 Additional comments: Does not follow commands appropriately. Assessment and Plan (1) Seizure disorder, focal motor Assessment & Plan: Continue Keppra 500 mg IV Q12 hours for seizure prophylaxis. No further recommendations at this time. Continue neurosurgical follow-up. Status: Acute (2) Right sided weakness Assessment & Plan: Likely due to mass effect from tumor and post-surgical edema. PT/OT eval and treatment is recommended once the patient is stable. Status: Resolved
[2017-02-12] MEDS: Dexamethasone 4 mg/1 ml IVP SCH ×5 (04:40→23:21)
[2017-02-12] MEDS: levETIRAcetam 500 MG in Sodium Chloride 0.9% 100 ML IVPB SCH ×2 (04:41→16:49)
[2017-02-12] MEDS: Potassium Ch 20mEq in D5-1/2NS 1,000 ML IV SCH ×2 (06:23→19:30)
[2017-02-12 06:44] LABS: BASO % 0.1 % (0.0-2.0); HEMATOCRIT 41.5 % (34.0-47.0); LYMPH # 1.4 K/uL (1.0-4.3); LYMPH % 8.7 % (20.0-40.0); MEAN CELL VOLUME 90.1 fL (81.0-99.0); MEAN CORPUSCULAR HEMOGLOBIN 30.6 pg (27.0-31.0); MEAN CORPUSCULAR HGB CONC 33.9 g/dL (33.0-37.0); MEAN PLATELET VOLUME 8.7 fL (7.2-11.7); MONO # 0.7 K/uL (0.0-0.8); MONO % 4.4 % (0.0-10.0); PLATELET COUNT 307 K/uL (130-400); RED CELL DISTRIBUTION WIDTH 13.5 % (11.5-14.5); WHITE BLOOD COUNT 16.5 K/uL (4.8-10.8)
[2017-02-12 07:02] LABS: CHLORIDE 104 mmol/L (98-107); SODIUM 140 mmol/L (132-148)
[2017-02-12 07:04] LABS: ALB/GLOB RATIO 1.3 (1.0-2.1); ALKALINE PHOSPHATASE 44 U/L (38-126); ALT/SGPT 39 U/L (9-52); AST/SGOT 20 U/L (14-36); BILIRUBIN,TOTAL 0.9 mg/dL (0.2-1.3); BLOOD UREA NITROGEN 14 mg/dL (7-17); CARBON DIOXIDE 24 mmol/L (22-30); GFR AFRICAN-AMERICAN > 60; GLUCOSE,RANDOM 153 mg/dL (65-105); TOTAL PROTEIN 6.6 g/dL (6.3-8.3)
[2017-02-12 07:05] LABS: CALCIUM 9.5 mg/dl (8.6-10.4); MAGNESIUM 2.2 mg/dL (1.6-2.3); PHOSPHOROUS 2.5 mg/dL (2.5-4.5)
--- NOTE | 2017-02-12 07:15 | CP.CCUPN ---
<Wilman Ybarra - Last Filed: 02/12/17 14:29> CCU Subjective - Physician Review Subjective (Free Text): Patient seen and examined at bedside with son present. Per son, patient awake, responds intermittently to commands. Appears to have partial receptive and expressive aphasia. Sill unable to move right arm/right leg since procedure. ROS unobtainable as patient is non-verbal. 02/12/17 14:29 CCU Objective - Vital Signs / Intake & Output Vital Signs (Last 4 hours): Vital Signs Temp Pulse Resp BP Pulse Ox 02/12/17 07:00 82 16 97 02/12/17 06:46 74 20 144/86 96 02/12/17 06:30 93 H 20 96 02/12/17 06:01 95 H 19 155/77 H 95 02/12/17 06:00 96 H 21 96 02/12/17 05:46 106 H 17 182/94 H 97 02/12/17 05:30 75 18 95 02/12/17 05:00 77 19 95 02/12/17 04:46 102 H 14 165/89 H 96 02/12/17 04:30 77 19 96 02/12/17 04:00 98.8 F 100 H 19 95 02/12/17 03:46 76 18 159/97 H 96 02/12/17 03:30 77 19 96 Intake and Output (Last 8hrs): Intake & Output 02/11/17 02/12/17 02/12/17 22:59 06:59 14:59 Intake Total 740 640 80 Output Total 630 650 Balance 110 -10 80 Intake: Intake, IV Amount 740 640 80 Right Hand 740 640 80 Output: Urine 630 650 Urethral (Nugent) 630 650 Other: # Bowel Movements 0 - Physical Exam Head: Positive for: Other (s/p neurosurgery in occiptal lobe, dressing c/d/i) Pupils: Positive for: PERRL Extroacular Muscles: Positive for: EOMI Respiratory/Chest: Positive for: Clear to Auscultation Cardiovascular: Positive for: Regular Rate and Rhythm, Normal S1, S2 Abdomen: Positive for: Normal Bowel Sounds. Negative for: Distention Upper Extremity: Negative for: Edema Lower Extremity: Positive for: Other (Left Upper Extremity: 5, Right Upper Extremity: 3, Left Lower Extremity: 5, Right Lower Extremity: 3). Negative for : Edema Neurological: Positive for: Other (0/5 motor strength in right arm and right leg ). Negative for: Speech Normal Skin: Positive for: Warm, Dry, Normal Color - Medications Active Medications: Active Medications Generic Name Dose Route Start Last Admin Trade Name Freq PRN Reason Stop Dose Admin Acetaminophen 650 mg 02/02/17 13:24 02/07/17 16:14 Tylenol 325mg Tab PO 650 mg Q6 PRN Administration Pain, moderate (4-7) Dexamethasone 6 mg 02/10/17 10:45 02/12/17 04:40 Decadron Inj IVP 6 mg Q6H VIKASH Administration Diphenhydramine HCl 12.5 mg 02/09/17 16:57 02/09/17 17:42 Benadryl IVP 12.5 mg Q12 PRN Administration Allergy symptoms Famotidine 20 mg 02/02/17 10:00 02/11/17 17:28 Pepcid IVP 20 mg DAILY VIKASH Administration Levetiracetam 500 mg/ Sodium 105 mls @ 420 mls/hr 02/02/17 05:00 02/12/17 04: 41 Chloride IVPB 420 mls/hr Q12H VIKASH Administration Potassium Chloride/Dextrose/Sod Cl 1,000 mls @ 80 mls/hr 02/10/17 10:45 02/12 06:23 Potassium Chl 20 Meq In D5-1/2ns IV 80 mls/hr .[id number] VIKASH Administration Ondansetron HCl 4 mg 02/02/17 11:18 02/02/17 11:31 Zofran Inj IVP 4 mg Q4 PRN Administration Nausea/Vomiting - Patient Studies Lab Studies: Microbiology Studies 02/10/17 Unknown MRSA Culture (Admit) - Final Naris MRSA NOT DETECTED Lab Studies 02/12/17 02/11/17 02/11/17 Range/Units 06:40 21:35 16:08 WBC 16.5 H (4.8-10.8) K/uL RBC 4.60 (3.80-5.20) Mil/uL Hgb 14.1 (11.0-16.0) g/dL Hct 41.5 (34.0-47.0) % MCV 90.1 (81.0-99.0) fL MCH 30.6 (27.0-31.0) pg MCHC 33.9 (33.0-37.0) g/dL RDW 13.5 (11.5-14.5) % Plt Count 307 (130-400) K/uL MPV 8.7 (7.2-11.7) fL Neut % (Auto) 86.8 H (50.0-75.0) % Lymph % (Auto) 8.7 L (20.0-40.0) % Hill % (Auto) 4.4 (0.0-10.0) % Eos % (Auto) 0.0 (0.0-4.0) % Baso % (Auto) 0.1 (0.0-2.0) % Neut # 14.3 H (1.8-7.0) K/uL Lymph # 1.4 (1.0-4.3) K/uL Hill # 0.7 (0.0-0.8) K/uL Eos # 0.0 (0.0-0.7) K/uL Baso # 0.0 (0.0-0.2) K/uL Neutrophils % (Manual) (50-75) % Lymphocytes % (Manual) (20-40) % Monocytes % (Manual) (0-10) % Platelet Estimate (NORMAL) RBC Morphology POC Glucose (mg/dL) 184 H 197 H (65-110) mg/dL 02/11/17 02/11/17 02/11/17 Range/Units 10:54 07:12 06:14 WBC (4.8-10.8) K/uL RBC (3.80-5.20) Mil/uL Hgb (11.0-16.0) g/dL Hct (34.0-47.0) % MCV (81.0-99.0) fL MCH (27.0-31.0) pg MCHC (33.0-37.0) g/dL RDW (11.5-14.5) % Plt Count (130-400) K/uL MPV (7.2-11.7) fL Neut % (Auto) (50.0-75.0) % Lymph % (Auto) (20.0-40.0) % Hill % (Auto) (0.0-10.0) % Eos % (Auto) (0.0-4.0) % Baso % (Auto) (0.0-2.0) % Neut # (1.8-7.0) K/uL Lymph # (1.0-4.3) K/uL Hill # (0.0-0.8) K/uL Eos # (0.0-0.7) K/uL Baso # (0.0-0.2) K/uL Neutrophils % (Manual) 88 H (50-75) % Lymphocytes % (Manual) 2 L (20-40) % Monocytes % (Manual) 4 (0-10) % Platelet Estimate Normal (NORMAL) RBC Morphology Normal POC Glucose (mg/dL) 202 H 202 H (65-110) mg/dL Laboratory Results - last 24 hr 02/11/17 02/11/17 02/11/17 06:14 07:12 10:54 WBC RBC Hgb Hct MCV MCH MCHC RDW Plt Count MPV Neut % (Auto) Lymph % (Auto) Hill % (Auto) Eos % (Auto) Baso % (Auto) Neut # Lymph # Hill # Eos # Baso # Neutrophils % (Manual) 88 H Lymphocytes % (Manual) 2 L Monocytes % (Manual) 4 Platelet Estimate Normal RBC Morphology Normal POC Glucose (mg/dL) 202 H 202 H 02/11/17 02/11/17 02/12/17 16:08 21:35 06:40 WBC 16.5 H RBC 4.60 Hgb 14.1 Hct 41.5 MCV 90.1 MCH 30.6 MCHC 33.9 RDW 13.5 Plt Count 307 MPV 8.7 Neut % (Auto) 86.8 H Lymph % (Auto) 8.7 L Hill % (Auto) 4.4 Eos % (Auto) 0.0 Baso % (Auto) 0.1 Neut # 14.3 H Lymph # 1.4 Hill # 0.7 Eos # 0.0 Baso # 0.0 Neutrophils % (Manual) Lymphocytes % (Manual) Monocytes % (Manual) Platelet Estimate RBC Morphology POC Glucose (mg/dL) 197 H 184 H Fingerstick Blood Sugar Results: 184 Review of Systems - Review of Systems Systems not reviewed;Unavailable: Altered Mental Status Critical Care Progress Note - Nutrition Nutrition: Nutrition Category Date Time Status NPO Diet [DIET] Diets 02/10/17 Breakfast Active Assessment/Plan - Assessment and Plan (Free Text) Assessment: Patient is a 62 yo F s/p brain biopsy and suspected glioblastoma multiforme in medial aspect of frontal lobe Today 02/12/17: Clinically same, aphasia slightly improved. Speech and swallow therapist recommends thin liquid diet, will start. Nugent discontinued. Tapering of steroid started. Likely transfer out of ICU tomorrow. Neuro: right-sided hemiplegia likely 2/2 due to mass effect from tumor and post- surgical edema - s/p brain biopsy and suspected glioblastoma multiforme in medial aspect of frontal lobe - Intra-operative and post-operatively patient developed a weakness in the right side - Neurology, Dr Iverson, on board - Neurosurgery, Dr Weiss, on board - MRI brain: enhancing mass lesion from medial aspect left frontal lobe - CT C/A/P: no pattern of malignancy appreciated - - Keppra 500mg IV Q 12hours for seizure prophylaxis - Ativan 1mg IVP Q 4 H PRN seizure activity MSK: palpable breast mass; rash of left arm - F/U Breast US/Mammo - Hydrocortisone cream 0.5% PRN Prophylaxis: Lovenox 40mg SC daily - on hold per neuro surgery Ativan 1mg IVQ 4h PRN seizure activity Aspiration precautions Seizure precautions PT/OT eval and treatment Medical decision maker: there is no official healthy proxy; per son Maldonado, they will make decision-making for mother together. Her sister Noemy Albarran left her phone number [phone]. <Cain Stevens - Last Filed: 02/12/17 16:06> CCU Objective - Vital Signs / Intake & Output Vital Signs (Last 4 hours): Vital Signs Pulse Resp BP Pulse Ox 02/12/17 14:00 75 21 162/74 H 96 02/12/17 13:00 72 19 154/74 H 95 Intake and Output (Last 8hrs): Intake & Output 02/12/17 02/12/17 02/12/17 06:59 14:59 22:59 Intake Total 640 640 Output Total 650 250 Balance -10 390 Intake: Intake, IV Amount 640 640 Right Hand 640 640 Output: Urine 650 250 Urethral (Nugent) 650 250 - Medications Active Medications: Active Medications Generic Name Dose Route Start Last Admin Trade Name Freq PRN Reason Stop Dose Admin Acetaminophen 650 mg 02/02/17 13:24 02/12/17 14:44 Tylenol 325mg Tab PO 650 mg Q6 PRN Administration Pain, moderate (4-7) Dexamethasone 4 mg 02/12/17 11:06 02/12/17 11:56 Decadron Inj IVP 02/16/17 23:59 Not Given Q6H VIKASH Dexamethasone 2 mg 02/17/17 12:00 Decadron Inj IVP 02/20/17 12:00 Q6 VIKASH Dexamethasone 2 mg 02/21/17 22:00 Decadron Inj IVP 02/25/17 12:00 Q12 VIKASH Diphenhydramine HCl 12.5 mg 02/09/17 16:57 02/09/17 17:42 Benadryl IVP 12.5 mg Q12 PRN Administration Allergy symptoms Famotidine 20 mg 02/02/17 10:00 02/12/17 10:11 Pepcid IVP 20 mg DAILY VIKASH Administration Levetiracetam 500 mg/ Sodium 105 mls @ 420 mls/hr 02/02/17 05:00 02/12/17 04: 41 Chloride IVPB 420 mls/hr Q12H [facility]KASH Administration Potassium Chloride/Dextrose/Sod Cl 1,000 mls @ 80 mls/hr 02/10/17 10:45 02/12 06:23 Potassium Chl 20 Meq In D5-1/2ns IV 80 mls/hr .[id number] [facility]KASH Administration Ondansetron HCl 4 mg 02/02/17 11:18 02/02/17 11:31 Zofran Inj IVP 4 mg Q4 PRN Administration Nausea/Vomiting - Patient Studies Lab Studies: Microbiology Studies 02/10/17 Unknown MRSA Culture (Admit) - Final Naris MRSA NOT DETECTED Lab Studies 02/12/17 02/12/17 02/12/17 Range/Units 11:17 07:18 06:40 WBC 16.5 H (4.8-10.8) K/uL RBC 4.60 (3.80-5.20) Mil/uL Hgb 14.1 (11.0-16.0) g/dL Hct 41.5 (34.0-47.0) % MCV 90.1 (81.0-99.0) fL MCH 30.6 (27.0-31.0) pg MCHC 33.9 (33.0-37.0) g/dL RDW 13.5 (11.5-14.5) % Plt Count 307 (130-400) K/uL MPV 8.7 (7.2-11.7) fL Neut % (Auto) 86.8 H (50.0-75.0) % Lymph % (Auto) 8.7 L (20.0-40.0) % Hill % (Auto) 4.4 (0.0-10.0) % Eos % (Auto) 0.0 (0.0-4.0) % Baso % (Auto) 0.1 (0.0-2.0) % Neut # 14.3 H (1.8-7.0) K/uL Lymph # 1.4 (1.0-4.3) K/uL Hill # 0.7 (0.0-0.8) K/uL Eos # 0.0 (0.0-0.7) K/uL Baso # 0.0 (0.0-0.2) K/uL Neutrophils % (Manual) 89 H (50-75) % Lymphocytes % (Manual) 8 L (20-40) % Monocytes % (Manual) 3 (0-10) % Platelet Estimate Normal (NORMAL) RBC Morphology Normal Sodium (132-148) mmol/L Potassium (3.6-5.2) mmol/L Chloride (98-107) mmol/L Carbon Dioxide (22-30) mmol/L Anion Gap (10-20) BUN (7-17) mg/dL Creatinine (0.7-1.2) MG/DL Est GFR ( Amer) Est GFR (Non-Af Amer) POC Glucose (mg/dL) 177 H 183 H (65-110) mg/dL Random Glucose (65-105) mg/dL Calcium (8.6-10.4) mg/dl Phosphorus (2.5-4.5) mg/dL Magnesium (1.6-2.3) mg/dL Total Bilirubin (0.2-1.3) mg/dL AST (14-36) U/L ALT (9-52) U/L Alkaline Phosphatase (38-126) U/L Total Protein (6.3-8.3) g/dL Albumin (3.5-5.0) g/dL Globulin (2.2-3.9) gm/dL Albumin/Globulin Ratio (1.0-2.1) 02/12/17 02/11/17 02/11/17 Range/Units 06:36 21:35 16:08 WBC (4.8-10.8) K/uL RBC (3.80-5.20) Mil/uL Hgb (11.0-16.0) g/dL Hct (34.0-47.0) % MCV (81.0-99.0) fL MCH (27.0-31.0) pg MCHC (33.0-37.0) g/dL RDW (11.5-14.5) % Plt Count (130-400) K/uL MPV (7.2-11.7) fL Neut % (Auto) (50.0-75.0) % Lymph % (Auto) (20.0-40.0) % Hill % (Auto) (0.0-10.0) % Eos % (Auto) (0.0-4.0) % Baso % (Auto) (0.0-2.0) % Neut # (1.8-7.0) K/uL Lymph # (1.0-4.3) K/uL Hill # (0.0-0.8) K/uL Eos # (0.0-0.7) K/uL Baso # (0.0-0.2) K/uL Neutrophils % (Manual) (50-75) % Lymphocytes % (Manual) (20-40) % Monocytes % (Manual) (0-10) % Platelet Estimate (NORMAL) RBC Morphology Sodium 140 (132-148) mmol/L Potassium 4.0 (3.6-5.2) mmol/L Chloride 104 (98-107) mmol/L Carbon Dioxide 24 (22-30) mmol/L Anion Gap 16 (10-20) BUN 14 (7-17) mg/dL Creatinine 0.6 L (0.7-1.2) MG/DL Est GFR ( Amer) > 60 Est GFR (Non-Af Amer) > 60 POC Glucose (mg/dL) 184 H 197 H (65-110) mg/dL Random Glucose 153 H (65-105) mg/dL Calcium 9.5 (8.6-10.4) mg/dl Phosphorus 2.5 (2.5-4.5) mg/dL Magnesium 2.2 (1.6-2.3) mg/dL Total Bilirubin 0.9 (0.2-1.3) mg/dL AST 20 (14-36) U/L ALT 39 (9-52) U/L Alkaline Phosphatase 44 (38-126) U/L Total Protein 6.6 (6.3-8.3) g/dL Albumin 3.7 (3.5-5.0) g/dL Globulin 2.9 (2.2-3.9) gm/dL Albumin/Globulin Ratio 1.3 (1.0-2.1) Laboratory Results - last 24 hr 02/11/17 02/11/17 02/12/17 16:08 21:35 06:36 WBC RBC Hgb Hct MCV MCH MCHC RDW Plt Count MPV Neut % (Auto) Lymph % (Auto) Hill % (Auto) Eos % (Auto) Baso % (Auto) Neut # Lymph # Hill # Eos # Baso # Neutrophils % (Manual) Lymphocytes % (Manual) Monocytes % (Manual) Platelet Estimate RBC Morphology Sodium 140 Potassium 4.0 Chloride 104 Carbon Dioxide 24 Anion Gap 16 BUN 14 Creatinine 0.6 L Est GFR ( Amer) > 60 Est GFR (Non-Af Amer) > 60 POC Glucose (mg/dL) 197 H 184 H Random Glucose 153 H Calcium 9.5 Phosphorus 2.5 Magnesium 2.2 Total Bilirubin 0.9 AST 20 ALT 39 Alkaline Phosphatase 44 Total Protein 6.6 Albumin 3.7 Globulin 2.9 Albumin/Globulin Ratio 1.3 02/12/17 02/12/17 02/12/17 06:40 07:18 11:17 WBC 16.5 H RBC 4.60 Hgb 14.1 Hct 41.5 MCV 90.1 MCH 30.6 MCHC 33.9 RDW 13.5 Plt Count 307 MPV 8.7 Neut % (Auto) 86.8 H Lymph % (Auto) 8.7 L Hill % (Auto) 4.4 Eos % (Auto) 0.0 Baso % (Auto) 0.1 Neut # 14.3 H Lymph # 1.4 Hill # 0.7 Eos # 0.0 Baso # 0.0 Neutrophils % (Manual) 89 H Lymphocytes % (Manual) 8 L Monocytes % (Manual) 3 Platelet Estimate Normal RBC Morphology Normal Sodium Potassium Chloride Carbon Dioxide Anion Gap BUN Creatinine Est GFR ( Amer) Est GFR (Non-Af Amer) POC Glucose (mg/dL) 183 H 177 H Random Glucose Calcium Phosphorus Magnesium Total Bilirubin AST ALT Alkaline Phosphatase Total Protein Albumin Globulin Albumin/Globulin Ratio Critical Care Progress Note - Nutrition Nutrition: Nutrition Category Date Time Status Dysphagia/Modified Consistency Diet [DIET] Diets 02/12/17 Dinner Active Attending/Attestation - Attestation I have personally seen and examined this patient.: Yes I have fully participated in the care of the patient.: Yes I have reviewed all pertinent clinical information: Yes Notes (Text): 02/12/17 16:05 Patient seen and examined in the intensive care unit. Case discussed with the staff in the morning rounds. Seen by neurosurgery and agreed to transfer to floor tomorrow if no change in patient condition Continue present treatment for now
[2017-02-12 08:32] LABS: NEUTROPHIL 89 % (50-75); TOTAL CELLS COUNTED 100
--- NOTE | 2017-02-12 11:09 | CP.PCM.PN ---
Subjective - Date & Time of Evaluation Date of Evaluation: 02/12/17 Time of Evaluation: 11:06 - Subjective Subjective: remains awake and alert aphasia slightly better no change in r hemiplegia Path still pending dec and slowly taper steroids oob PT/Ot/ speech therapy called D/c milagros Objective - Vital Signs/Intake and Output Vital Signs (last 24 hours): Temp Pulse Resp BP Pulse Ox 98.4 F 97 H 19 137/67 97 02/12/17 08:00 02/12/17 10:00 02/12/17 10:00 02/12/17 09:47 02/12/17 10:00 Intake and Output: 02/12/17 02/12/17 06:59 18:59 Intake Total 1040 320 Output Total 1125 250 Balance -85 70 - Medications Medications: Current Medications Acetaminophen (Tylenol 325mg Tab) 650 mg PO Q6 PRN PRN Reason: Pain, moderate (4-7) Last Admin: 02/07/17 16:14 Dose: 650 mg Dexamethasone (Decadron Inj) 6 mg IVP Q6H [facility] Last Admin: 02/12/17 10:10 Dose: 6 mg Diphenhydramine HCl (Benadryl) 12.5 mg IVP Q12 PRN PRN Reason: Allergy symptoms Last Admin: 02/09/17 17:42 Dose: 12.5 mg Famotidine (Pepcid) 20 mg IVP DAILY [facility] Last Admin: 02/12/17 10:11 Dose: 20 mg Levetiracetam 500 mg/ Sodium (Chloride) 105 mls @ 420 mls/hr IVPB Q12H [facility] Last Admin: 02/12/17 04:41 Dose: 420 mls/hr Potassium Chloride/Dextrose/Sod Cl (Potassium Chl 20 Meq In D5-1/2ns) 1,000 mls @ 80 mls/hr IV .[id number] [facility] Last Admin: 02/12/17 06:23 Dose: 80 mls/hr Ondansetron HCl (Zofran Inj) 4 mg IVP Q4 PRN PRN Reason: Nausea/Vomiting Last Admin: 02/02/17 11:31 Dose: 4 mg - Labs Labs: 02/12/17 06:40 02/12/17 06:36 PT 11.5 SECONDS (9.7-12.2) 02/01/17 16:23 INR 1.0 02/01/17 16:23 APTT 28 SECONDS (21-34) 02/09/17 11:29
--- NOTE | 2017-02-12 13:13 | CP.PCM.PN ---
Subjective - Date & Time of Evaluation Date of Evaluation: 02/12/17 Time of Evaluation: 13:00 - Subjective Subjective: Patient was seen and examined at bedside in ICU Patient is awake alert but nonverbal Family is present at bedside. Objective - Vital Signs/Intake and Output Vital Signs (last 24 hours): Temp Pulse Resp BP Pulse Ox 98.4 F 97 H 19 137/67 97 02/12/17 08:00 02/12/17 10:00 02/12/17 10:00 02/12/17 09:47 02/12/17 10:00 Intake and Output: 02/12/17 02/12/17 06:59 18:59 Intake Total 1040 320 Output Total 1125 250 Balance -85 70 - Medications Medications: Current Medications Acetaminophen (Tylenol 325mg Tab) 650 mg PO Q6 PRN PRN Reason: Pain, moderate (4-7) Last Admin: 02/07/17 16:14 Dose: 650 mg Dexamethasone (Decadron Inj) 4 mg IVP Q6H [facility] Stop: 02/16/17 23:59 Last Admin: 02/12/17 11:56 Dose: Not Given Dexamethasone (Decadron Inj) 2 mg IVP Q6 [facility] Stop: 02/20/17 12:00 Dexamethasone (Decadron Inj) 2 mg IVP Q12 [facility] Stop: 02/25/17 12:00 Diphenhydramine HCl (Benadryl) 12.5 mg IVP Q12 PRN PRN Reason: Allergy symptoms Last Admin: 02/09/17 17:42 Dose: 12.5 mg Famotidine (Pepcid) 20 mg IVP DAILY [facility] Last Admin: 02/12/17 10:11 Dose: 20 mg Levetiracetam 500 mg/ Sodium (Chloride) 105 mls @ 420 mls/hr IVPB Q12H [facility] Last Admin: 02/12/17 04:41 Dose: 420 mls/hr Potassium Chloride/Dextrose/Sod Cl (Potassium Chl 20 Meq In D5-1/2ns) 1,000 mls @ 80 mls/hr IV .[id number] [facility] Last Admin: 02/12/17 06:23 Dose: 80 mls/hr Ondansetron HCl (Zofran Inj) 4 mg IVP Q4 PRN PRN Reason: Nausea/Vomiting Last Admin: 02/02/17 11:31 Dose: 4 mg - Labs Labs: 02/12/17 06:40 02/12/17 06:36 PT 11.5 SECONDS (9.7-12.2) 02/01/17 16:23 INR 1.0 02/01/17 16:23 APTT 28 SECONDS (21-34) 02/09/17 11:29 - Head Exam Additional comments: Surgical scar present on the scalp. - Eye Exam Eye Exam: PERRL - Neck Exam Neck Exam: Normal Inspection - Respiratory Exam Respiratory Exam: Clear to Ausculation Bilateral - Cardiovascular Exam Cardiovascular Exam: REGULAR RHYTHM, +S1, +S2 - GI/Abdominal Exam GI & Abdominal Exam: Soft. absent: Tenderness - Extremities Exam Extremities Exam: absent: Pedal Edema Assessment and Plan (1) Acute right-sided weakness Status: Acute (2) Brain mass Status: Acute (3) Focal seizures Status: Acute - Assessment and Plan (Free Text) Plan: Patient is status post excisional biopsy of the brain mass Follow-up the pathology report Patient has developed aphasia and a right-sided mohit-plegia Continue physical therapy daily Discussed with ICU team and agree with the management plan of the ICU team.
[2017-02-13] MEDS: levETIRAcetam 500 MG in Sodium Chloride 0.9% 100 ML IVPB SCH ×2 (05:35→17:23)
[2017-02-13] MEDS: Dexamethasone 4 mg/1 ml IVP SCH ×4 (05:35→22:53)
[2017-02-13] MEDS: Potassium Ch 20mEq in D5-1/2NS 1,000 ML IV SCH (05:38)
[2017-02-13 06:12] LABS: BASO % 0.1 % (0.0-2.0); HEMATOCRIT 42.6 % (34.0-47.0); LYMPH # 1.4 K/uL (1.0-4.3); LYMPH % 11.4 % (20.0-40.0); MEAN CELL VOLUME 89.5 fL (81.0-99.0); MEAN CORPUSCULAR HEMOGLOBIN 30.2 pg (27.0-31.0); MEAN CORPUSCULAR HGB CONC 33.8 g/dL (33.0-37.0); MEAN PLATELET VOLUME 8.5 fL (7.2-11.7); MONO # 0.5 K/uL (0.0-0.8); MONO % 4.3 % (0.0-10.0); NRBC % 0.1 % (0.0-2.0); RED CELL DISTRIBUTION WIDTH 13.3 % (11.5-14.5); WHITE BLOOD COUNT 12.2 K/uL (4.8-10.8)
[2017-02-13 06:32] LABS: ALB/GLOB RATIO 1.1 (1.0-2.1); ALKALINE PHOSPHATASE 42 U/L (38-126); ALT/SGPT 47 U/L (9-52); AST/SGOT 39 U/L (14-36); BILIRUBIN,TOTAL 0.4 mg/dL (0.2-1.3); BLOOD UREA NITROGEN 18 mg/dL (7-17); CALCIUM 9.2 mg/dl (8.6-10.4); CARBON DIOXIDE 22 mmol/L (22-30); CHLORIDE 103 mmol/L (98-107); GFR AFRICAN-AMERICAN > 60; GLUCOSE,RANDOM 167 mg/dL (65-105); MAGNESIUM 2.2 mg/dL (1.6-2.3); PHOSPHOROUS 3.2 mg/dL (2.5-4.5); POTASSIUM 4.2 mmol/L (3.6-5.2); SODIUM 139 mmol/L (132-148); TOTAL PROTEIN 6.6 g/dL (6.3-8.3)
--- NOTE | 2017-02-13 07:35 | CP.PCM.PN ---
Subjective - Date & Time of Evaluation Date of Evaluation: 02/13/17 Time of Evaluation: 07:35 - Subjective Subjective: neuro status quo path pending ok to transfer to floor and adv act when med clear ok to transfer to subacute Objective - Vital Signs/Intake and Output Vital Signs (last 24 hours): Temp Pulse Resp BP Pulse Ox 98 F 92 H 22 154/81 H 95 02/13/17 03:20 02/13/17 06:04 02/13/17 06:04 02/13/17 06:04 02/13/17 06:04 Intake and Output: 02/13/17 02/13/17 06:59 18:59 Intake Total 960 Output Total 940 Balance 20 - Medications Medications: Current Medications Acetaminophen (Tylenol 325mg Tab) 650 mg PO Q6 PRN PRN Reason: Pain, moderate (4-7) Last Admin: 02/12/17 14:44 Dose: 650 mg Dexamethasone (Decadron Inj) 4 mg IVP Q6H [facility] Stop: 02/16/17 23:59 Last Admin: 02/13/17 05:35 Dose: 4 mg Dexamethasone (Decadron Inj) 2 mg IVP Q6 [facility] Stop: 02/20/17 12:00 Dexamethasone (Decadron Inj) 2 mg IVP Q12 [facility] Stop: 02/25/17 12:00 Diphenhydramine HCl (Benadryl) 12.5 mg IVP Q12 PRN PRN Reason: Allergy symptoms Last Admin: 02/09/17 17:42 Dose: 12.5 mg Famotidine (Pepcid) 20 mg IVP DAILY [facility] Last Admin: 02/12/17 10:11 Dose: 20 mg Levetiracetam 500 mg/ Sodium (Chloride) 105 mls @ 420 mls/hr IVPB Q12H [facility] Last Admin: 02/13/17 05:35 Dose: 420 mls/hr Potassium Chloride/Dextrose/Sod Cl (Potassium Chl 20 Meq In D5-1/2ns) 1,000 mls @ 80 mls/hr IV .[id number] [facility] Last Admin: 02/13/17 05:38 Dose: 80 mls/hr Ondansetron HCl (Zofran Inj) 4 mg IVP Q4 PRN PRN Reason: Nausea/Vomiting Last Admin: 02/02/17 11:31 Dose: 4 mg - Labs Labs: 02/13/17 06:02 02/13/17 06:02 PT 11.5 SECONDS (9.7-12.2) 02/01/17 16:23 INR 1.0 02/01/17 16:23 APTT 28 SECONDS (21-34) 02/09/17 11:29
--- NOTE | 2017-02-13 13:17 | CP.PCM.PN ---
Subjective - Date & Time of Evaluation Date of Evaluation: 02/13/17 Time of Evaluation: 13:00 - Subjective Subjective: patient was seen and examined at bedside in ICU. Mild improvement noted in patient's aphasia. Patient continues to have right-sided hemiplegia. Objective - Vital Signs/Intake and Output Vital Signs (last 24 hours): Temp Pulse Resp BP Pulse Ox 98.8 F 100 H 18 156/87 H 95 02/13/17 08:00 02/13/17 10:00 02/13/17 10:00 02/13/17 10:00 02/13/17 10:00 Intake and Output: 02/13/17 02/13/17 06:59 18:59 Intake Total 960 320 Output Total 940 Balance 20 320 - Medications Medications: Current Medications Acetaminophen (Tylenol 325mg Tab) 650 mg PO Q6 PRN PRN Reason: Pain, moderate (4-7) Last Admin: 02/12/17 14:44 Dose: 650 mg Dexamethasone (Decadron Inj) 4 mg IVP Q6H [facility] Stop: 02/16/17 23:59 Last Admin: 02/13/17 05:35 Dose: 4 mg Dexamethasone (Decadron Inj) 2 mg IVP Q6 [facility] Stop: 02/20/17 12:00 Dexamethasone (Decadron Inj) 2 mg IVP Q12 [facility] Stop: 02/25/17 12:00 Diphenhydramine HCl (Benadryl) 12.5 mg IVP Q12 PRN PRN Reason: Allergy symptoms Last Admin: 02/09/17 17:42 Dose: 12.5 mg Famotidine (Pepcid) 20 mg IVP DAILY [facility] Last Admin: 02/13/17 09:54 Dose: 20 mg Levetiracetam 500 mg/ Sodium (Chloride) 105 mls @ 420 mls/hr IVPB Q12H [facility] Last Admin: 02/13/17 05:35 Dose: 420 mls/hr Ondansetron HCl (Zofran Inj) 4 mg IVP Q4 PRN PRN Reason: Nausea/Vomiting Last Admin: 02/02/17 11:31 Dose: 4 mg - Labs Labs: 02/13/17 06:02 02/13/17 06:02 PT 11.5 SECONDS (9.7-12.2) 02/01/17 16:23 INR 1.0 02/01/17 16:23 APTT 28 SECONDS (21-34) 02/09/17 11:29 - Head Exam Head Exam: ATRAUMATIC, NORMOCEPHALIC - Eye Exam Eye Exam: Normal appearance - ENT Exam ENT Exam: Mucous Membranes Moist - Cardiovascular Exam Cardiovascular Exam: REGULAR RHYTHM, +S1, +S2 - GI/Abdominal Exam GI & Abdominal Exam: Soft. absent: Tenderness - Extremities Exam Extremities Exam: absent: Pedal Edema - Neurological Exam Neuro motor strength exam: Left Upper Extremity: 5, Right Upper Extremity: 0, Left Lower Extremity: 5, Right Lower Extremity: 0 Assessment and Plan (1) Acute right-sided weakness Status: Acute (2) Brain mass Status: Acute (3) Focal seizures Status: Acute - Assessment and Plan (Free Text) Plan: current medical management as per ICU team. Patient is on dexamethasone and Keppra. discussed with neurosurgery discussed with patient's family at bedside next Continue current medical management.
--- NOTE | 2017-02-14 02:28 | CP.PCM.PN ---
Subjective - Date & Time of Evaluation Date of Evaluation: 02/13/17 Time of Evaluation: 18:00 - Subjective Subjective: Appears comfortable Objective - Vital Signs/Intake and Output Vital Signs (last 24 hours): Temp Pulse Resp BP Pulse Ox 98.6 F 101 H 20 141/63 97 02/13/17 23:35 02/13/17 23:35 02/13/17 23:35 02/13/17 23:35 02/13/17 23:35 Intake and Output: 02/13/17 02/14/17 18:59 06:59 Intake Total 930 Balance 930 - Medications Medications: Current Medications Acetaminophen (Tylenol 325mg Tab) 650 mg PO Q6 PRN PRN Reason: Pain, moderate (4-7) Last Admin: 02/12/17 14:44 Dose: 650 mg Dexamethasone (Decadron Inj) 4 mg IVP Q6H [facility] Stop: 02/16/17 23:59 Last Admin: 02/13/17 22:53 Dose: 4 mg Dexamethasone (Decadron Inj) 2 mg IVP Q6 VIKASH Stop: 02/20/17 12:00 Dexamethasone (Decadron Inj) 2 mg IVP Q12 VIKASH Stop: 02/25/17 12:00 Diphenhydramine HCl (Benadryl) 12.5 mg IVP Q12 PRN PRN Reason: Allergy symptoms Last Admin: 02/09/17 17:42 Dose: 12.5 mg Famotidine (Pepcid) 20 mg IVP DAILY [facility] Last Admin: 02/13/17 09:54 Dose: 20 mg Levetiracetam 500 mg/ Sodium (Chloride) 105 mls @ 420 mls/hr IVPB Q12H VIKASH Last Admin: 02/13/17 17:23 Dose: 420 mls/hr Ondansetron HCl (Zofran Inj) 4 mg IVP Q4 PRN PRN Reason: Nausea/Vomiting Last Admin: 02/02/17 11:31 Dose: 4 mg - Labs Labs: 02/13/17 06:02 02/13/17 06:02 PT 11.5 SECONDS (9.7-12.2) 02/01/17 16:23 INR 1.0 02/01/17 16:23 APTT 28 SECONDS (21-34) 02/09/17 11:29 - Eye Exam Eye Exam: Normal appearance - ENT Exam ENT Exam: Mucous Membranes Dry - Respiratory Exam Respiratory Exam: NORMAL BREATHING PATTERN - Cardiovascular Exam Cardiovascular Exam: +S1, +S2 - GI/Abdominal Exam GI & Abdominal Exam: Normal Bowel Sounds Assessment and Plan (1) Brain mass Assessment & Plan: s/p excisional biopsy f/u path Status: Acute
[2017-02-14] MEDS: levETIRAcetam 500 MG in Sodium Chloride 0.9% 100 ML IVPB SCH ×2 (06:17→17:12)
[2017-02-14] MEDS: Dexamethasone 4 mg/1 ml IVP SCH ×4 (06:17→23:37)
--- NOTE | 2017-02-14 16:56 | CP.PCM.PN ---
<Maldonado Arguello - Last Filed: 02/14/17 16:56> Subjective - Date & Time of Evaluation Date of Evaluation: 02/14/17 Time of Evaluation: 16:53 - Subjective Subjective: PGY1 Note for Dr. Schilling HPI:Patient seen and examined at bedside. Patient denies any current pain or headache and reports she is doing well. Patient appears lethargic and upon questioning speaks softly and mumbles. Unable to get complete ROS Objective - Vital Signs/Intake and Output Vital Signs (last 24 hours): Temp Pulse Resp BP Pulse Ox 98.1 F 82 18 126/78 96 02/14/17 07:50 02/14/17 16:12 02/14/17 07:50 02/14/17 07:50 02/14/17 07:50 - Medications Medications: Current Medications Acetaminophen (Tylenol 325mg Tab) 650 mg PO Q6 PRN PRN Reason: Pain, moderate (4-7) Last Admin: 02/12/17 14:44 Dose: 650 mg Dexamethasone (Decadron Inj) 4 mg IVP Q6H [facility] Stop: 02/16/17 23:59 Last Admin: 02/14/17 10:13 Dose: 4 mg Dexamethasone (Decadron Inj) 2 mg IVP Q6 [facility] Stop: 02/20/17 12:00 Dexamethasone (Decadron Inj) 2 mg IVP Q12 [facility] Stop: 02/25/17 12:00 Diphenhydramine HCl (Benadryl) 12.5 mg IVP Q12 PRN PRN Reason: Allergy symptoms Last Admin: 02/09/17 17:42 Dose: 12.5 mg Famotidine (Pepcid) 20 mg IVP DAILY [facility] Last Admin: 02/14/17 10:13 Dose: 20 mg Levetiracetam 500 mg/ Sodium (Chloride) 105 mls @ 420 mls/hr IVPB Q12H [facility] Last Admin: 02/14/17 06:17 Dose: 420 mls/hr Ondansetron HCl (Zofran Inj) 4 mg IVP Q4 PRN PRN Reason: Nausea/Vomiting Last Admin: 02/02/17 11:31 Dose: 4 mg - Labs Labs: 02/13/17 06:02 02/13/17 06:02 PT 11.5 SECONDS (9.7-12.2) 02/01/17 16:23 INR 1.0 02/01/17 16:23 APTT 28 SECONDS (21-34) 02/09/17 11:29 - Constitutional Appears: Well, Non-toxic, No Acute Distress, Chronically Ill - Head Exam Head Exam: NORMAL INSPECTION - Eye Exam Eye Exam: EOMI - ENT Exam ENT Exam: Mucous Membranes Moist - Respiratory Exam Respiratory Exam: Clear to Ausculation Bilateral, NORMAL BREATHING PATTERN - Cardiovascular Exam Cardiovascular Exam: REGULAR RHYTHM - GI/Abdominal Exam GI & Abdominal Exam: Soft, Normal Bowel Sounds. absent: Distended, Guarding, Tenderness - Extremities Exam Extremities Exam: absent: Full ROM, Joint Swelling, Tenderness - Neurological Exam Neurological Exam: Alert, Awake, Oriented x3 Neuro motor strength exam: Left Upper Extremity: 5, Right Upper Extremity: 0, Left Lower Extremity: 5, Right Lower Extremity: 0 Additional comments: aphasic - Skin Skin Exam: Dry, Intact, Normal Color, Warm Assessment and Plan - Assessment and Plan (Free Text) Assessment: S/P Removal of Brain Mass * Aphasic * Cant move right side. No sensation. * Continue PT/OT * Case management says TCU at [facility] will take her for outpatient PT if she qualifies for medicare * Eating on her own * Off-loading boots * Needs a wheelchair <Abel Schilling - Last Filed: 02/14/17 17:12> Objective - Vital Signs/Intake and Output Vital Signs (last 24 hours): Temp Pulse Resp BP Pulse Ox 98.1 F 82 18 126/78 96 02/14/17 07:50 02/14/17 16:12 02/14/17 07:50 02/14/17 07:50 02/14/17 07:50 - Medications Medications: Current Medications Acetaminophen (Tylenol 325mg Tab) 650 mg PO Q6 PRN PRN Reason: Pain, moderate (4-7) Last Admin: 02/12/17 14:44 Dose: 650 mg Dexamethasone (Decadron Inj) 4 mg IVP Q6H [facility] Stop: 02/16/17 23:59 Last Admin: 02/14/17 10:13 Dose: 4 mg Dexamethasone (Decadron Inj) 2 mg IVP Q6 [facility] Stop: 02/20/17 12:00 Dexamethasone (Decadron Inj) 2 mg IVP Q12 [facility] Stop: 02/25/17 12:00 Diphenhydramine HCl (Benadryl) 12.5 mg IVP Q12 PRN PRN Reason: Allergy symptoms Last Admin: 02/09/17 17:42 Dose: 12.5 mg Famotidine (Pepcid) 20 mg IVP DAILY [facility] Last Admin: 02/14/17 10:13 Dose: 20 mg Levetiracetam 500 mg/ Sodium (Chloride) 105 mls @ 420 mls/hr IVPB Q12H [facility] Last Admin: 02/14/17 06:17 Dose: 420 mls/hr Ondansetron HCl (Zofran Inj) 4 mg IVP Q4 PRN PRN Reason: Nausea/Vomiting Last Admin: 02/02/17 11:31 Dose: 4 mg - Labs Labs: 02/13/17 06:02 02/13/17 06:02 PT 11.5 SECONDS (9.7-12.2) 02/01/17 16:23 INR 1.0 02/01/17 16:23 APTT 28 SECONDS (21-34) 02/09/17 11:29 Attending/Attestation - Attestation I have personally seen and examined this patient.: Yes I have fully participated in the care of the patient.: Yes I have reviewed all pertinent clinical information, including history, physical exam and plan: Yes Notes (Text): 02/14/17 17:10 Medical attending: Patient was seen and examined by me, agrees the above note by medical insurance clerk. This is my first time seeing her following the surgery for the tumor removal. She was in the intensive care unit for several days and is now out of the ICU. Her family members were safely at bedside and we can discuss with the help of the family. The family explained that her speech appears to be slow to them. She has a lot of profound weakness on the right side of her body. She has to use the left side leg as well as left arm. With the help of the family members translating they explained that she does know person place and time however there are some questions where when the ask her she draws complete blank. Ideally at this time we will try to get the patient to an acute rehabilitation. However due to the patient's immigration as well as financial situation this might not be possible. The family was aware of this from previous when we have discussed. Regardless at some point the patient will need to follow-[facility] at the [facility]. The caseworkers are at this moment trying to get the patient some type of outpatient rehabilitation approved. Thank you very much, Abel Schilling
[2017-02-14 17:54] VITALS: RESP 20
--- NOTE | 2017-02-14 20:46 | CARD ---
APPROVED REPORT EKG Measurement Heart [id number] <Conclusion> Sinus tachycardia Right atrial enlargement ST & T wave abnormality, consider lateral ischemia Abnormal ECG
[2017-02-15] MEDS: Dexamethasone 4 mg/1 ml IVP SCH ×4 (05:00→22:52)
[2017-02-15] MEDS: levETIRAcetam 500 MG in Sodium Chloride 0.9% 100 ML IVPB SCH ×2 (05:00→17:54)
--- NOTE | 2017-02-15 05:57 | CP.PCM.PN ---
<Sandy Baig - Last Filed: 02/15/17 05:54> Subjective - Date & Time of Evaluation Date of Evaluation: 02/15/17 Time of Evaluation: 00:00 - Subjective Subjective: Medicine Progress Note: Patient seen and examined at bedside. Patient appears lethargic and upon questioning speaks softly and mumbles. Unable to get complete ROS. Objective - Vital Signs/Intake and Output Vital Signs (last 24 hours): Temp Pulse Resp BP Pulse Ox 97.9 F 71 20 148/83 96 02/15/17 04:24 02/15/17 04:24 02/15/17 04:24 02/15/17 04:24 02/15/17 04:24 Intake and Output: 02/14/17 02/15/17 18:59 06:59 Intake Total 105 Balance 105 - Medications Medications: Current Medications Acetaminophen (Tylenol 325mg Tab) 650 mg PO Q6 PRN PRN Reason: Pain, moderate (4-7) Last Admin: 02/12/17 14:44 Dose: 650 mg Dexamethasone (Decadron Inj) 4 mg IVP Q6H [facility] Stop: 02/16/17 23:59 Last Admin: 02/14/17 23:37 Dose: 4 mg Dexamethasone (Decadron Inj) 2 mg IVP Q6 [facility] Stop: 02/20/17 12:00 Dexamethasone (Decadron Inj) 2 mg IVP Q12 [facility] Stop: 02/25/17 12:00 Diphenhydramine HCl (Benadryl) 12.5 mg IVP Q12 PRN PRN Reason: Allergy symptoms Last Admin: 02/09/17 17:42 Dose: 12.5 mg Famotidine (Pepcid) 20 mg IVP DAILY [facility] Last Admin: 02/14/17 10:13 Dose: 20 mg Levetiracetam 500 mg/ Sodium (Chloride) 105 mls @ 420 mls/hr IVPB Q12H [facility] Last Admin: 02/14/17 17:12 Dose: 420 mls/hr Ondansetron HCl (Zofran Inj) 4 mg IVP Q4 PRN PRN Reason: Nausea/Vomiting Last Admin: 02/02/17 11:31 Dose: 4 mg - Labs Labs: 02/13/17 06:02 02/13/17 06:02 PT 11.5 SECONDS (9.7-12.2) 02/01/17 16:23 INR 1.0 02/01/17 16:23 APTT 28 SECONDS (21-34) 02/09/17 11:29 - Constitutional Appears: Non-toxic, No Acute Distress, Chronically Ill - Head Exam Head Exam: ATRAUMATIC, NORMAL INSPECTION, NORMOCEPHALIC - Eye Exam Eye Exam: EOMI - ENT Exam ENT Exam: Mucous Membranes Moist - Respiratory Exam Respiratory Exam: Clear to Ausculation Bilateral, NORMAL BREATHING PATTERN - Cardiovascular Exam Cardiovascular Exam: REGULAR RHYTHM - GI/Abdominal Exam GI & Abdominal Exam: Soft, Normal Bowel Sounds. absent: Tenderness - Extremities Exam Extremities Exam: absent: Joint Swelling, Tenderness - Neurological Exam Neurological Exam: Alert, Awake. 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 No sensation. * Continue PT/OT * Case management says TCU at [place] will take her for outpatient PT if she qualifies for medicare * Eating on her own * Off-loading boots * Needs a wheelchair <Abel Schilling - Last Filed: 02/15/17 08:22> Objective - Vital Signs/Intake and Output Vital Signs (last 24 hours): Temp Pulse Resp BP Pulse Ox 97.9 F 71 20 148/83 96 02/15/17 04:24 02/15/17 04:24 02/15/17 04:24 02/15/17 04:24 02/15/17 04:24 Intake and Output: 02/15/17 02/15/17 06:59 18:59 Intake Total 105 Balance 105 - Medications Medications: Current Medications Acetaminophen (Tylenol 325mg Tab) 650 mg PO Q6 PRN PRN Reason: Pain, moderate (4-7) Last Admin: 02/12/17 14:44 Dose: 650 mg Dexamethasone (Decadron Inj) 4 mg IVP Q6H [facility] Stop: 02/16/17 23:59 Last Admin: 02/15/17 05:00 Dose: 4 mg Dexamethasone (Decadron Inj) 2 mg IVP Q6 [facility] Stop: 02/20/17 12:00 Dexamethasone (Decadron Inj) 2 mg IVP Q12 [facility] Stop: 02/25/17 12:00 Diphenhydramine HCl (Benadryl) 12.5 mg IVP Q12 PRN PRN Reason: Allergy symptoms Last Admin: 02/09/17 17:42 Dose: 12.5 mg Famotidine (Pepcid) 20 mg IVP DAILY [facility] Last Admin: 02/14/17 10:13 Dose: 20 mg Levetiracetam 500 mg/ Sodium (Chloride) 105 mls @ 420 mls/hr IVPB Q12H [facility] Last Admin: 02/15/17 05:00 Dose: 420 mls/hr Ondansetron HCl (Zofran Inj) 4 mg IVP Q4 PRN PRN Reason: Nausea/Vomiting Last Admin: 02/02/17 11:31 Dose: 4 mg - Labs Labs: 02/13/17 06:02 02/13/17 06:02 PT 11.5 SECONDS (9.7-12.2) 02/01/17 16:23 INR 1.0 02/01/17 16:23 APTT 28 SECONDS (21-34) 02/09/17 11:29 Attending/Attestation - Attestation I have personally seen and examined this patient.: Yes I have fully participated in the care of the patient.: Yes I have reviewed all pertinent clinical information, including history, physical exam and plan: Yes Notes (Text): 02/15/17 08:11 Medical attending: Patient was seen and examined by me. Agree with the above note by the resident. The patient was seen by me at 8:05 AM. She was awake and alert. This morning family was not at bedside. Currently lab work is still pending. Patient did not appear to be in any acute distress however appeared confused. Flat affect She does squeeze my hand with her left hand and move her left leg. Also as mentioned previously she does not have right hand or right leg strength. So far it does not appear the patient will be accepted to an outpatient rehab center. I explained this to the family yesterday. She remains on IV Decadron at this time. This was started on 02/12. Will have to clarify when this can be tapered down. Abel Schilling
[2017-02-16] MEDS: levETIRAcetam 500 MG in Sodium Chloride 0.9% 100 ML IVPB SCH ×2 (05:35→16:31)
[2017-02-16] MEDS: Dexamethasone 4 mg/1 ml IVP SCH ×4 (05:35→22:39)
[2017-02-16 09:15] LABS: BASO % 0.1 % (0.0-2.0); HEMATOCRIT 46.3 % (34.0-47.0); LYMPH # 1.2 K/uL (1.0-4.3); LYMPH % 11.9 % (20.0-40.0); MEAN CELL VOLUME 88.9 fL (81.0-99.0); MEAN CORPUSCULAR HEMOGLOBIN 30.3 pg (27.0-31.0); MEAN CORPUSCULAR HGB CONC 34.1 g/dL (33.0-37.0); MEAN PLATELET VOLUME 8.2 fL (7.2-11.7); MONO # 0.5 K/uL (0.0-0.8); MONO % 4.6 % (0.0-10.0); NRBC % 0.1 % (0.0-2.0); RED CELL DISTRIBUTION WIDTH 12.9 % (11.5-14.5)
[2017-02-16 09:38] LABS: CHLORIDE 101 mmol/L (98-107)
[2017-02-16 09:39] LABS: SODIUM 140 mmol/L (132-148)
[2017-02-16 09:40] LABS: POTASSIUM 4.2 mmol/L (3.6-5.2)
[2017-02-16 09:42] LABS: ALB/GLOB RATIO 1.2 (1.0-2.1); ALKALINE PHOSPHATASE 51 U/L (38-126); ALT/SGPT 103 U/L (9-52); AST/SGOT 28 U/L (14-36); BILIRUBIN,TOTAL 0.8 mg/dL (0.2-1.3); BLOOD UREA NITROGEN 31 mg/dL (7-17); CARBON DIOXIDE 27 mmol/L (22-30); GFR AFRICAN-AMERICAN > 60; GLUCOSE,RANDOM 165 mg/dL (65-105); TOTAL PROTEIN 7.3 g/dL (6.3-8.3)
[2017-02-16 09:43] LABS: CALCIUM 9.3 mg/dl (8.6-10.4); MAGNESIUM 2.3 mg/dL (1.6-2.3); PHOSPHOROUS 3.9 mg/dL (2.5-4.5)
--- NOTE | 2017-02-16 14:18 | CP.PCM.PN ---
Subjective - Date & Time of Evaluation Date of Evaluation: 02/16/17 Time of Evaluation: 07:00 - Subjective Subjective: PGY1- Medicine Progress Note, Dr. Quintana's Service Patient seen and examined at bedside. Patient appears lethargic and upon questioning speaks softly and mumbles one to two word answers. Underwriting Technician used and patient did not complain of any pain. Patient unable to move right upper or lower extremity. Patient says she cannot feel sensation in right upper or lower extremity. Full review of systems difficult to illicit. Objective - Vital Signs/Intake and Output Vital Signs (last 24 hours): Temp Pulse Resp BP Pulse Ox 98.5 F 62 20 138/81 96 02/16/17 09:29 02/16/17 09:29 02/16/17 09:29 02/16/17 09:29 02/16/17 09:29 Intake and Output: 02/16/17 02/16/17 06:59 18:59 Output Total 500 Balance -500 - Medications Medications: Current Medications Acetaminophen (Tylenol 325mg Tab) 650 mg PO Q6 PRN PRN Reason: Pain, moderate (4-7) Last Admin: 02/15/17 14:02 Dose: 650 mg Dexamethasone (Decadron Inj) 4 mg IVP Q6H [facility] Stop: 02/16/17 23:59 Last Admin: 02/16/17 10:54 Dose: 4 mg Dexamethasone (Decadron Inj) 2 mg IVP Q6 [facility] Stop: 02/20/17 12:00 Dexamethasone (Decadron Inj) 2 mg IVP Q12 [facility] Stop: 02/25/17 12:00 Diphenhydramine HCl (Benadryl) 12.5 mg IVP Q12 PRN PRN Reason: Allergy symptoms Last Admin: 02/09/17 17:42 Dose: 12.5 mg Famotidine (Pepcid) 20 mg IVP DAILY [facility] Last Admin: 02/16/17 09:44 Dose: 20 mg Levetiracetam 500 mg/ Sodium (Chloride) 105 mls @ 420 mls/hr IVPB Q12H [facility] Last Admin: 02/16/17 05:35 Dose: 420 mls/hr Ondansetron HCl (Zofran Inj) 4 mg IVP Q4 PRN PRN Reason: Nausea/Vomiting Last Admin: 02/02/17 11:31 Dose: 4 mg Zinc Sulfate (Zinc Sulfate 220 Mg Cap) 220 mg PO DAILY [facility] Last Admin: 02/16/17 13:05 Dose: 220 mg - Labs Labs: 02/16/17 09:03 02/16/17 09:03 PT 11.5 SECONDS (9.7-12.2) 02/01/17 16:23 INR 1.0 02/01/17 16:23 APTT 28 SECONDS (21-34) 02/09/17 11:29 - Constitutional Appears: Non-toxic, No Acute Distress, Chronically Ill - Head Exam Head Exam: NORMOCEPHALIC Additional comments: robin intact, surgical site clean and dry - Eye Exam Eye Exam: EOMI, Normal appearance - ENT Exam ENT Exam: Mucous Membranes Moist - Neck Exam Neck Exam: absent: Tenderness - Respiratory Exam Respiratory Exam: Clear to Ausculation Bilateral, NORMAL BREATHING PATTERN - Cardiovascular Exam Cardiovascular Exam: REGULAR RHYTHM, RRR - GI/Abdominal Exam GI & Abdominal Exam: Soft, Normal Bowel Sounds - Extremities Exam Extremities Exam: absent: Full ROM, Pedal Edema - Neurological Exam Neurological Exam: Alert, Awake Neuro motor strength exam: Left Upper Extremity: 5, Right Upper Extremity: 0, Right Lower Extremity: 5 - Psychiatric Exam Psychiatric exam: Flat Affect, Normal Mood - Skin Skin Exam: Intact, Normal Color, Warm Assessment and Plan - Assessment and Plan (Free Text) Assessment: S/P Removal of Brain Mass Neurosurgery ([facility]) - F/U reccs * 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 No sensation. * Continue PT/OT * Case management says TCU at [place] will take her for outpatient PT if she qualifies for medicare * Eating on her own * Off-loading boots * Needs a wheelchair * f/u swallow eval Prophylactic measures SCDs, DVT managed by Dr. Weiss (neurosurgery), will follow any further recommendations
[2017-02-17] MEDS: Dexamethasone 4 mg/1 ml IVP SCH ×2 (05:18→13:23)
[2017-02-17] MEDS: levETIRAcetam 500 MG in Sodium Chloride 0.9% 100 ML IVPB SCH (05:18)
[2017-02-17 06:44] LABS: BASO % 0.1 % (0.0-2.0); EOS % 0.1 % (0.0-4.0); HEMATOCRIT 47.5 % (34.0-47.0); LYMPH # 1.7 K/uL (1.0-4.3); LYMPH % 14.2 % (20.0-40.0); MEAN CELL VOLUME 88.9 fL (81.0-99.0); MEAN CORPUSCULAR HGB CONC 33.7 g/dL (33.0-37.0); MEAN PLATELET VOLUME 8.3 fL (7.2-11.7); MONO # 0.6 K/uL (0.0-0.8); MONO % 4.6 % (0.0-10.0); NRBC % 0.1 % (0.0-2.0); RED CELL DISTRIBUTION WIDTH 12.9 % (11.5-14.5); WHITE BLOOD COUNT 11.9 K/uL (4.8-10.8)
[2017-02-17 07:36] LABS: ALB/GLOB RATIO 1.1 (1.0-2.1); BLOOD UREA NITROGEN 30 mg/dL (7-17); CALCIUM 9.4 mg/dl (8.6-10.4); CARBON DIOXIDE 23 mmol/L (22-30); CHLORIDE 98 mmol/L (98-107); GFR AFRICAN-AMERICAN > 60; GLUCOSE,RANDOM 172 mg/dL (65-105); MAGNESIUM 2.4 mg/dL (1.6-2.3); PHOSPHOROUS 4.1 mg/dL (2.5-4.5); POTASSIUM 4.6 mmol/L (3.6-5.2); SODIUM 138 mmol/L (132-148); TOTAL PROTEIN 6.6 g/dL (6.3-8.3)
[2017-02-17 07:37] LABS: ALKALINE PHOSPHATASE 46 U/L (38-126); ALT/SGPT 84 U/L (9-52); AST/SGOT 35 U/L (14-36); BILIRUBIN,TOTAL 0.6 mg/dL (0.2-1.3)
--- NOTE | 2017-02-17 07:45 | CP.PCM.PN ---
Objective - Vital Signs/Intake and Output Vital Signs (last 24 hours): Temp Pulse Resp BP Pulse Ox 97.8 F 54 L 20 134/76 96 02/16/17 23:12 02/17/17 03:02 02/16/17 23:12 02/16/17 23:12 02/16/17 23:12 Intake and Output: 02/17/17 02/17/17 06:59 18:59 Intake Total 300 Balance 300 - Medications Medications: Current Medications Acetaminophen (Tylenol 325mg Tab) 650 mg PO Q6 PRN PRN Reason: Pain, moderate (4-7) Last Admin: 02/15/17 14:02 Dose: 650 mg Dexamethasone (Decadron Inj) 2 mg IVP Q6 [facility] Last Admin: 02/17/17 05:18 Dose: 2 mg Diphenhydramine HCl (Benadryl) 12.5 mg IVP Q12 PRN PRN Reason: Allergy symptoms Last Admin: 02/09/17 17:42 Dose: 12.5 mg Famotidine (Pepcid) 20 mg IVP DAILY [facility] Last Admin: 02/16/17 09:44 Dose: 20 mg Levetiracetam 500 mg/ Sodium (Chloride) 105 mls @ 420 mls/hr IVPB Q12H [facility] Last Admin: 02/17/17 05:18 Dose: 420 mls/hr Ondansetron HCl (Zofran Inj) 4 mg IVP Q4 PRN PRN Reason: Nausea/Vomiting Last Admin: 02/02/17 11:31 Dose: 4 mg Zinc Sulfate (Zinc Sulfate 220 Mg Cap) 220 mg PO DAILY [facility] Last Admin: 02/16/17 13:05 Dose: 220 mg - Labs Labs: 02/17/17 06:29 02/16/17 09:03 PT 11.5 SECONDS (9.7-12.2) 02/01/17 16:23 INR 1.0 02/01/17 16:23 APTT 28 SECONDS (21-34) 02/09/17 11:29
[2017-02-17] MEDS ORDERED: Dexamethasone 4 mg/1 ml IVP SCH (12:00)
--- NOTE | 2017-02-17 15:18 | CP.PCM.DIS ---
<Sandy Baig - Last Filed: 02/17/17 20:15> Provider - Provider Date of Admission: 02/01/17 20:04 Attending physician: Abel Schilling DO Time Spent in preparation of Discharge (in minutes): 40 Hospital Course - Lab Results Lab Results: Micro Results 02/13/17 22:05 Naris MRSA Culture - Final MRSA NOT DETECTED 02/10/17 Unknown Naris MRSA Culture (Admit) - Final MRSA NOT DETECTED Most Recent Lab Values WBC 11.9 K/uL (4.8-10.8) H 02/17/17 06:29 RBC 5.34 Mil/uL (3.80-5.20) H 02/17/17 06:29 Hgb 16.0 g/dL (11.0-16.0) 02/17/17 06:29 Hct 47.5 % (34.0-47.0) H 02/17/17 06:29 MCV 88.9 fL (81.0-99.0) 02/17/17 06:29 MCH 30.0 pg (27.0-31.0) 02/17/17 06:29 MCHC 33.7 g/dL (33.0-37.0) 02/17/17 06:29 RDW 12.9 % (11.5-14.5) 02/17/17 06:29 Plt Count 429 K/uL (130-400) H 02/17/17 06:29 MPV 8.3 fL (7.2-11.7) 02/17/17 06:29 Neut % (Auto) 81.0 % (50.0-75.0) H 02/17/17 06:29 Lymph % (Auto) 14.2 % (20.0-40.0) L 02/17/17 06:29 [place] % (Auto) 4.6 % (0.0-10.0) 02/17/17 06:29 Eos % (Auto) 0.1 % (0.0-4.0) 02/17/17 06:29 Baso % (Auto) 0.1 % (0.0-2.0) 02/17/17 06:29 Neut # 9.6 K/uL (1.8-7.0) H 02/17/17 06:29 Lymph # 1.7 K/uL (1.0-4.3) 02/17/17 06:29 [place] # 0.6 K/uL (0.0-0.8) 02/17/17 06:29 Eos # 0.0 K/uL (0.0-0.7) 02/17/17 06:29 Baso # 0.0 K/uL (0.0-0.2) 02/17/17 06:29 Neutrophils % (Manual) 89 % (50-75) H 02/12/17 06:40 Lymphocytes % (Manual) 8 % (20-40) L 02/12/17 06:40 Monocytes % (Manual) 3 % (0-10) 02/12/17 06:40 Platelet Estimate Normal (NORMAL) 02/12/17 06:40 RBC Morphology Normal 02/12/17 06:40 PT 11.5 SECONDS (9.7-12.2) 02/01/17 16:23 INR 1.0 02/01/17 16:23 APTT 28 SECONDS (21-34) 02/09/17 11:29 Sodium 138 mmol/L (132-148) 02/17/17 06:29 Potassium 4.6 mmol/L (3.6-5.2) 02/17/17 06:29 Chloride 98 mmol/L (98-107) 02/17/17 06:29 Carbon Dioxide 23 mmol/L (22-30) 02/17/17 06:29 Anion Gap 22 (10-20) H 02/17/17 06:29 BUN 30 mg/dL (7-17) H 02/17/17 06:29 Creatinine 0.6 MG/DL (0.7-1.2) L 02/17/17 06:29 Est GFR ( Amer) > 60 02/17/17 06:29 Est GFR (Non-Af Amer) > 60 02/17/17 06:29 POC Glucose (mg/dL) 174 mg/dL (65-110) H 02/17/17 12:42 Random Glucose 172 mg/dL (65-105) H 02/17/17 06:29 Hemoglobin A1c 5.6 % (4.2-6.5) 02/01/17 16:23 Calcium 9.4 mg/dl (8.6-10.4) 02/17/17 06:29 Phosphorus 4.1 mg/dL (2.5-4.5) 02/17/17 06:29 Magnesium 2.4 mg/dL (1.6-2.3) H 02/17/17 06:29 Total Bilirubin 0.6 mg/dL (0.2-1.3) 02/17/17 06:29 AST 35 U/L (14-36) 02/17/17 06:29 ALT 84 U/L (9-52) H 02/17/17 06:29 Alkaline Phosphatase 46 U/L (38-126) 02/17/17 06:29 Troponin I < 0.0120 ng/mL (0.00-0.120) 02/01/17 16:23 Total Protein 6.6 g/dL (6.3-8.3) 02/17/17 06:29 Albumin 3.5 g/dL (3.5-5.0) 02/17/17 06:29 Globulin 3.1 gm/dL (2.2-3.9) 02/17/17 06:29 Albumin/Globulin Ratio 1.1 (1.0-2.1) 02/17/17 06:29 Triglycerides 43 mg/dL (0-149) D 02/02/17 07:30 Cholesterol 176 mg/dL (0-199) 02/02/17 07:30 LDL Cholesterol Direct 95 mg/dL (0-129) 02/02/17 07:30 HDL Cholesterol 70 mg/dL (30-70) 02/02/17 07:30 TSH 3rd Generation 1.83 mIU/L (0.46-4.68) 02/02/17 07:30 Stool Occult Blood Negative (NEGATIVE) 02/03/17 14:57 Blood Type B POSITIVE 02/09/17 11:27 Antibody Screen Negative 02/09/17 11:27 - Hospital Course Hospital Course: HPI: Patient is a 62 year old female with pmhx of hypertension who presents today with right sided weakness. Patient was at home around 3:15pm when she started to feel dizzy and weakness in her right arm and leg and was unable to walk. She then developed continuous rhythmic jerking of the right upper extremity which responded to ativan in the ED. Patient had been feeling fine until today. 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 Patient was seen after having received 1,000mg keppra and 6mg ativan. She had no movements in upper and lower extremity. Patient was asleep and unable to answer ROS due to the medications. History was provided by the family at bedside. As per family patient was having no chest pain or shortness of breath and had no symptoms like this in the past. PMD: Dr. Elliott Pmhx: HTN Psurg: none Famhx: none known Social: lives with and son, fully functioning/ active, denies tobacco, alcohol, drugs Home Medication: takes something for htn (family did not know what) that was stopped 2 days ago because she ran out Patient stable for discharge per Dr. Schilling. Hospital Course: 02/01/17: CXR performed and was unremarkable. EKG performed and showed Sinus tachycardia, right atrial enlargement, and ST and T wave abnormality. Head CT performed and showed left frontal mass v acute subacute lobar brain infarction of left frontal lobe with minimal rightward midline shift. CT Angio performed and was unremarkable but recommended F/u MRI for possible evolving brain infarction v brain tumor. Dr. Iverson consulted for neurological symptoms. Patient admitted due to severity of symptoms and further work up. 02/02/17: Chest/Abdomen/Pelvis CT performed and showed no malignancy in chest abdomen or pelvis. Limited b/l basilar atelectasis in lower lobes, no lymphadenopathy noted, simple left renal cyst identified. Lower extremity duplex performed and showed no abnormalities b/l. Dr. Min consulted for possible brain tuumor Patient started on Tylenol 650mg PO PRN, Pepcid 20mg IV daily, Keppra 500mg IV Q12, Zofran 4mg IV Q4 02/03/17: Carotid dopplers performed and was unremarkable. 02/04/17: Head MRA performed and showed unremarkable cranial circulation abnormalities. Neck MRA performed and showed no evidence of occlusion or stenosis of arteries, there is asymmetry of the vertebral arteries right sided which is more larger in caliber than left. Brain MRI performed and showed large ellipitical shaped heterogenously enhancing mass in the medial aspect of the left frontal butting the interhemispheric fissure and extending interiorly, findings consistent with tumor. 02/05/17: Echocardiogram performed and showed EF of 65% and cardiac structures to be within normal limits. 02/06/17: Dr. Weiss consulted for neurosurgery to excise tumor 02/09/17: CXR performed and was unremarkable. Patient developed rash, Benadryl 12.5mg IV q12 given. 02/10/17: Patient underwent neurosurgery by Dr. Weiss who performed craniotomy with excisional biopsy of brain tumor which was sent for biopsy. Patient started PT/OT/speech therapy 02/11/17: Head CT performed and showed trace post operative hemorrhage noted at operative site, rightward midline shift on basis of postop edema, mild pneumocephaly with remainder of brain reflecting mild diffuse cerebral atrophy, minimal parafalcine subdural hematoma appreciated. 02/16/17: Patient started on Zinc 220mg PO daily 02/17/17: Patient stable for discharge per Dr. Schilling. Patient to start new home medications: 500mg Levetiracetam q12h daily by mouth 2mg by mouth every 8 hours Dexamenthasone for 7 days 2mg by mouth twice a day Dexamethasone for 7 days 2mg by mouth daily Dexamethasone for 7 days Prescription for a light wheel chair Home physical therapy, occupational therapy, speech therapy 2 times per week. Patient is to follow up with [facility] ([facility]) at [facility] in 1-2 weeks. Phone number to make an appointment: Patient to return to the Emergency Room if symptoms worsen. This is a brief summary of events. For a complete course, refer to the medical record. Discharge Exam - Head Exam Head Exam: NORMOCEPHALIC. absent: ATRAUMATIC (s/p frontal tumor resection ) - Eye Exam Eye Exam: Normal appearance - ENT Exam ENT Exam: Mucous Membranes Moist - Respiratory Exam Respiratory Exam: Clear to PA & Lateral, NORMAL BREATHING PATTERN - Cardiovascular Exam Cardiovascular Exam: REGULAR RHYTHM, RRR, +S1, +S2 - GI/Abdominal Exam GI & Abdominal Exam: Normal Bowel Sounds, Soft. absent: Tenderness - Extremities Exam Extremities exam: normal inspection - Neurological Exam Neurological exam: Alert, Oriented x3 Additional comments: Right Lower and Upper extremity muscle strength 0/5 Left upper and lower extremity muscle strength 3/5 Decreased sensation on the right side - Psychiatric Exam Psychiatric exam: Flat Affect - Skin Skin Exam: Normal Color, Warm Discharge Plan - Discharge Medications Prescriptions: Dexamethasone [Decadron Inj] 2 mg IVP Q8H #21 vial levETIRAcetam [Keppra] 500 mg IVPB Q12H #60 vial - Follow Up Plan Condition: SERIOUS Disposition: HOME/ ROUTINE Instructions: Dexamethasone (By mouth), Levetiracetam (By mouth), Complete Blenderized Diet (DC), Craniotomy for Tumor Resection (DC), New-Onset Seizure in Adults (DC) Additional Instructions: [facility] [address] [facility] [phone] , 8 AM- 3 PM GO TO [facility] OUT THERAPY DEPARTMENT 9:30 AM TO REGISTER, 10 AM FOR OCCUPATIONAL THERAPY, 11 AM PHYSICAL THERAPY AND 1 PM SPEECH THERAPY Patient to start new home medications: 500mg Levetiracetam q12h daily by mouth 2mg by mouth every 8 hours Dexamenthasone for 7 days 2mg by mouth twice a day Dexamethasone for 7 days 2mg by mouth daily Dexamethasone for 7 days Prescription for a light wheel chair Home physical therapy, occupational therapy, speech therapy 2 times per week. Patient is to follow up with [facility] ([facility] level) at [facility] in 1-2 weeks. Phone number to make an appointment: Patient to return to the Emergency Room if symptoms worsen. Referrals: [facility] [Outside] [facility] [Outside] <Abel Schilling - Last Filed: 02/18/17 09:25> Provider - Provider Date of Admission: 02/01/17 20:04 Attending physician: Abel Schilling, DO Hospital Course - Lab Results Lab Results: Micro Results 02/13/17 22:05 Naris MRSA Culture - Final MRSA NOT DETECTED 02/10/17 Unknown Naris MRSA Culture (Admit) - Final MRSA NOT DETECTED Most Recent Lab Values WBC 11.9 K/uL (4.8-10.8) H 02/17/17 06:29 RBC 5.34 Mil/uL (3.80-5.20) H 02/17/17 06:29 Hgb 16.0 g/dL (11.0-16.0) 02/17/17 06:29 Hct 47.5 % (34.0-47.0) H 02/17/17 06:29 MCV 88.9 fL (81.0-99.0) 02/17/17 06:29 MCH 30.0 pg (27.0-31.0) 02/17/17 06:29 MCHC 33.7 g/dL (33.0-37.0) 02/17/17 06:29 RDW 12.9 % (11.5-14.5) 02/17/17 06:29 Plt Count 429 K/uL (130-400) H 02/17/17 06:29 MPV 8.3 fL (7.2-11.7) 02/17/17 06:29 Neut % (Auto) 81.0 % (50.0-75.0) H 02/17/17 06:29 Lymph % (Auto) 14.2 % (20.0-40.0) L 02/17/17 06:29 [place] % (Auto) 4.6 % (0.0-10.0) 02/17/17 06:29 Eos % (Auto) 0.1 % (0.0-4.0) 02/17/17 06:29 Baso % (Auto) 0.1 % (0.0-2.0) 02/17/17 06:29 Neut # 9.6 K/uL (1.8-7.0) H 02/17/17 06:29 Lymph # 1.7 K/uL (1.0-4.3) 02/17/17 06:29 [place] # 0.6 K/uL (0.0-0.8) 02/17/17 06:29 Eos # 0.0 K/uL (0.0-0.7) 02/17/17 06:29 Baso # 0.0 K/uL (0.0-0.2) 02/17/17 06:29 Neutrophils % (Manual) 89 % (50-75) H 02/12/17 06:40 Lymphocytes % (Manual) 8 % (20-40) L 02/12/17 06:40 Monocytes % (Manual) 3 % (0-10) 02/12/17 06:40 Platelet Estimate Normal (NORMAL) 02/12/17 06:40 RBC Morphology Normal 02/12/17 06:40 PT 11.5 SECONDS (9.7-12.2) 02/01/17 16:23 INR 1.0 02/01/17 16:23 APTT 28 SECONDS (21-34) 02/09/17 11:29 Sodium 138 mmol/L (132-148) 02/17/17 06:29 Potassium 4.6 mmol/L (3.6-5.2) 02/17/17 06:29 Chloride 98 mmol/L (98-107) 02/17/17 06:29 Carbon Dioxide 23 mmol/L (22-30) 02/17/17 06:29 Anion Gap 22 (10-20) H 02/17/17 06:29 BUN 30 mg/dL (7-17) H 02/17/17 06:29 Creatinine 0.6 MG/DL (0.7-1.2) L 02/17/17 06:29 Est GFR ( Amer) > 60 02/17/17 06:29 Est GFR (Non-Af Amer) > 60 02/17/17 06:29 POC Glucose (mg/dL) 174 mg/dL (65-110) H 02/17/17 12:42 Random Glucose 172 mg/dL (65-105) H 02/17/17 06:29 Hemoglobin A1c 5.6 % (4.2-6.5) 02/01/17 16:23 Calcium 9.4 mg/dl (8.6-10.4) 02/17/17 06:29 Phosphorus 4.1 mg/dL (2.5-4.5) 02/17/17 06:29 Magnesium 2.4 mg/dL (1.6-2.3) H 02/17/17 06:29 Total Bilirubin 0.6 mg/dL (0.2-1.3) 02/17/17 06:29 AST 35 U/L (14-36) 02/17/17 06:29 ALT 84 U/L (9-52) H 02/17/17 06:29 Alkaline Phosphatase 46 U/L (38-126) 02/17/17 06:29 Troponin I < 0.0120 ng/mL (0.00-0.120) 02/01/17 16:23 Total Protein 6.6 g/dL (6.3-8.3) 02/17/17 06:29 Albumin 3.5 g/dL (3.5-5.0) 02/17/17 06:29 Globulin 3.1 gm/dL (2.2-3.9) 02/17/17 06:29 Albumin/Globulin Ratio 1.1 (1.0-2.1) 02/17/17 06:29 Triglycerides 43 mg/dL (0-149) D 02/02/17 07:30 Cholesterol 176 mg/dL (0-199) 02/02/17 07:30 LDL Cholesterol Direct 95 mg/dL (0-129) 02/02/17 07:30 HDL Cholesterol 70 mg/dL (30-70) 02/02/17 07:30 TSH 3rd Generation 1.83 mIU/L (0.46-4.68) 02/02/17 07:30 Stool Occult Blood Negative (NEGATIVE) 02/03/17 14:57 Blood Type B POSITIVE 02/09/17 11:27 Antibody Screen Negative 02/09/17 11:27 Attending/Attestation - Attestation I have personally seen and examined this patient.: Yes I have fully participated in the care of the patient.: Yes I have reviewed all pertinent clinical information, including history, physical exam and plan: Yes Notes (Text): 02/18/17 09:14 Medical Attending: Patient was seen and examined by me, agrees the above note by medical oncologist. Today were try discharged patient. She's been here for almost 18 days now. It's been 7 days after the neurosurgical removed the left frontal parietal parenchymal lobe craniotomy and excisional biopsy of a brain tumor. Since that time she's had right arm and right leg mohit plegia. She is not able to walk. She is able to speak a few words here and there answer yes or no to some questions. With the patient's son at bedside she does appear to remember him as well as remember some the immediate family members. There seems to be some confusion with the family members. The people that I've been seeing the most are the patient's son as well as her who've been both faithfully at her bedside whenever we come to the room. However today I was confronted by another family member who I've never met before who identified herself as the patient's sister she was upset she was yelling at us because she had never seen me before. I explained to this family member that we've been seeing the patient every single day since her admission. This family member was also extremely upset that the patient was not going to rehabilitation again I've been explained this to the patient's son as well as her that in a more ideal world we be able to get her to an acute rehabilitation, however because of their financial situation this was not possible per my discussion with the caseworkers the best we've been able to do is try to get her to calm several days a week to an outpatient rehabilitation but then she would have to go home that same day and this would go on for several weeks. Furthermore she have to be on long tapering dose of Decadron, as well as take Keppra for seizure prophylaxis. We have been very careful to explain to the son as well as the for the past 2 weeks that the patient will have a lot of disability for the remainder of her life - this new family member was not aware of this, and she explained to me and the staff that she was expecting the patient to make a complete recovery. I did explain to her that unfortunately considering the situation of the brain tumor at this was not likely that she would be in a wheelchair bound. We emphasized to the patient's son that she needs to follow-up here at the [facility] clinic for further checkups as well as biopsy results of that tumor. She may or may not need chemotherapy depending on the biopsy results. The son did later asked me if I felt as if his mother was in any condition to get things such as chemotherapy or radiation. I was santa with him I explained to him that because of the weakness that she's having at this moment it appeared to be a difficult prognosis long-term Thank you very much, Abel Schilling
[2017-02-17 17:11] VITALS: BP 144/84; PULSE 57; TEMP 98.1; O2SAT 95
[2017-02-21] MEDS ORDERED: Dexamethasone 4 mg/1 ml IVP SCH ×2 (10:00→22:00)
== END 2017-02-17 17:25 | disposition home or self-care (01) | DRG 1 ==
LOC: C.ER 16:02 → C.9E 20:04 → C.6T 20:56 → C.9S 02-10 07:55 → C.9I 02-10 12:23 → C.6T 02-13 19:35
PROVIDERS: ADMIT Internal Medicine; ATTEND Hospitalist
PROC: 00B00ZX Excision of Brain, Open Approach, Diagnostic (ICD-10-PCS; principal; 2017-02-10 07:45)
DX: C71.1 Malignant neoplasm of frontal lobe (principal); G40.109 Localization-related (focal) (partial) symptomatic epilepsy and epileptic syndromes with simple partial seizures, not intractable, without status epilepticus; G81.91 Hemiplegia, unspecified affecting right dominant side; J98.11 Atelectasis; R47.01 Aphasia; I48.0 Paroxysmal atrial fibrillation; I10 Essential (primary) hypertension; L29.9 Pruritus, unspecified; N63 Unspecified lump in breast; I34.0 Nonrheumatic mitral (valve) insufficiency; Z91.14 Patient's other noncompliance with medication regimen